=== PATIENT | female | born 1940 | race African-American/Black ===

== ENCOUNTER 2017-07-31 09:58 | Outpatient (CLI) | payer MEDICARE ==
--- NOTE | 2017-07-31 11:25 | RAD ---
2 VIEW CHEST: Date: 07/31/17 HISTORY: Dyspnea. COMPARISON: 09/28/15. FINDINGS: Lungs are clear. No infiltrates seen. Heart size within normal range. Mild aortic calcification again noted. Osseous structures unremarkable. IMPRESSION: No acute finding or interval change noted. POS: [facility]
== END 2017-07-31 09:59 | disposition home or self-care (01) ==
LOC: RAD 09:58
PROVIDERS: ATTEND Internal Medicine
DX: R06.00 Dyspnea, unspecified (principal)
CPT/HCPCS: 71020

== ENCOUNTER 2017-09-04 20:30 | Outpatient (CLI) | payer MEDICARE | END 2017-09-04 20:31 | disposition home or self-care (01) | LOC: SLEEPLAB 20:30 | PROVIDERS: ATTEND Internal Medicine | DX: G47.33 Obstructive sleep apnea (adult) (pediatric) (principal); R53.83 Other fatigue; I11.0 Hypertensive heart disease with heart failure; I50.9 Heart failure, unspecified; E11.9 Type 2 diabetes mellitus without complications; R09.02 Hypoxemia | CPT/HCPCS: 95810 ==

== ENCOUNTER 2017-09-24 15:48 | Inpatient (IN) | payer MEDICARE ==
[2017-09-24] MEDS ORDERED: Albuterol Sulfate 2.5 mg/3 ml Neb ONE (16:10)
--- NOTE | 2017-09-24 16:13 | RAD ---
ONE VIEW CHEST: COMPARISON: 07/31/17. HISTORY: Shortness of breath. FINDINGS: Atherosclerosis of the aorta. Slight elongation of the thoracic aorta. Normal cardiac silhouette. The pulmonary vessels are slightly prominent. Lungs are hyperinflated. Chronic changes, without con solidation or mass. No pneumothorax or osseous abnormalities. IMPRESSION: 1. Atherosclerosis. 2. Hyperinflation with chronic changes. 3. No acute cardiopulmonary process. POS: [facility]
[2017-09-24 16:17] LABS: #Eosinphils 0.2 thou/uL (0.0-0.7); #Lymphocytes 1.5 thou/uL (1.20-3.40); #Monocytes 0.8 thou/uL (0.11-0.59); #Neutrophils 10.5 thou/uL (1.40-6.50); %Basophils 0.4 % (0.0-1.0); %Eosinophils 1.8 % (0.0-10.0); %Lymphocytes 11.5 % (21.0-51.0); %Monocytes 6.3 % (0.0-10.0); %Neutrophils 80.1 % (42.0-75.0); Hemoglobin 13.4 g/dL (12.0-16.0); Mean Corpuscular HGB CONC 32.1 g/dL (32.0-36.0); Mean Corpuscular Hemoglobin 33.6 pg (27.0-31.0); Mean Platelet Volume 8.8 fL (7.4-10.4); Platelet Count 216 thou/uL (130-400); RBC Distribution Width 11.5 % (11.5-14.5); Red Blood Cell (RBC) Count 3.98 mill/uL (4.20-5.40); White Blood Cell (WBC) Count 13.2 thou/uL (4.8-10.8)
[2017-09-24] MEDS ORDERED: cefTRIAXone\\ROCEPHIN 1 GM in Sodium Chloride 0.9% 100 ML IVPB SCH (16:30)
[2017-09-24 16:34] LABS: ALT (SGPT) 11 U/L (8-55); AST (SGOT) 15 U/L (5-34); Albumin 3.6 g/dL (3.4-4.8); Alkaline Phosphatase 106 U/L (40-150); Anion Gap 12 mmol/L (10-20); BUN (Urea Nitrogen) 18 mg/dL (9.8-20.1); Bilirubin, Total 0.3 mg/dL (0.2-1.2); Calc. Creatinine Clearance 0 mL/min (70-130); Calcium 8.6 mg/dL (7.8-10.44); Carbon Dioxide 25 mmol/L (23-31); Chloride 106 mmol/L (98-107); Estimated GFR-MDRD 85; Globulin 3.5 g/dL (2.4-3.5); Glucose 242 mg/dL (83-110); Potassium 4.2 mmol/L (3.5-5.1); Protein, Total 7.1 g/dL (6.0-8.3); Sodium 139 mmol/L (136-145)
[2017-09-24 16:38] LABS: CKMB 2.4 ng/mL (0-6.6); Troponin I Less than 0.010 ng/mL (< 0.028)
[2017-09-24] MEDS ORDERED: Ondansetron HCl/PF 4 MG/2 ML Vial IVP PRN (17:26)
[2017-09-24] MEDS ORDERED: Acetaminophen 650 MG Suppository PR PRN (17:26)
[2017-09-24] MEDS ORDERED: Dextrose 5% in Water 1,000 ML IV PRN (17:28)
[2017-09-24] MEDS ORDERED: Dextrose 50% Abboject 50 ML SYRINGE SLOW IVP PRN (17:28)
[2017-09-24 17:43] LABS: CO2 Tension 58.9 mmHg (35.0-45.0); Hematocrit-ABG 41.9 % (36.0-47.0); Hemoglobin (Hb) 12.9 g/dL (12.0-16.0); O2 Tension (PaO2) 231.3 mmHg (80.0-100.0); pH, Arterial 7.26 (7.35-7.45)
[2017-09-24 17:44] LABS: Analyzer IN Cardio ER; Calcium, Ionized 1.2 mmol/L (1.12-1.30); Puncture Site RRA
--- NOTE | 2017-09-24 17:58 | HP ---
PRIMARY CARE PHYSICIAN: Ben Otto M.D. PUBLIC HEALTH DIETITIAN: Dr. Becker. CHIEF COMPLAINT: Shortness of breath. HISTORY OF PRESENT ILLNESS: Ms. Duarte is a pleasant 77-year-old lady who was seen at [facility] on 09/24/2017. She is accompanied by her . Ms. Duarte is able to provide some history. History was also obta ined from her , review of medical records and discussion with the emergency room physician. She was reportedly doing well until yesterday. Today morning, she developed shortness of breath. Sh isauro also developed a cough that is productive of whitish sputum. She did not have any fevers. She did not have any nausea, vomiting, diarrhea, or abdominal pain. There are no sick contacts. She was found to be hypoxic, tachypneic and hypertensive. She was therefore brought to the emergency room. REVIEW OF SYSTEMS: The following complete review of systems was negative, unless otherwise mentioned in the HPI or below: Constitutional: Weight loss or gain, ability to conduct usual activities. Sk in: Rash, itching. Eyes: Double vision, pain. ENT/Mouth: Nose bleeding, neck stiffness, pain, te nderness. Cardiovascular: Palpitations, dyspnea on exertion, orthopnea. Respiratory: Shortness of breath, wheezing, cough, hemoptysis, fever or night sweats. Gastrointestinal: Poor appetite, abdom inal pain, heartburn, nausea, vomiting, constipation, or diarrhea. Genitourinary: Urgency, frequenc y, dysuria, nocturia. Musculoskeletal: Pain, swelling. Neurologic/Psychiatric: Anxiety, depressio n. Allergy/Immunologic: Skin rash, bleeding tendency. PAST MEDICAL HISTORY: Significant for COPD, hypertension, diabetes mellitus, and dyslipidemia. PAST SURGICAL HISTORY: None. SOCIAL HISTORY: The patient currently smokes half a pack of cigarettes a day. She denies alcohol us e or recreational drug use. FAMILY HISTORY: Significant for severe COPD in her brother. ALLERGIES: LATEX. CURRENT MEDICATIONS: Simvastatin 40 mg daily, lisinopril 2.5 mg daily, metformin 500 mg 2 times a da y, glyburide 10 mg daily, aspirin 81 mg daily, vitamin B12 of 500 mcg daily, Anoro Ellipta 1 puff pascale ly, Lantus insulin 10 units subcutaneously daily, Proventil 90 mcg inhalation as needed, Ventolin neb ulizers as needed. PHYSICAL EXAMINATION: GENERAL: Ms. Duarte is awake and alert, in moderate respiratory distress on a bilevel positive airway pressure machine. VITAL SIGNS: Blood pressure is 140/69, pulse is 101. She is breathing at rate of 30 and saturating 98% on BiPAP. She is afebrile. EYES: No scleral icterus. No conjunctival pallor. ENT: Moist mucosal membranes, no oropharyngeal erythema or exudates. NECK: Accessory muscles of breathing are active. Trachea is midline. No thyromegaly. I could not assess jugular veins. RESPIRATORY: Accessory muscles of breathing are active. Chest wall movements are symmetric bilatera lly. Lung examination reveals diffuse expiratory wheeze. CARDIOVASCULAR: S1 and S2 are heard, regular. LUNGS: Peripheral pulses are palpable. No carotid bruit, no pericardial rub. ABDOMEN: Soft, nontender, bowel sounds heard, no hepatomegaly, no splenomegaly. NEUROLOGIC: Cranial nerves II-XII are intact. Deep tendon reflexes are 2+. SKIN: Bilateral lower extremity edema at the ankles, no rashes or subcutaneous nodules. LYMPHATIC: No cervical lymphadenopathy. PSYCHIATRIC: The patient appears anxious, oriented to person, place, and time. LABORATORY DATA: Ms. Duarte's labs and investigations were reviewed. I reviewed her electrocardiogra m, which shows sinus tachycardia, no ST changes to suggest an acute coronary syndrome. I also review ed her chest x-ray, which does not show any pulmonary infiltrates. She has hyperinflated lungs. Lab oratory investigations showed leukocytosis with 13,200 white cells, of which 80% are neutrophils, nor mal hemoglobin, normal platelet count, unremarkable comprehensive metabolic profile, elevated lactic acid level of 2.4, normal troponin I and a normal BNP of 27.4. ASSESSMENT AND PLAN: Ms. Duarte is a pleasant 77-year-old lady who was seen at [facility]. Her problem list includes: 1. Acute respiratory failure: Ms. Duarte is presenting with acute respiratory failure, likely second martin to chronic obstructive pulmonary disease exacerbation. She will be admitted to the hospital for further management. Pulmonology Service has been consulted by the emergency room physician and katie blank has been started on ceftriaxone, methylprednisolone, and DuoNebs. We will use oxygen p.r.n. We w ill continue BiPAP as needed. 2. Chronic obstructive pulmonary disease exacerbation. Management as described above. 3. Diabetes mellitus. Start Accu-Cheks, sliding scale. 4. Dyslipidemia: Continue statins. 5. Tobacco abuse: Patient has been counseled regarding tobacco cessation, we will start nicotine re placement therapy. 6. Hypertension: Monitor vital signs, titrate antihypertensives as needed. Many thanks for allowing me to participate in your patient's care. Please feel free to contact me wi th any questions or concerns. LEVEL OF RISK: High. LEVEL OF COMPLEXITY: High. ADDENDUM: I discussed Ms. Duarte's code status. She does not wish to be intubated. She is okay with chest comp ressions, electric shocks and vasopressors if needed.
[2017-09-24 18:32] VITALS: BMI 25.7
[2017-09-24] MEDS: Nicotine 14 MG PATCH TD SCH ×2 (18:37→18:52)
[2017-09-24] MEDS: Dextrose 5 % And 0.9 % NaCl 1,000 ML IV SCH (18:45)
[2017-09-24] MEDS: cefTRIAXone\\ROCEPHIN 1 GM, Syringe 0.4 ML in Sterile Water 9.6 ML SLOW IVP SCH (18:51)
[2017-09-24 19:38] LABS: Troponin I 0.018 ng/mL (< 0.028)
[2017-09-24 20:17] LABS: Lactic Acid 2.7 mmol/L (0.5-2.2)
[2017-09-24 22:30] LABS: Troponin I 0.016 ng/mL (< 0.028)
--- NOTE | 2017-09-25 00:43 | CON ---
DATE OF CONSULTATION: 09/24/2017 HISTORY OF PRESENT ILLNESS: A 77-year-old -Irish female, lifelong smoker, continues to smo ke. She had a PFT done in 10/2015, which shows very severe COPD. Numbers showed that she had marked hyperinflation. She now presents with increasing shortness of breath and cough. She just recently saw Dr. Becker in the office, and apparently prescribed low flow O2. She denies any chest pain, chills, sweats, or hemoptysis. PAST MEDICAL HISTORY: Diabetes, severe chronic obstructive pulmonary disease, previous bladder cance r. PAST SURGICAL HISTORY: Cystoscopy. MEDICATIONS: From home includes albuterol inhaler, inhaler, metformin 500, lisinopril 2.5, gly buride 5, simvastatin 40, Combivent inhaler. ALLERGIES: None. SOCIAL/FAMILY HISTORY: Noted ongoing tobacco abuse, no alcohol abuse. REVIEW OF SYSTEMS: Otherwise, 10-point negative. PHYSICAL EXAMINATION: VITAL SIGNS: Sats are BiPAP , respirations 20, blood pressure 130/80, respirations 18. CHEST: Decreased breath sounds, prolonged expiration. No wheezing. CARDIAC: Sinus tachycardia. ABDOMEN: Soft. X-ray shows hyperinflation, no acute infiltrate. LABORATORY DATA: White count 13,000, H&H 13 and 41, platelet count 216. Electrolytes are normal. IMPRESSION: 1. Chronic obstructive pulmonary disease exacerbation, bronchitis of ongoing tobacco. 2. Diabetes. PLAN: Continue noninvasive ventilation. When she is improved switch over to low flow O2. Neb treat ments, steroids, empiric antibiotics. We will notify Dr. Becker, consultation was noted.
[2017-09-25] MEDS: Dextrose 5 % And 0.9 % NaCl 1,000 ML IV SCH (03:33)
[2017-09-25] MEDS: HumaLOG 300 UNITS/3 ML VIAL SC PRN ×2 (06:29→21:43)
[2017-09-25 06:47] LABS: #Lymphocytes 0.6 thou/uL (1.20-3.40); #Monocytes 0.2 thou/uL (0.11-0.59); #Neutrophils 9.6 thou/uL (1.40-6.50); %Basophils 0.1 % (0.0-1.0); %Eosinophils 0.3 % (0.0-10.0); %Lymphocytes 5.8 % (21.0-51.0); %Monocytes 1.6 % (0.0-10.0); %Neutrophils 92.2 % (42.0-75.0); Hemoglobin 13.9 g/dL (12.0-16.0); Mean Corpuscular HGB CONC 31.1 g/dL (32.0-36.0); Mean Corpuscular Hemoglobin 32.6 pg (27.0-31.0); Mean Platelet Volume 9.8 fL (7.4-10.4); Platelet Count 169 thou/uL (130-400); RBC Distribution Width 11.7 % (11.5-14.5); Red Blood Cell (RBC) Count 4.27 mill/uL (4.20-5.40); White Blood Cell (WBC) Count 10.4 thou/uL (4.8-10.8)
[2017-09-25 08:05] LABS: Anion Gap 14 mmol/L (10-20); BUN (Urea Nitrogen) 21 mg/dL (9.8-20.1); Calc. Creatinine Clearance 52 mL/min (70-130); Calcium 9.4 mg/dL (7.8-10.44); Carbon Dioxide 27 mmol/L (23-31); Chloride 106 mmol/L (98-107); Estimated GFR-MDRD 76; Glucose 166 mg/dL (83-110); Potassium 4.7 mmol/L (3.5-5.1); Sodium 142 mmol/L (136-145)
[2017-09-25] MEDS: Enoxaparin Sodium 40 MG/0.4 ML SYRINGE SC SCH (09:31)
[2017-09-25] MEDS: Guaifenesin DM 100-10/5 ML UDCUP PO PRN (09:39)
[2017-09-25] MEDS: Acetaminophen 325 MG TAB PO PRN (09:39)
--- NOTE | 2017-09-25 14:35 | PDOC.PN ---
- Subjective Encounter Start Date: 09/25/17 Encounter Start Time: 14:33 Subjective: feels better.breathing easier - Objective Resuscitation Status: Resuscitation Status DNI:No Intubation MAR Reviewed: Yes Vital Signs & Weight: Vital Signs (12 hours) Temp Pulse Resp BP Pulse Ox 09/25/17 12:01 99 22 H 97 09/25/17 11:59 97.8 F 94 20 131/73 99 09/25/17 08:11 107 H 97 09/25/17 07:40 97.6 F 96 20 165/67 H 95 09/25/17 07:37 97.7 F 75 24 H 98 09/25/17 04:00 97.7 F 75 24 H 137/63 99 09/25/17 03:10 81 Weight Weight 131 lb 6.4 oz I&O: 09/24/17 09/25/17 09/26/17 06:59 06:59 06:59 Intake Total 30 Balance 30 Result Diagrams: 09/25/17 05:35 09/25/17 07:31 Additional Labs: Accuchecks 09/25/17 09/25/17 09/24/17 11:12 05:35 20:14 POC Glucose 214 H 191 H 266 H Phys Exam - Physical Examination Constitutional: NAD HEENT: PERRLA, moist MMs, sclera anicteric, TM's clear, oral pharynx no lesions , 2+ tonsils Neck: no nodes, no JVD, supple, full ROM Respiratory: no wheezing, no rales, no rhonchi, clear to auscultation bilateral Cardiovascular: RRR, no significant murmur Gastrointestinal: soft, non-tender, no distention, positive bowel sounds Musculoskeletal: no edema, pulses present Neurological: non-focal, normal sensation, moves all 4 limbs Psychiatric: normal affect, A&O x 3 Skin: no rash Dx/Plan (1) Acute respiratory failure Code(s): J96.00 - ACUTE RESPIRATORY FAILURE, UNSP W HYPOXIA OR HYPERCAPNIA Status: Acute Qualifiers: Respiratory failure complication: hypoxia and hypercapnia Qualified Code(s) : J96.01 - Acute respiratory failure with hypoxia; J96.02 - Acute respiratory failure with hypercapnia; J96.02 - Acute respiratory failure with hypercapnia; J96.02 - Acute respiratory failure with hypercapnia Comment: improved.Off of Bipap (2) Acute bronchitis with chronic obstructive pulmonary disease (COPD) Code(s): J44.0 - CHRONIC OBSTRUCTIVE PULMON DISEASE W ACUTE LOWER RESP INFCT; J20.9 - ACUTE BRONCHITIS, UNSPECIFIED Status: Acute (3) DM2 (diabetes mellitus, type 2) Status: Acute (4) HLD (hyperlipidemia) Code(s): E78.5 - HYPERLIPIDEMIA, UNSPECIFIED Status: Acute - Plan PT/OT, social work lecturer, respiratory therapy, incentive spirometry, DVT proph w/ SCDs cont nebs,sterois,ABx.PCCM following.NAAT results pending -: 09/02 GPC in blood Cx-palmira cuevas.follow final results -: am labs. -: Ok to transfer out of CCU. * . Review of Systems - Review of Systems Constitutional: negative: fever, chills, sweats, weakness, malaise, other Respiratory: negative: Cough, Dry, Shortness of Breath, Hemoptysis, SOB with Excertion, Pleuritic Pain, Sputum, Wheezing Cardiovascular: negative: chest pain, palpitations, orthopnea, paroxysmal nocturnal dyspnea, edema, light headedness, other Gastrointestinal: negative: Nausea, Vomiting, Abdominal Pain, Diarrhea, Constipation, Melena, Hematochezia, Other Genitourinary: negative: Dysuria, Frequency, Incontinence, Hematuria, Retention , Other Musculoskeletal: negative: Neck Pain, Shoulder Pain, Arm Pain, Back Pain, Hand Pain, Leg Pain, Foot Pain, Other Neurological: negative: Weakness, Numbness, Incoordination, Change in Speech, Confusion, Seizures, Other - Medications/Allergies Allergies/Adverse Reactions: Allergies Allergy/AdvReac Type Severity Reaction Status Date / Time latex Allergy Verified 09/24/17 17:54 Medications: Current Medications Acetaminophen (Tylenol) 650 mg PO Q4H PRN PRN Reason: Headache/Fever or Pain Last Admin: 09/25/17 09:39 Dose: 650 mg Acetaminophen (Tylenol) 650 mg [place] Q4H PRN PRN Reason: Headache/Fever or Pain Albuterol/Ipratropium (Duoneb) 3 ml NEB [id number] [facility] Last Admin: 09/25/17 12:01 Dose: 3 ml Dextrose/Water (Dextrose 50%) 25 gm SLOW IVP PRN PRN PRN Reason: Hypoglycemia Enoxaparin Sodium (Lovenox) 40 mg SC 0900 [facility] Last Admin: 09/25/17 09:31 Dose: 40 mg Glucagon (Glucagon) 1 mg IM PRN PRN PRN Reason: Hypoglycemia Guaifenesin/Dextromethorphan (Robitussin Dm) 15 ml PO Q4H PRN PRN Reason: Cough Last Admin: 09/25/17 09:39 Dose: 15 ml Dextrose/Water (D5w) 1,000 mls @ 0 mls/hr IV .Q0M PRN; As Directed PRN Reason: Hypoglycemia Ceftriaxone Sodium 1 gm/ (Syringe 0.4 ml/ Sterile Water) 10 mls @ 120 mls/hr SLOW IVP 1800 [facility] Last Admin: 09/24/17 18:51 Dose: 10 mls Insulin Human Lispro (Humalog) 0 units SC .MILD SLIDING SCALE PRN PRN Reason: Mild Correctional Scale Last Admin: 09/25/17 06:29 Dose: 2 unit Nicotine (Nicoderm Patch) 14 mg TD Q24HR [facility] Last Admin: 09/24/17 18:52 Dose: 14 mg Ondansetron HCl (Zofran) 4 mg IVP Q6H PRN PRN Reason: Nausea/Vomiting Prednisone (Prednisone) 40 mg PO QAM-WM [facility] Sodium Chloride (Flush - Normal Saline) 10 ml IVF Q12HR [facility] Last Admin: 09/25/17 09:32 Dose: 10 ml Sodium Chloride (Flush - Normal Saline) 10 ml IVF PRN PRN PRN Reason: Saline Flush
[2017-09-25] MEDS ORDERED: Furosemide 40 MG/4 ML VIAL SLOW IVP SCH (17:00)
--- NOTE | 2017-09-25 17:21 | PRG ---
DATE OF SERVICE: 09/25/2017 SERVICE: Pulmonary Medicine. INTERVAL HISTORY: The patient is doing really well from a respiratory standpoint. She presented to the hospital yesterday in a very terrible place. She was hypoxemic and breathing very uncomfortably. She was initiated on a BiPAP and when she originally arrived in the IMCU, was breathing 30 times a minute. She was in visible distress. As the evening wore on, she became more and more comfortable a nd this morning, she is tolerating a very good BiPAP rate. She denies any current fevers, chills, na usea or vomiting. She is coughing up sputum. She has some sick contacts that were positive. PHYSICAL EXAMINATION: VITAL SIGNS: Afebrile, pulse 98, blood pressure 147/69, respirations 20, saturation 100% on 2 liters nasal cannula. GENERAL: The patient is awake and alert, in no apparent distress. LUNGS: Decent air entry for her. There is a prolonged expiratory phase with polyphonic wheezing. D ependent crackles are minimal. HEART: Normal rate, regular. ABDOMEN: Soft, nontender, nondistended, bowel sounds positive. MUSCULOSKELETAL: No cyanosis or clubbing. There is 1+ pitting in the bilateral lower extremities. NEUROLOGIC: Grossly nonfocal. LABORATORY DATA: WBC 10.4, hemoglobin 13.9, platelets 169,000. A PH 7.26, pCO2 of 59, pO2 of 231 on 100% FiO2 at that time. Basic metabolic profile was essentially unremarkable. Troponin is negative x1. Her BNP was also normal and liver function studies were also unremarkable. Respiratory virus p rofile is positive for rhinovirus. Blood cultures x1 is negative. The other one has gram positive c occi growing. Influenza A and B is negative. ASSESSMENT: 1. Acute on chronic hypoxic and hypercapnic respiratory failure. 2. Chronic obstructive pulmonary disease with acute exacerbation secondary to rhinovirus. 3. Acute on chronic diastolic heart failure, minimal. PLAN: I will give her a single dose of Lasix today. We will continue supportive care with antibioti cs, nebulized medications, and steroids. I will switch her over to p.o. prednisone, which will be co ntinued on a daily basis for the time being. The blood culture is likely a contaminant. I would lik e to keep her in the IMCU for an additional 24 hours as she was in a very severe place yesterday and she may need the BiPAP intermittently tonight.
[2017-09-25] MEDS: cefTRIAXone\\ROCEPHIN 1 GM, Syringe 0.4 ML in Sterile Water 9.6 ML SLOW IVP SCH (18:24)
[2017-09-25] MEDS: Nicotine 14 MG PATCH TD SCH (18:24)
[2017-09-26] MEDS: predniSONE 20 MG TAB PO SCH (09:58)
[2017-09-26] MEDS: Enoxaparin Sodium 40 MG/0.4 ML SYRINGE SC SCH (09:58)
--- NOTE | 2017-09-26 10:12 | PRG ---
DATE OF SERVICE: 09/26/2017 SERVICE: Pulmonary Medicine INTERVAL HISTORY: The patient is doing really well from a respiratory standpoint. She is breathing very comfortably. She used her BiPAP last night. It was the best sleep that she has had in a long p eriod of time. She is requesting that we attempt to set this thing up in the outpatient setting [place] I think is reasonable. Otherwise, her cough is improving a little bit. She has a better appetite today and her strength is improving as well. PHYSICAL EXAMINATION: VITAL SIGNS: Afebrile, pulse 88, blood pressure 116/66, respiration 19, saturation 96% on 2 liters n tad cannula. HEENT: Normocephalic, atraumatic. Sclerae are white, conjunctivae pink. Oral and nasal mucosa is m oist without lesions. LUNGS: Improved air entry. There is a slightly prolonged expiratory phase. Wheezing is present, bu t much improved. Crackles are no longer present. HEART: Normal rate, regular. ABDOMEN: Soft, nontender, nondistended. Bowel sounds are positive. MUSCULOSKELETAL: No cyanosis or clubbing. No pitting in the bilateral lower extremities. NEUROLOGIC: Grossly nonfocal. LABORATORY DATA: Respiratory virus panel is positive for rhinovirus. One out of 2 blood cultures is growing alpha hemolytic streptococcus. ASSESSMENT: 1. Acute on chronic hypoxic and hypercapnic respiratory failure. 2. Chronic obstructive pulmonary disease with acute exacerbation secondary rhinovirus. 3. Acute on chronic diastolic heart failure, returned to baseline. DISCUSSION AND PLAN: I have assessed this patient and will be ordering volume ventilation for noctur nal and as needed daytime use for symptom management of chronic respiratory failure. Traditional monica e BiPAP is insufficient due to the severity of the patient's disease. COPD is a major contributing f actor of the patient's chronic respiratory failure. She does not have significant degree of obstruct jay jay apneas. Otherwise, supportive care including nebulized medications, steroids, antibiotics will b e continued. Pulmonary Critical Care will continue to follow. Once the patient indicates that she f eels safe to go home, she can be considered for discharge.
[2017-09-26] MEDS: HumaLOG 300 UNITS/3 ML VIAL SC PRN ×2 (12:08→18:20)
--- NOTE | 2017-09-26 15:17 | PDOC.PN ---
- Subjective Encounter Start Date: 09/26/17 Encounter Start Time: 15:16 Subjective: feels much better but feels that she needs O2 all the time - Objective Resuscitation Status: Resuscitation Status DNI:No Intubation MAR Reviewed: Yes Vital Signs & Weight: Vital Signs (12 hours) Temp Pulse Resp BP Pulse Ox 09/26/17 11:21 97.8 F 97 24 H 121/66 100 09/26/17 11:16 107 H 22 H 100 09/26/17 11:15 97.8 F 97 24 H 100 09/26/17 08:00 97.6 F 88 19 96 09/26/17 07:21 97.6 F 88 19 116/66 96 09/26/17 06:34 97 09/26/17 06:32 90 19 97 09/26/17 04:00 97.8 F 87 20 123/51 L 98 Weight Weight 131 lb 6.4 oz I&O: 09/25/17 09/26/17 09/27/17 06:59 06:59 06:59 Intake Total 30 540 Balance 30 540 Result Diagrams: 09/25/17 05:35 09/25/17 07:31 Additional Labs: Accuchecks 09/26/17 09/26/17 09/25/17 10:38 06:19 20:43 POC Glucose 155 H 87 230 H 09/25/17 16:58 POC Glucose 220 H Microbiology 09/25/17 11:37 Nasopharyngeal swab Respiratory Panel (PCR) - Final+ rhinoVirus 09/24/17 16:05 Nasal swab Influenza Types A,B Direct EIA - Final 09/24/17 16:51 Venous blood - Right Hand Blood Culture - Preliminary Specimen has been received and culture in progress. No Growth to date. 09/24/17 16:00 Venous blood - Left Arm Blood Culture - Preliminary Alpha-Hemolytic Streptococcus Phys Exam - Physical Examination Constitutional: NAD HEENT: PERRLA, moist MMs, sclera anicteric, oral pharynx no lesions Neck: no nodes, no JVD, supple, full ROM Respiratory: no wheezing, clear to auscultation bilateral Cardiovascular: RRR, no significant murmur Gastrointestinal: soft, non-tender, no distention, positive bowel sounds Musculoskeletal: no edema, pulses present Neurological: non-focal, normal sensation, moves all 4 limbs Psychiatric: normal affect, A&O x 3 Skin: no rash Dx/Plan (1) Acute bronchitis with chronic obstructive pulmonary disease (COPD) Code(s): J44.0 - CHRONIC OBSTRUCTIVE PULMON DISEASE W ACUTE LOWER RESP INFCT; J20.9 - ACUTE BRONCHITIS, UNSPECIFIED Status: Acute (2) DM2 (diabetes mellitus, type 2) Status: Acute (3) HLD (hyperlipidemia) Code(s): E78.5 - HYPERLIPIDEMIA, UNSPECIFIED Status: Acute (4) Acute respiratory failure Code(s): J96.00 - ACUTE RESPIRATORY FAILURE, UNSP W HYPOXIA OR HYPERCAPNIA Status: Resolved Qualifiers: Respiratory failure complication: hypoxia and hypercapnia Qualified Code(s) : J96.01 - Acute respiratory failure with hypoxia; J96.02 - Acute respiratory failure with hypercapnia; J96.02 - Acute respiratory failure with hypercapnia; J96.02 - Acute respiratory failure with hypercapnia Comment: improved.Off of Bipap - Plan plan discussed w/ family, PT/OT, social work administrator, respiratory therapy, incentive spirometry, out of bed/ambulate, DVT proph w/SCDs Cont nebs,Po steroids.PCCM following.[place] negative -: Will eval for home O2 candidacy on day of DC -: To be trey up for home CPAP per PCCM.CM to assist -: cont to monitor.DC when OK w PCCM & home set up done * . Review of Systems - Review of Systems Constitutional: negative: fever, chills, sweats, weakness, malaise, other Respiratory: SOB with Excertion. negative: Cough, Dry, Shortness of Breath, Hemoptysis, Pleuritic Pain, Sputum, Wheezing Cardiovascular: negative: chest pain, palpitations, orthopnea, paroxysmal nocturnal dyspnea, edema, light headedness, other Gastrointestinal: negative: Nausea, Vomiting, Abdominal Pain, Diarrhea, Constipation, Melena, Hematochezia, Other Genitourinary: negative: Dysuria, Frequency, Incontinence, Hematuria, Retention , Other Musculoskeletal: negative: Neck Pain, Shoulder Pain, Arm Pain, Back Pain, Hand Pain, Leg Pain, Foot Pain, Other Neurological: negative: Weakness, Numbness, Incoordination, Change in Speech, Confusion, Seizures, Other - Medications/Allergies Allergies/Adverse Reactions: Allergies Allergy/AdvReac Type Severity Reaction Status Date / Time latex Allergy Verified 09/24/17 17:54 Medications: Current Medications Acetaminophen (Tylenol) 650 mg PO Q4H PRN PRN Reason: Headache/Fever or Pain Last Admin: 09/25/17 09:39 Dose: 650 mg Acetaminophen (Tylenol) 650 mg ID Q4H PRN PRN Reason: Headache/Fever or Pain Albuterol/Ipratropium (Duoneb) 3 ml NEB [id number] [facility] Last Admin: 09/26/17 13:33 Dose: 3 ml Cefdinir (Omnicef) 300 mg PO BID [facility] Stop: 10/01/17 21:01 Dextrose/Water (Dextrose 50%) 25 gm SLOW IVP PRN PRN PRN Reason: Hypoglycemia Enoxaparin Sodium (Lovenox) 40 mg SC 0900 [facility] Last Admin: 09/26/17 09:58 Dose: 40 mg Glucagon (Glucagon) 1 mg IM PRN PRN PRN Reason: Hypoglycemia Guaifenesin/Dextromethorphan (Robitussin Dm) 15 ml PO Q4H PRN PRN Reason: Cough Last Admin: 09/25/17 09:39 Dose: 15 ml Dextrose/Water (D5w) 1,000 mls @ 0 mls/hr IV .Q0M PRN; As Directed PRN Reason: Hypoglycemia Insulin Human Lispro (Humalog) 0 units SC .MILD SLIDING SCALE PRN PRN Reason: Mild Correctional Scale Last Admin: 09/26/17 12:08 Dose: 2 unit Nicotine (Nicoderm Patch) 14 mg TD Q24HR [facility] Last Admin: 09/25/17 18:24 Dose: 14 mg Ondansetron HCl (Zofran) 4 mg IVP Q6H PRN PRN Reason: Nausea/Vomiting Last Admin: 09/25/17 22:12 Dose: 4 mg Prednisone (Prednisone) 40 mg PO QAM-WM [facility] Stop: 10/01/17 08:01 Last Admin: 09/26/17 09:58 Dose: 40 mg Sodium Chloride (Flush - Normal Saline) 10 ml IVF Q12HR [facility] Last Admin: 09/26/17 09:58 Dose: 10 ml Sodium Chloride (Flush - Normal Saline) 10 ml IVF PRN PRN PRN Reason: Saline Flush
[2017-09-26] MEDS: Nicotine 14 MG PATCH TD SCH (16:57)
[2017-09-26] MEDS ORDERED: PROVENTIL INHALER 6.7 G (200 INHALATIONS) INH PRN (17:15)
[2017-09-26] MEDS: Cefdinir 300 MG CAP PO SCH (20:47)
[2017-09-27] MEDS: Cefdinir 300 MG CAP PO SCH ×2 (08:20→20:26)
[2017-09-27] MEDS: predniSONE 20 MG TAB PO SCH (08:20)
[2017-09-27] MEDS: Enoxaparin Sodium 40 MG/0.4 ML SYRINGE SC SCH (08:21)
[2017-09-27 11:09] LABS: #Lymphocytes 0.7 thou/uL (1.20-3.40); #Monocytes 0.3 thou/uL (0.11-0.59); #Neutrophils 6.7 thou/uL (1.40-6.50); %Basophils 0.6 % (0.0-1.0); %Eosinophils 0.5 % (0.0-10.0); %Lymphocytes 8.9 % (21.0-51.0); %Monocytes 3.8 % (0.0-10.0); %Neutrophils 86.2 % (42.0-75.0); Hemoglobin 12.1 g/dL (12.0-16.0); Mean Corpuscular HGB CONC 31.8 g/dL (32.0-36.0); Mean Corpuscular Hemoglobin 33.4 pg (27.0-31.0); Platelet Count 194 thou/uL (130-400); RBC Distribution Width 11.4 % (11.5-14.5); Red Blood Cell (RBC) Count 3.63 mill/uL (4.20-5.40); White Blood Cell (WBC) Count 7.7 thou/uL (4.8-10.8)
[2017-09-27] MEDS ORDERED: Albuterol Sulfate 2.5 mg/3 ml Neb NEB PRN (11:19)
[2017-09-27 11:24] LABS: ALT (SGPT) 11 U/L (8-55); AST (SGOT) 10 U/L (5-34); Albumin 3.3 g/dL (3.4-4.8); Alkaline Phosphatase 82 U/L (40-150); Anion Gap 6 mmol/L (10-20); BUN (Urea Nitrogen) 24 mg/dL (9.8-20.1); Bilirubin, Total 0.5 mg/dL (0.2-1.2); Calc. Creatinine Clearance 55 mL/min (70-130); Calcium 8.5 mg/dL (7.8-10.44); Carbon Dioxide 32 mmol/L (23-31); Chloride 104 mmol/L (98-107); Estimated GFR-MDRD 76; Globulin 2.8 g/dL (2.4-3.5); Glucose 288 mg/dL (83-110); Magnesium 1.9 mg/dL (1.6-2.6); Protein, Total 6.1 g/dL (6.0-8.3); Sodium 138 mmol/L (136-145)
--- NOTE | 2017-09-27 11:41 | PRG ---
DATE OF SERVICE: 09/27/2017 SUBJECTIVE: The patient is doing poorly today in terms of wheezing and shortness of breath. OBJECTIVE: VITAL SIGNS: Temperature was 98.4, pulse 89, respirations 18, O2 sat was 71% on 1 liter when entered the room and improved to 89% on 3 liters, blood pressure 120/69. HEENT: Unremarkable. NECK: She has no JVD. LUNGS: Expiratory wheezing and some accessory muscle use. CARDIAC: S1 and S2 regular. ABDOMEN: Soft. EXTREMITIES: No edema. LABORATORY DATA: White blood cell count 7.7, hematocrit 38 and platelet count 194. ASSESSMENT: 1. Chronic obstructive pulmonary disease with exacerbation. 2. Chronic respiratory failure. PLAN: Start breathing treatment, increase her oxygen to 3 liters and give one dose of IV steroids.
[2017-09-27] MEDS ORDERED: methylPREDNISolone Sod Succ/PF 125 MG/2 ML VIAL IVP SCH (12:00)
[2017-09-27] MEDS: HumaLOG 300 UNITS/3 ML VIAL SC PRN ×2 (12:08→16:42)
[2017-09-27] MEDS: Guaifenesin DM 100-10/5 ML UDCUP PO PRN (12:29)
[2017-09-27] MEDS ORDERED: Albuterol Sulfate 1.25 MG/3 ML NEB ONE (12:30)
[2017-09-27] MEDS: Nicotine 14 MG PATCH TD SCH (16:40)
--- NOTE | 2017-09-27 19:29 | PDOC.PN ---
- Subjective Encounter Start Date: 09/27/17 Encounter Start Time: 12:45 Patient seen and examined. SOB +, Cough with some production. No overnight events - Objective Resuscitation Status: Resuscitation Status DNI:No Intubation MAR Reviewed: Yes Vital Signs & Weight: Vital Signs (12 hours) Temp Pulse Resp BP BP Pulse Ox 09/27/17 18:33 94 20 94 L 09/27/17 15:22 98.4 F 101 H 17 161/73 H 96 09/27/17 14:52 98.3 F 113 H 20 100 09/27/17 14:09 101 H 20 99 09/27/17 11:30 92 20 09/27/17 09:40 89 18 96 09/27/17 08:02 98.4 F 89 16 120/69 96 09/27/17 08:00 98.4 F 89 16 Weight Weight 140 lb 2 oz I&O: 09/26/17 09/27/17 09/28/17 06:59 06:59 06:59 Intake Total 540 1480 Balance 540 1480 Result Diagrams: 09/27/17 10:51 09/27/17 10:51 Additional Labs: Accuchecks 09/27/17 09/27/17 09/26/17 16:35 04:26 20:37 POC Glucose 227 H 152 H 252 H Phys Exam - Physical Examination Pt in mild - mod resp distress Respiratory: no rales Scat wheezing/rhonchi Cardiovascular: RRR, no rub Gastrointestinal: soft, non-tender, positive bowel sounds Musculoskeletal: no edema Neurological: moves all 4 limbs Psychiatric: A&O x 3 Dx/Plan - Plan plan discussed w/ family, continue antibiotics, respiratory therapy, DVT proph w /lovenox, DVT proph w/SCDs IMPRESSION: 1. Acute hypoxic/hypercapnic respiratory failure due to COPD exacerbation 2. DM2 - on sliding scal 3. Tobacco dep 4. HTN 5. Dyslipidemia / Chronic diastolic heart failure/ Mod TR PLAN: * Patient seen by Dr Smith earlier today - started on IV steroids with orders to transfer to IMCU * Cont Atbx * Add Pepcid * Cont Nebs Q4h * Cont to monitor Review of Systems - Review of Systems Cardiovascular: negative: chest pain, palpitations, orthopnea, paroxysmal nocturnal dyspnea, edema, light headedness Gastrointestinal: negative: Nausea, Vomiting, Abdominal Pain, Diarrhea, Constipation, Melena, Hematochezia - Medications/Allergies Allergies/Adverse Reactions: Allergies Allergy/AdvReac Type Severity Reaction Status Date / Time latex Allergy Verified 09/24/17 17:54 Medications: Current Medications Acetaminophen (Tylenol) 650 mg PO Q4H PRN PRN Reason: Headache/Fever or Pain Last Admin: 09/25/17 09:39 Dose: 650 mg Acetaminophen (Tylenol) 650 mg IA Q4H PRN PRN Reason: Headache/Fever or Pain Albuterol Sulfate (Proventil Hfa) 2 puff INH Q4H PRN PRN Reason: Cough Albuterol Sulfate (Ventolin) 2.5 mg NEB Q2H PRN PRN Reason: Dyspnea/Wheezing/SOB Last Admin: 09/27/17 12:30 Dose: 2.5 mg Albuterol/Ipratropium (Duoneb) 3 ml NEB [id number] [facility] Last Admin: 09/27/17 18:33 Dose: 3 ml Cefdinir (Omnicef) 300 mg PO BID [facility] Stop: 10/01/17 21:01 Last Admin: 09/27/17 08:20 Dose: 300 mg Dextrose/Water (Dextrose 50%) 25 gm SLOW IVP PRN PRN PRN Reason: Hypoglycemia Docusate Sodium (Colace) 100 mg PO BID [facility] Enoxaparin Sodium (Lovenox) 40 mg SC 0900 [facility] Last Admin: 09/27/17 08:21 Dose: 40 mg Famotidine (Pepcid) 20 mg PO BID [facility] Glucagon (Glucagon) 1 mg IM PRN PRN PRN Reason: Hypoglycemia Guaifenesin/Dextromethorphan (Robitussin Dm) 15 ml PO Q4H PRN PRN Reason: Cough Last Admin: 09/27/17 12:29 Dose: 15 ml Dextrose/Water (D5w) 1,000 mls @ 0 mls/hr IV .Q0M PRN; As Directed PRN Reason: Hypoglycemia Insulin Human Lispro (Humalog) 0 units SC .MILD SLIDING SCALE PRN PRN Reason: Mild Correctional Scale Last Admin: 09/27/17 16:42 Dose: 3 unit Methylprednisolone Sodium Succinate (Solu-Medrol) 40 mg IVP Q6HR [facility] Last Admin: 09/27/17 16:41 Dose: 40 mg Nicotine (Nicoderm Patch) 14 mg TD Q24HR [facility] Last Admin: 09/27/17 16:40 Dose: 14 mg Ondansetron HCl (Zofran) 4 mg IVP Q6H PRN PRN Reason: Nausea/Vomiting Last Admin: 09/25/17 22:12 Dose: 4 mg Sodium Chloride (Flush - Normal Saline) 10 ml IVF Q12HR [facility] Last Admin: 09/27/17 08:27 Dose: 10 ml Sodium Chloride (Flush - Normal Saline) 10 ml IVF PRN PRN PRN Reason: Saline Flush
[2017-09-27] MEDS: Famotidine 20 MG TAB PO SCH (20:26)
[2017-09-27] MEDS: Docusate 100 MG CAP PO SCH (20:26)
[2017-09-27] MEDS ORDERED: HumaLOG 300 UNITS/3 ML VIAL SC PRN (21:01)
[2017-09-28 04:27] LABS: #Lymphocytes 0.5 thou/uL (1.20-3.40); #Monocytes 0.2 thou/uL (0.11-0.59); #Neutrophils 6.8 thou/uL (1.40-6.50); %Eosinophils 0.2 % (0.0-10.0); %Lymphocytes 6.1 % (21.0-51.0); %Monocytes 2.4 % (0.0-10.0); %Neutrophils 91.3 % (42.0-75.0); Hemoglobin 12.5 g/dL (12.0-16.0); Mean Corpuscular HGB CONC 32.3 g/dL (32.0-36.0); Mean Corpuscular Hemoglobin 33.6 pg (27.0-31.0); Mean Platelet Volume 8.9 fL (7.4-10.4); Platelet Count 199 thou/uL (130-400); RBC Distribution Width 11.4 % (11.5-14.5); Red Blood Cell (RBC) Count 3.72 mill/uL (4.20-5.40); White Blood Cell (WBC) Count 7.5 thou/uL (4.8-10.8)
[2017-09-28 04:44] LABS: Lactic Acid 0.9 mmol/L (0.5-2.2)
[2017-09-28 04:50] LABS: Albumin 3.4 g/dL (3.4-4.8); Anion Gap 9 mmol/L (10-20); BUN (Urea Nitrogen) 25 mg/dL (9.8-20.1); BUN/Creatinine Ratio 27.78; Calc. Creatinine Clearance 54 mL/min (70-130); Calcium 8.9 mg/dL (7.8-10.44); Carbon Dioxide 30 mmol/L (23-31); Chloride 105 mmol/L (98-107); Estimated GFR-MDRD 74; Glucose 276 mg/dL (83-110); Phosphorus 3.3 mg/dL (2.3-4.7); Potassium 4.8 mmol/L (3.5-5.1); Sodium 139 mmol/L (136-145)
[2017-09-28] MEDS: HumaLOG 300 UNITS/3 ML VIAL SC PRN ×3 (06:14→17:12)
[2017-09-28] MEDS: Cefdinir 300 MG CAP PO SCH ×2 (08:09→19:43)
[2017-09-28] MEDS: Famotidine 20 MG TAB PO SCH ×2 (08:09→19:43)
[2017-09-28] MEDS: Docusate 100 MG CAP PO SCH ×2 (08:10→19:42)
[2017-09-28] MEDS: Enoxaparin Sodium 40 MG/0.4 ML SYRINGE SC SCH (08:10)
--- NOTE | 2017-09-28 08:41 | PDOC.PN ---
- Subjective Encounter Start Date: 09/28/17 Encounter Start Time: 08:38 Ms. Duarte was seen today in follow-up. She says she is breathing better today. she has had less cough. - Objective Resuscitation Status: Resuscitation Status DNI:No Intubation MAR Reviewed: Yes Vital Signs & Weight: Vital Signs (12 hours) Temp Pulse Resp BP Pulse Ox 09/28/17 07:42 98.1 F 82 18 138/64 98 09/28/17 07:23 98.1 F 82 14 98 09/28/17 07:11 98 09/28/17 07:09 83 18 98 09/28/17 04:00 97.6 F 81 18 130/65 96 09/28/17 02:18 80 16 98 09/28/17 02:09 81 18 144/68 H 98 09/28/17 00:00 97.8 F 91 18 137/64 97 09/27/17 22:18 94 20 98 Weight Weight 140 lb 2 oz I&O: 09/27/17 09/28/17 09/29/17 06:59 06:59 06:59 Intake Total 1480 820 Balance 1480 820 Result Diagrams: 09/28/17 04:10 09/28/17 04:10 Additional Labs: Accuchecks 09/28/17 09/27/17 09/27/17 05:26 20:16 16:35 POC Glucose 242 H 282 H 227 H Phys Exam - Physical Examination HEENT: PERRLA + expiratory wheeze, no rales Cardiovascular: RRR, no significant murmur Gastrointestinal: soft, non-tender, positive bowel sounds Musculoskeletal: no edema Dx/Plan (1) Acute and chronic respiratory failure with hypoxia Code(s): J96.21 - ACUTE AND CHRONIC RESPIRATORY FAILURE WITH HYPOXIA Status: Acute (2) Acute on chronic diastolic (congestive) heart failure Code(s): I50.33 - ACUTE ON CHRONIC DIASTOLIC (CONGESTIVE) HEART FAILURE Status : Acute (3) Acute bronchitis with chronic obstructive pulmonary disease (COPD) Code(s): J44.0 - CHRONIC OBSTRUCTIVE PULMON DISEASE W ACUTE LOWER RESP INFCT; J20.9 - ACUTE BRONCHITIS, UNSPECIFIED Status: Acute (4) DM2 (diabetes mellitus, type 2) Status: Acute - Plan * Acute on chronic respiratory failure- improved * Will try to suellen steroids once again, and hopefully the COPD will not flair * DM- blood glucose is elevated- likely from steroids- will continue SSI * Acute on chronic diastolic heart failure- stable.
--- NOTE | 2017-09-28 11:13 | PRG ---
DATE OF SERVICE: 09/28/2017 SUBJECTIVE: She feels better than yesterday. Actually, did not require the BiPAP yesterday. OBJECTIVE: VITAL SIGNS: Temperature 98.1, pulse 82, respiration rate 18, O2 saturation 98% on 2 liters and bloo d pressure 130/64. HEENT: Unremarkable. NECK: No JVD. CHEST: No wheezing today. CARDIAC: S1 and S2 regular. ABDOMEN: Soft. EXTREMITIES: No edema. ASSESSMENT: Chronic obstructive pulmonary disease with exacerbation. PLAN: I think she can probably be transferred back to medical, continue the steroids, but I would no t try to taper them very fast, given the set back of yesterday.
[2017-09-28] MEDS: Nicotine 14 MG PATCH TD SCH (16:43)
[2017-09-29] MEDS: Acetaminophen 325 MG TAB PO PRN (05:25)
[2017-09-29 08:24] VITALS: BP 147/73; TEMP 98.2
[2017-09-29] MEDS: Enoxaparin Sodium 40 MG/0.4 ML SYRINGE SC SCH (09:18)
[2017-09-29] MEDS: Famotidine 20 MG TAB PO SCH (09:18)
[2017-09-29] MEDS: Docusate 100 MG CAP PO SCH (09:18)
[2017-09-29] MEDS: Cefdinir 300 MG CAP PO SCH (09:18)
[2017-09-29] MEDS: HumaLOG 300 UNITS/3 ML VIAL SC PRN (11:58)
[2017-09-29] MEDS ORDERED: Furosemide 40 MG TAB PO SCH (13:45)
--- NOTE | 2017-09-29 13:45 | PRG ---
DATE OF SERVICE: 09/29/2017 SERVICE: Pulmonary Medicine. INTERVAL HISTORY: The patient is doing outstanding from a respiratory standpoint. She has been wean ed down to room air. She denies any current chest pain or shortness of breath. She is yet to be too terribly active and has not walked outside of her room. She has no significant cough or sputum prod uction other than some white phlegm from time to time. PHYSICAL EXAMINATION: VITAL SIGNS: Afebrile, pulse 75, blood pressure 147/73, respirations 18, saturation 98% on 2 liters nasal cannula. On room air, she is 93%. GENITOURINARY: Normocephalic, atraumatic. Sclerae are white, conjunctivae pink. Oral and nasal muc michael is moist without lesions. LUNGS: Decent air entry. There is a slightly prolonged expiratory phase. Wheezing is minimal. No crackles or rhonchi are appreciated. HEART: Normal rate and regular. ABDOMEN: Soft, nontender, and nondistended. Bowel sounds are positive premises. MUSCULOSKELETAL: No cyanosis or clubbing. No pitting in the bilateral lower extremities. NEUROLOGIC: Grossly nonfocal. LABORATORY DATA: Blood sugar ranges from 102-333. One out of two blood cultures is growing a possib le Streptococcus viridans. Respiratory virus panel is positive for rhinovirus. Blood culture is unr emarkable. ASSESSMENT: 1. Acute on chronic hypoxic and hypercapnic respiratory failure. 2. Chronic obstructive pulmonary disease with acute exacerbation secondary to rhinovirus. 3. Acute on chronic diastolic heart failure, returned to baseline. DISCUSSION AND PLAN: From a purely respiratory perspective, there is nothing keeping the patient in the hospital any longer. I am going to enlist her in a walking program. Taper the steroids over a p eriod of roughly 2 weeks. Pulmonary or Critical Care will continue to follow if she remains in the h ospital.
--- NOTE | 2017-09-29 14:47 | PDOC.PN ---
- Subjective Encounter Start Date: 09/29/17 Encounter Start Time: 14:45 Ms. Duarte was seen in follow-up. She says her breathing is about at baseline. She still has some significant dyspnea with exertion. - Objective Resuscitation Status: Resuscitation Status DNI:No Intubation MAR Reviewed: Yes Vital Signs & Weight: Vital Signs (12 hours) Temp Pulse Resp BP Pulse Ox 09/29/17 14:31 89 18 95 09/29/17 12:00 93 L 09/29/17 10:12 75 18 98 09/29/17 08:23 98.2 F 94 20 147/73 H 96 09/29/17 08:00 98.2 F 94 20 96 09/29/17 06:59 85 20 98 09/29/17 05:14 98.1 F 86 18 119/73 95 Weight Weight 140 lb 2 oz I&O: 09/28/17 09/29/17 09/30/17 06:59 06:59 06:59 Intake Total 820 850 Balance 820 850 Result Diagrams: 09/28/17 04:10 09/28/17 04:10 Additional Labs: Accuchecks 09/29/17 09/29/17 09/28/17 11:33 04:34 20:25 POC Glucose 222 H 102 127 H 09/28/17 09/27/17 16:33 12:06 POC Glucose 333 H 368 H Phys Exam - Physical Examination HEENT: PERRLA Respiratory: wheezing present, clear to auscultation bilateral Cardiovascular: RRR, no significant murmur Gastrointestinal: soft, non-tender, positive bowel sounds Musculoskeletal: no edema Dx/Plan (1) Acute and chronic respiratory failure with hypoxia Code(s): J96.21 - ACUTE AND CHRONIC RESPIRATORY FAILURE WITH HYPOXIA Status: Acute (2) Acute on chronic diastolic (congestive) heart failure Code(s): I50.33 - ACUTE ON CHRONIC DIASTOLIC (CONGESTIVE) HEART FAILURE Status : Acute (3) Acute bronchitis with chronic obstructive pulmonary disease (COPD) Code(s): J44.0 - CHRONIC OBSTRUCTIVE PULMON DISEASE W ACUTE LOWER RESP INFCT; J20.9 - ACUTE BRONCHITIS, UNSPECIFIED Status: Acute (4) DM2 (diabetes mellitus, type 2) Status: Acute - Plan * Acute on chronic Respiratory failure - improved * HTN- blood pressure is stable * DM- blood glucose is stable * She is stable for discharge home.
--- NOTE | 2017-09-29 21:27 | DIS ---
DATE OF ADMISSION: 09/24/2017 DATE OF DISCHARGE: 09/29/2017 PRIMARY CARE PHYSICIAN: Mila Otto M.D. DISCHARGE DISPOSITION: Home. DISCHARGE DIAGNOSES: 1. Acute on chronic respiratory failure secondary to chronic obstructive pulmonary disease exacerbat ion. 2. Chronic obstructive pulmonary disease exacerbation. 3. Hypertension. 4. Diabetes mellitus, type 2. 5. Dyslipidemia. DISCHARGE MEDICATIONS: Include prednisone taper over 2 weeks, also Omnicef 300 mg twice a day for 4 days, aspirin 81 mg daily, albuterol 2 puffs q.4 hours as needed, albuterol nebs q.6 hours as needed, vitamin B12 5000 mcg daily, glyburide 10 mg daily, lisinopril 2.5 mg daily, metformin 500 mg twice a day, simvastatin 40 mg daily and Anoro Ellipta 1 application inhaled daily. CODE STATUS: DO NOT INTUBATE. ALLERGIES: LATEX. HOSPITAL COURSE: Ms. Duarte is a pleasant 77-year-old female that has a history of chronic respirator y failure secondary to chronic obstructive pulmonary disease. She was in her usual state of health u ntil recently, she began getting more and more fatigued and more short of breath. She also developed a cough that was productive of yellowish sputum. She did not have any fevers; however, she was eval uated in the ER and found to have an exacerbation of her chronic obstructive pulmonary disease. She required CPAP in order to improve her oxygenation and was originally admitted to the [facility]. Her hospi faith course was complicated by reexacerbation of the chronic obstructive [facility], requiring her to be placed back in the IM after she had been transferred to the medical [facility] or. It was felt that it was likely due to a rapid steroid taper. At this time, her steroids will be tapered more slowly and over 2-week period in the outpatient basis and Dr. Becker is also recommend ing a nocturnal respirator as well. These arrangements have been made through case management and karen box is being discharged home to have close outpatient followup.
[2017-09-30] MEDS ORDERED: Furosemide 40 MG TAB PO SCH (07:30)
[2017-09-30] MEDS ORDERED: predniSONE 20 MG TAB PO SCH (08:00)
== END 2017-09-29 17:13 | disposition home health service (06) | DRG 189 ==
LOC: ERS 15:48 → IMCU/EMU 16:45 → T4-A 09-26 10:49 → IMCU/EMU 09-27 14:48 → T4-A 09-28 13:18
PROVIDERS: ADMIT Internal Medicine; ATTEND Internal Medicine
PROC: 5A09357 Assistance with Respiratory Ventilation, Less than 24 Consecutive Hours, Continuous Positive Airway Pressure (ICD-10-PCS; principal; 2017-09-24)
DX: J96.21 Acute and chronic respiratory failure with hypoxia (principal); I50.33 Acute on chronic diastolic (congestive) heart failure; J44.0 Chronic obstructive pulmonary disease with (acute) lower respiratory infection; J44.1 Chronic obstructive pulmonary disease with (acute) exacerbation; E11.9 Type 2 diabetes mellitus without complications; J96.22 Acute and chronic respiratory failure with hypercapnia; I11.0 Hypertensive heart disease with heart failure; E78.5 Hyperlipidemia, unspecified; F17.210 Nicotine dependence, cigarettes, uncomplicated; J20.9 Acute bronchitis, unspecified; B34.8 Other viral infections of unspecified site
CPT/HCPCS: 36415; 36416; 71045; 80048; 80053; 80069; 82553; 82805; 83605; 83735; 83880; 84484; 85025; 87040; 87149; 87633; 87798; 93005; 94640; 94660; 96365; A4216; J0696; J1650; J1956; J2920; J2930; J7506; J7611; J7620

== ENCOUNTER 2017-12-17 11:29 | Inpatient (IN) | payer MEDICARE, MEDICAID ==
[2017-12-17 12:04] LABS: #Eosinphils 0.2 thou/uL (0.0-0.7); #Lymphocytes 1.8 thou/uL (1.20-3.40); #Monocytes 0.6 thou/uL (0.11-0.59); #Neutrophils 4.8 thou/uL (1.40-6.50); %Basophils 0.4 % (0.0-1.0); %Lymphocytes 23.8 % (21.0-51.0); %Monocytes 7.6 % (0.0-10.0); %Neutrophils 65.1 % (42.0-75.0); Hemoglobin 13.4 g/dL (12.0-16.0); Mean Corpuscular HGB CONC 32.9 g/dL (32.0-36.0); Mean Corpuscular Hemoglobin 32.7 pg (27.0-31.0); Mean Corpuscular Volume 99.4 fl (81.0-99.0); Platelet Count 175 thou/uL (130-400); RBC Distribution Width 11.7 % (11.5-14.5); Red Blood Cell (RBC) Count 4.09 mill/uL (4.20-5.40); White Blood Cell (WBC) Count 7.4 thou/uL (4.8-10.8)
[2017-12-17 12:28] LABS: ALT (SGPT) 11 U/L (8-55); AST (SGOT) 9 U/L (5-34); Albumin 3.7 g/dL (3.4-4.8); Alkaline Phosphatase 116 U/L (40-150); Anion Gap 6 mmol/L (10-20); BUN (Urea Nitrogen) 24 mg/dL (9.8-20.1); Bilirubin, Total 0.2 mg/dL (0.2-1.2); CK (CPK) 99 U/L (29-168); Calc. Creatinine Clearance 0 mL/min (70-130); Calcium 9.1 mg/dL (7.8-10.44); Carbon Dioxide 32 mmol/L (23-31); Chloride 107 mmol/L (98-107); Estimated GFR-MDRD 63; Globulin 3.2 g/dL (2.4-3.5); Glucose 261 mg/dL (83-110); Potassium 4.1 mmol/L (3.5-5.1); Protein, Total 6.9 g/dL (6.0-8.3); Sodium 141 mmol/L (136-145)
[2017-12-17 12:32] LABS: Troponin I Less than 0.010 ng/mL (< 0.028)
--- NOTE | 2017-12-17 13:52 | RAD ---
PORTABLE UPRIGHT FRONTAL CHEST RADIOGRAPH: Date: 12-17-17 Comparison: 09-24-17 History: Intermittent chest pain. FINDINGS: Heart and mediastinal contours are stable. There is atherosclerotic calcification in the aortic arch. There is no pneumothorax, pleural fluid, lobar consolidation, or alveolar edema. There is diffuse in creased linear interstitial density with pulmonary hyperinflation. Question history of COPD. IMPRESSION: Interstitial prominence and pulmonary vascular congestion as above. No lobar consolidation or alveola r edema. POS: ANISA
[2017-12-17 16:38] LABS: Troponin I Less than 0.010 ng/mL (< 0.028)
[2017-12-17] MEDS ORDERED: Albuterol Sulfate 2.5 mg/3 ml Neb NEB PRN (16:59)
[2017-12-17] MEDS ORDERED: Dextrose 50% Abboject 50 ML SYRINGE SLOW IVP PRN (17:06)
[2017-12-17] MEDS ORDERED: Ondansetron ODT 4 MG TAB PO PRN (17:06)
[2017-12-17] MEDS ORDERED: Dextrose 5% in Water 1,000 ML IV PRN (17:06)
[2017-12-17] MEDS ORDERED: Guaifenesin DM 100-10/5 ML UDCUP PO PRN (17:06)
[2017-12-17] MEDS ORDERED: Nitroglycerin 0.4 MG TAB (25 Tab Bottle) PO PRN (17:06)
[2017-12-17] MEDS ORDERED: Mag-Al 1200 mg/1200 mg/30 ML UDCUP PO PRN (17:06)
[2017-12-17] MEDS ORDERED: HYDROcodone/Acetaminophen 5/325 mg Tablet PO PRN (17:06)
[2017-12-17] MEDS ORDERED: HumaLOG 300 UNITS/3 ML VIAL SC PRN (17:06)
[2017-12-17] MEDS ORDERED: Acetaminophen 325 MG TAB PO PRN (17:06)
[2017-12-17 17:32] VITALS: BMI 29.7
--- NOTE | 2017-12-17 17:35 | HP ---
DATE OF ADMISSION: 12/17/2017 CHIEF COMPLAINT: Shortness of breath and chest pain. HISTORY OF PRESENT ILLNESS: This is a 77-year-old -[place] female with a known history of [place] PD, type 2 diabetes mellitus, and history of known smoker, quit smoking last September. She was going to therapy sessions after recent hospitalization and she was noted to have chest pain whenever she do es bicycling at therapy center and she noticed this chest pain, which she used to go away when she ta kes nice deep breaths. Pain was located to the left precordium and the pain was more of a pressure-l hadley pain and is more of a constant pain. Denied having any chest pain in the past. No nausea and no vomiting. She did not have any recent stress test. She denied having any cough or any sputum produ ction. No history of any recent fever. PAST MEDICAL HISTORY: 1. COPD. 2. Hypertension. 3. Type 2 diabetes mellitus. 4. Dyslipidemia. PAST SURGICAL HISTORY: None. SOCIAL HISTORY: The patient is a smoker, but she quit smoking in September. No history of alcohol, no history of illicit drug use. FAMILY HISTORY: No significant family history of coronary artery disease, but they do have a history of COPD. ALLERGIES: LATEX. HOME MEDICATIONS: 1. Albuterol nebulizer treatments 2.5 mg q.6 hours. 2. Aspirin 81 mg p.o. daily. 3. Cefdinir. 4. Glyburide 10 mg p.o. daily. 5. Lisinopril 2.5 mg p.o. daily. 6. Metformin. 7. Prednisolone 10 mg p.o. daily. 8. Simvastatin 40 mg p.o. daily. 9. Umeclidinium vilanterol Ellipta. REVIEW OF SYSTEMS: All 12 systems are reviewed with the patient thoroughly and found to be negative at this time. Systems reviewed are HEENT, CVS and SILK SCREEN ETCHER. The following complete review of systems was negative, unless otherwise mentioned in the HPI or below: Constitutional: Weight loss or gain, sense of well-being, ability to conduct usual activities, exerc ise tolerance. Skin/Breast: Rash, itching, changes in hair growth or loss, nail changes, breast lumps, tenderness, swelling, nipple discharge. Eyes: Vision, double vision, tearing, blind spots, pain. ENT/Mouth: Headaches (location, time of onset, duration, precipitating factors), vertigo, lightheade dness, injury. Vision, double vision, tearing, blind spots, pain, nose bleeding, colds, obstruction, discharge, dental difficulties, gingival bleeding, dentures, neck stiffness, pain, tenderness, masses in thyroid or other areas Cardiovascular: Precordial pain, substernal distress, palpitations, syncope, dyspnea on exertion, or thopnea, nocturnal paroxysmal dyspnea, edema, cyanosis, hypertension, heart murmurs, varicosities, ph lebitis, claudication. Respiratory: Pain, shortness of breath, wheezing, stridor, cough, hemoptysis, fever or night sweats Gastrointestinal: Poor appetite, dysphagia, indigestion, abdominal pain, heartburn, eructation, naus ea, vomiting, hematemesis, jaundice, constipation, or diarrhea, abnormal stools (ninoska-colored, tarry, bloody, greasy, foul smelling), flatulence, hemorrhoids, recent changes in bowel habits. Genitourinary: Urgency, frequency, dysuria, nocturia, hematuria, polyuria, oliguria, unusual (or allison nge in) color of urine, stones, hesitancy, change in size of stream, dribbling, acute retention or in continence, libido, potency. Musculoskeletal: Pain, swelling, redness or heat of muscles or joints, limitation, of motion, muscul ar weakness, atrophy, cramps. Neurologic/Psychiatric: Convulsions, paralyses, tremor, incoordination, paraesthesias, difficulties with memory of speech, sensory or motor disturbances, or muscular coordination (ataxia, tremor), emot ional problems, anxiety, depression, previous psychiatric care, unusual perceptions, hallucinations. Allergy/Immunologic: Skin rash, anemia, bleeding tendency, polydipsia, polyuria, intolerance to heat or cold. PHYSICAL EXAMINATION: VITAL SIGNS: Blood pressure is 140/78, respiratory rate is 18, saturation is 98% on room air on 3 li ters. GENERAL: The patient is seen sitting in the bed. Does not appear to be in acute distress at this ti me. She is alert and oriented. HEENT: Atraumatic, normocephalic. PERRLA. Extraocular movements were intact. CARDIOVASCULAR: S1, S2 normal. No murmurs, rubs or gallops. LUNGS: Bilateral air entry was equal. No wheezing, no crackles. ABDOMEN: Soft and nontender. No guarding, no rebound tenderness. Bowel sounds normal. MUSCULOSKELETAL: No calf tenderness. No pedal edema. No joint tenderness, no joint swelling. SKIN: No cyanosis, no erythema, no rash, no pallor. NEUROLOGIC: Cranial examination II-XII intact. No focal deficits were noted. PSYCHIATRIC: No signs of suicidal ideation. No signs of jac were noted. NECK: No JVD. No thyromegaly was noted. LABORATORY DATA AND IMAGING DATA: 1. WBC 7.4, hemoglobin 13.4, hematocrit is 40.7, platelets are 175. Sodium is 141, potassium 4.1, c hloride is 107, BUN is 24, creatinine is 1.04, blood sugar is 261. 2. EKG was seen, it did not show any evidence of ST segment elevations. 3. Chest x-ray was done showing an evidence of prominence pulmonary vascular congestion, otherwise n o lobar consolidation or alveolar edema was noted. 4. Acute chest pain, rule out myocardial infarction. 5. Chronic obstructive pulmonary disease. No evidence of exacerbation. 6. Type 2 diabetes mellitus, poorly controlled. 7. Hypertension, well controlled. 8. Hyperlipidemia. PLAN: 1. Plan is to closely monitor this patient overnight with serial troponins every 6 hours. We will p itz for nuclear stress test in the morning. If the patient has elevated troponins, we will plan to c ancel the stress test and consult Cardiology at that time. The patient is high risk for coronary art myrna disease secondary to chronic smoking, COPD and type 2 diabetes mellitus. 2. We will continue the patient on aspirin and we will start the patient on beta-blockers 3.125 mg p .o. b.i.d. 3. Patient has type 2 diabetes mellitus, poorly controlled. We will start the patient on sliding sc abner insulin and restart the home medication. Plan to increase home medications at this time. We david l do hemoglobin A1C. 4. The patient's blood pressure is well controlled. We will restart the patient's home medications. 5. History of chronic obstructive pulmonary disease. We will restart the patient's home medications . The patient has no evidence of any COPD exacerbation. Lungs sound pretty clear at this time. 6. We will do BNP to look for any evidence of congestive heart failure. If the BNP is elevated, we will plan to do a 2D echo in the morning. 7. DVT prophylaxis, Lovenox 40 mg subcu. I spent 75 minutes of this patient.
[2017-12-17] MEDS: HumaLOG 300 UNITS/3 ML VIAL SC PRN (18:13)
[2017-12-17] MEDS ORDERED: Aspirin 325 MG TAB PO SCH (18:30)
[2017-12-17 18:55] LABS: Troponin I Less than 0.010 ng/mL (< 0.028)
[2017-12-17] MEDS: Famotidine 20 MG TAB PO SCH (20:28)
[2017-12-17] MEDS: Docusate 100 MG CAP PO SCH (20:29)
[2017-12-17] MEDS: Atorvastatin Calcium 20 MG TAB PO SCH (20:29)
[2017-12-17] MEDS: Carvedilol 3.125 MG TAB PO SCH (20:29)
[2017-12-18 05:04] LABS: #Eosinphils 0.3 thou/uL (0.0-0.7); #Lymphocytes 1.6 thou/uL (1.20-3.40); #Monocytes 0.7 thou/uL (0.11-0.59); %Basophils 0.2 % (0.0-1.0); %Eosinophils 5.3 % (0.0-10.0); %Lymphocytes 29.5 % (21.0-51.0); %Monocytes 11.8 % (0.0-10.0); %Neutrophils 53.3 % (42.0-75.0); Hemoglobin 11.4 g/dL (12.0-16.0); Mean Corpuscular HGB CONC 31.9 g/dL (32.0-36.0); Mean Corpuscular Hemoglobin 31.8 pg (27.0-31.0); Mean Corpuscular Volume 99.7 fl (81.0-99.0); Mean Platelet Volume 8.7 fL (7.4-10.4); Platelet Count 164 thou/uL (130-400); RBC Distribution Width 11.7 % (11.5-14.5); Red Blood Cell (RBC) Count 3.58 mill/uL (4.20-5.40); White Blood Cell (WBC) Count 5.6 thou/uL (4.8-10.8)
[2017-12-18 05:16] LABS: Anion Gap 10 mmol/L (10-20); BUN (Urea Nitrogen) 23 mg/dL (9.8-20.1); Calc. Creatinine Clearance 56 mL/min (70-130); Calcium 8.4 mg/dL (7.8-10.44); Carbon Dioxide 25 mmol/L (23-31); Cardiac Risk 3.9 (Less than 4.5); Chloride 111 mmol/L (98-107); Cholesterol 170 mg/dl (< 200 Desired); Estimated GFR-MDRD 72; Glucose 113 mg/dL (83-110); HDL Cholesterol 44 mg/dL (>60 Neg Risk); LDL Cholesterol, Calculated 114 mg/dL; Potassium 3.9 mmol/L (3.5-5.1); Sodium 142 mmol/L (136-145); Triglycerides 61 mg/dL (Less than 150)
[2017-12-18] MEDS ORDERED: UMECLIDINIUM INH SCH (07:00)
[2017-12-18] MEDS ORDERED: VILANTEROL INH SCH (07:00)
[2017-12-18] MEDS: predniSONE 20 MG TAB PO SCH (08:39)
[2017-12-18] MEDS: Docusate 100 MG CAP PO SCH ×3 (08:40→20:47)
[2017-12-18] MEDS: Lisinopril 2.5 MG TAB PO SCH (08:40)
[2017-12-18] MEDS: Aspirin 325 MG TAB PO SCH (08:40)
[2017-12-18] MEDS: Famotidine 20 MG TAB PO SCH ×2 (08:41→20:47)
[2017-12-18] MEDS ORDERED: Enoxaparin Sodium 40 MG/0.4 ML SYRINGE SC SCH (09:00)
[2017-12-18] MEDS ORDERED: Regadenoson 0.4 MG/5 ML SYRINGE ONE (10:12)
[2017-12-18] MEDS ORDERED: ISOVUE-370 76%-LOCM 1 ML ONE (11:38)
[2017-12-18] MEDS: glyBURIDE 5 MG TAB PO SCH (12:01)
[2017-12-18] MEDS: Carvedilol 3.125 MG TAB PO SCH ×2 (12:01→20:47)
--- NOTE | 2017-12-18 13:40 | NM ---
CARDIAC SPECT WITH EJECTION FRACTION AND WALL MOTION: Date: 12/18/17 HISTORY: 77-year-old female with history of chest pain, COPD, hypertension, diabetes mellitus, dyslipidemia, a nd smoking history. TECHNIQUE: Lexiscan sestamibi study. Patient was injected with 33 mCi technetium-99m sestamibi intravenously for stress images and patient was injected with 9.0 mCi technetium-99m sestamibi intravenously for rest ing images. FINDINGS: Multiple SPECT images in the short axis, vertical long axis, and horizontal long axis demonstrate no scan evidence for infarct or ischemia. TID: 1.087 LHR: 0.45 EDV: 59 mL EF: 78% MYOCARDIAL PERFUSION WALL MOTION: Wall motion is normal. IMPRESSION: Unremarkable cardiac SPECT with ejection fraction and wall motion. No scan evidence for infarct or is chemia. POS: ALEA
--- NOTE | 2017-12-18 16:33 | PDOC.PN ---
- Subjective Encounter Start Date: 12/18/17 Encounter Start Time: 15:00 Patient is seen today, alert and oriented. she continuos to have chest pain. - Objective Resuscitation Status: Resuscitation Status FULL:Full Resuscitation MAR Reviewed: Yes Vital Signs & Weight: Vital Signs (12 hours) Temp Pulse Resp BP Pulse Ox 12/18/17 15:26 98.2 F 97 18 135/65 90 L 12/18/17 12:00 97.4 F L 84 18 177/73 H 94 L 12/18/17 08:00 98.0 F 74 18 12/18/17 07:42 98.0 F 74 18 141/61 H 92 L I&O: 12/17/17 12/18/17 12/19/17 06:59 06:59 06:59 Intake Total 585 Balance 585 Result Diagrams: 12/18/17 04:30 12/18/17 04:30 Additional Labs: Accuchecks 12/18/17 12/18/17 12/17/17 11:58 04:59 20:19 POC Glucose 201 H 91 199 H 12/17/17 17:41 POC Glucose 196 H Radiology Reviewed by me: Yes Phys Exam - Physical Examination HEENT: PERRLA, moist MMs Neck: no nodes, no JVD Respiratory: no wheezing, no rales Cardiovascular: RRR, no significant murmur Gastrointestinal: non-tender Musculoskeletal: no edema, pulses present Neurological: non-focal, normal sensation Lymphatic: no nodes Psychiatric: normal affect, A&O x 3 Skin: no rash, normal turgor Dx/Plan (1) Pulmonary embolism Code(s): I26.99 - OTHER PULMONARY EMBOLISM WITHOUT ACUTE COR PULMONALE Status : Acute Qualifiers: Chronicity: acute Comment: CTA showed PE, the reasons for her chest pain. will start on Lovenox 1 mg /kg BID, will order Echo. (2) Acute chest pain Code(s): R07.9 - CHEST PAIN, UNSPECIFIED Status: Acute Comment: Stress test negative for [place]. (3) Acute and chronic respiratory failure with hypoxia Code(s): J96.21 - ACUTE AND CHRONIC RESPIRATORY FAILURE WITH HYPOXIA Status: Acute Comment: Continuos to be on Oxygen, will cotninue to monitor,. (4) DM2 (diabetes mellitus, type 2) Status: Acute Comment: Well controlled with SSI. Hold Metorfmin (5) HLD (hyperlipidemia) Code(s): E78.5 - HYPERLIPIDEMIA, UNSPECIFIED Status: Acute Comment: Will cotniue with Home Medications. - Plan cont current plan of care, PT/OT, social welfare clerk, respiratory therapy, incentive spirometry, DVT proph w/lovenox * . - Discharge Day Encounter end time: 15:35 Review of Systems - Review of Systems Eyes: negative: Pain, Vision Change, Conjunctivae Inflammation, Eyelid Inflammation, Redness, Other ENT: negative: Ear Pain, Ear Discharge, Nose Pain, Nose Discharge, Nose Congestion, Mouth Pain, Mouth Swelling, Throat Pain, Throat Swelling, Other Respiratory: negative: Cough, Dry, Shortness of Breath, Hemoptysis, SOB with Excertion, Pleuritic Pain, Sputum, Wheezing Cardiovascular: chest pain. negative: palpitations, orthopnea, paroxysmal nocturnal dyspnea, edema, light headedness, other Gastrointestinal: negative: Nausea, Vomiting, Abdominal Pain, Diarrhea, Constipation, Melena, Hematochezia, Other Musculoskeletal: negative: Neck Pain, Shoulder Pain, Arm Pain, Back Pain, Hand Pain, Leg Pain, Foot Pain, Other Skin: negative: Rash, Lesions, Ankur, Bruising, Other - Medications/Allergies Allergies/Adverse Reactions: Allergies Allergy/AdvReac Type Severity Reaction Status Date / Time latex Allergy Verified 09/24/17 17:54 Medications: Current Medications Acetaminophen (Tylenol) 650 mg PO Q4H PRN PRN Reason: Headache/Fever or Pain Hydrocodone Bitart/Acetaminophen ([place] 5/325) 1 tab PO Q4H PRN PRN Reason: Moderate Pain (4-6) Al Hydroxide/Mg Hydroxide (Maalox) 30 ml PO Q6H PRN PRN Reason: Heartburn or Indigestion Albuterol Sulfate (Ventolin) 2.5 mg NEB Q6H PRN PRN Reason: Dyspnea Albuterol/Ipratropium (Duoneb) 3 ml NEB [id number] [facility] Aspirin (Aspirin) 325 mg PO DAILY [facility] Last Admin: 12/18/17 08:40 Dose: 325 mg Atorvastatin Calcium (Lipitor) 20 mg PO HS [facility] Last Admin: 12/17/17 20:29 Dose: 20 mg Carvedilol (Coreg) 3.125 mg PO BID [facility] Last Admin: 12/18/17 12:01 Dose: 3.125 mg Dextrose/Water (Dextrose 50%) 25 gm SLOW IVP PRN PRN PRN Reason: Hypoglycemia Docusate Sodium (Colace) 100 mg PO BID [facility] Last Admin: 12/18/17 08:43 Dose: Not Given Enoxaparin Sodium (Lovenox) 70 mg SC 0900,2100 [facility] Famotidine (Pepcid) 20 mg PO BID [facility] Last Admin: 12/18/17 08:41 Dose: 20 mg Glucagon (Glucagon) 1 mg IM PRN PRN PRN Reason: Hypoglycemia Glyburide (Diabeta) 10 mg PO QAM-[facility] Last Admin: 12/18/17 12:01 Dose: 10 mg Guaifenesin/Dextromethorphan (Robitussin Dm) 15 ml PO Q4H PRN PRN Reason: Cough Dextrose/Water (D5w) 1,000 mls @ 0 mls/hr IV .Q0M PRN; As Directed PRN Reason: Hypoglycemia Insulin Human Lispro (Humalog) 0 units SC .MODERATE SLIDING SC PRN PRN Reason: Moderate Correctional Scale Last Admin: 12/17/17 18:13 Dose: 2 unit Insulin Human Lispro (Humalog) 0 units SC .BEDTIME SLIDING SC PRN PRN Reason: Bedtime Correctional Scale Lisinopril (Zestril) 2.5 mg PO DAILY [facility] Last Admin: 12/18/17 08:40 Dose: 2.5 mg Nitroglycerin (Nitrostat) 0.4 mg PO Q5MIN PRN PRN Reason: Chest Pain Ondansetron HCl (Zofran Odt) 4 mg PO Q6H PRN PRN Reason: Nausea/Vomiting Prednisone (Prednisone) 40 mg PO QAM-[facility] Stop: 12/21/17 08:01 Last Admin: 12/18/17 08:39 Dose: 40 mg Prednisone (Prednisone) 30 mg PO QAM-[facility] Stop: 12/25/17 08:01 Prednisone (Prednisone) 20 mg PO QAM-[facility] Stop: 12/29/17 08:01 Prednisone (Prednisone) 10 mg PO QAM-WM [facility] Stop: 01/02/18 08:01
[2017-12-18] MEDS: HumaLOG 300 UNITS/3 ML VIAL SC PRN (17:38)
[2017-12-18] MEDS: Enoxaparin Sodium 80 MG/0.8 ML SYRINGE SC SCH (20:46)
[2017-12-18] MEDS: Atorvastatin Calcium 20 MG TAB PO SCH (20:47)
--- NOTE | 2017-12-19 07:23 | CT ---
CT ANGIOGRAM CHEST WITH 3D RENDERING: HISTORY: A 77-year-old female with a history of chest pain and shortness of breath. FINDINGS: There are scattered bilateral small bullous emphysema changes throughout right and left lungs. There appear to be some linear and interstitial chronic lung changes bilaterally. There is motion artifac t which results in image degradation, particularly in the more distal branches, particularly in the l ower lung zones. There is evidence of definite intraluminal thrombus involving several left upper lo be pulmonary artery branches. In addition, there is a probable intraluminal filling defect in one of the right lower lobe pulmonary artery branches as well as a small right upper lobe pulmonary branch. No evidence for pleural effusion or pericardial effusion. Old granulomatous disease. Three-vessel coronary artery calcific disease. IMPRESSION: Evidence for bilateral pulmonary embolus including several left upper lobe branches, right upper lobe branch, and probable right lower lobe branch. Exam is limited because of motion artifact and bolus contrast density, particularly in the lower lung zones. Bilateral emphysema changes and chronic-appe aring interstitial lung disease. The findings were discussed with Dr. Gonzalez at 4:10 p.m. CODE CR POS: [facility]
[2017-12-19] MEDS: Carvedilol 3.125 MG TAB PO SCH ×2 (09:24→20:38)
[2017-12-19] MEDS: glyBURIDE 5 MG TAB PO SCH (09:24)
[2017-12-19] MEDS: Famotidine 20 MG TAB PO SCH ×2 (09:25→20:38)
[2017-12-19] MEDS: Aspirin 325 MG TAB PO SCH (09:25)
[2017-12-19] MEDS: Lisinopril 2.5 MG TAB PO SCH (09:25)
[2017-12-19] MEDS: Docusate 100 MG CAP PO SCH ×2 (09:25→20:38)
[2017-12-19] MEDS: predniSONE 20 MG TAB PO SCH (09:25)
[2017-12-19] MEDS: Enoxaparin Sodium 80 MG/0.8 ML SYRINGE SC SCH ×2 (09:26→20:39)
[2017-12-19] MEDS: HumaLOG 300 UNITS/3 ML VIAL SC PRN ×2 (15:38→18:47)
--- NOTE | 2017-12-19 16:53 | PDOC.PN ---
- Subjective Encounter Start Date: 12/19/17 Encounter Start Time: 16:00 Patint is seen today, alert and oriented. She is hypoxic at 86 % on RA, Recommeding Home oxygen continuos along with Portable oxygen. Pt has knonw H/o COPD and also has new Bilateral PE. - Objective MAR Reviewed: Yes Vital Signs & Weight: Vital Signs (12 hours) Temp Pulse Resp BP BP Pulse Ox 12/19/17 16:31 97.3 F L 86 18 180/84 H 94 L 12/19/17 13:45 90 16 12/19/17 12:00 97.6 F 73 16 145/67 H 100 12/19/17 09:30 98.3 F 90 18 95 12/19/17 09:25 90 144/69 H 12/19/17 06:46 90 16 Result Diagrams: 12/18/17 04:30 12/18/17 04:30 Additional Labs: Accuchecks 12/19/17 12/19/17 12/19/17 16:25 15:24 11:16 POC Glucose 400 H 386 H 268 H 12/19/17 12/18/17 12/18/17 06:01 21:01 16:36 POC Glucose 75 227 H 385 H Radiology Reviewed by me: Yes EKG Reviewed by me: Yes Phys Exam - Physical Examination HEENT: PERRLA, moist MMs Neck: no nodes, no JVD Respiratory: wheezing present Cardiovascular: RRR, no significant murmur Gastrointestinal: soft, non-tender Musculoskeletal: no edema, pulses present Neurological: non-focal, normal sensation Lymphatic: no nodes Psychiatric: normal affect, A&O x 3 Dx/Plan (1) Pulmonary embolism Code(s): I26.99 - OTHER PULMONARY EMBOLISM WITHOUT ACUTE COR PULMONALE Status : Acute Qualifiers: Chronicity: acute Comment: CTA showed PE, the reasons for her chest pain. will start on Lovenox 1 mg /kg BID, Pt will be on Eliquis at Home along with Home oxygen. (2) Acute chest pain Code(s): R07.9 - CHEST PAIN, UNSPECIFIED Status: Acute Comment: Stress test negative for [place]. (3) Acute and chronic respiratory failure with hypoxia Code(s): J96.21 - ACUTE AND CHRONIC RESPIRATORY FAILURE WITH HYPOXIA Status: Acute Comment: Continuos to be on Oxygen,Will Need Home oxugen setup today, knonw h/o COPD and Now PE. (4) DM2 (diabetes mellitus, type 2) Status: Acute Comment: Poorly controlled with SSI. pt BG is 400 now, Will increase lkevemir to 20 untis now, And check Hb aic. (5) HLD (hyperlipidemia) Code(s): E78.5 - HYPERLIPIDEMIA, UNSPECIFIED Status: Acute Comment: Will cotniue with Home Medications. (6) Pulmonary embolism Code(s): I26.99 - OTHER PULMONARY EMBOLISM WITHOUT ACUTE COR PULMONALE Status : Acute - Plan cont current plan of care, continue antibiotics, PT/OT, respiratory therapy, incentive spirometry, DVT proph w/lovenox * . - Discharge Day Encounter end time: 16:35 Review of Systems - Review of Systems Eyes: negative: Pain, Vision Change, Conjunctivae Inflammation, Eyelid Inflammation, Redness, Other ENT: negative: Ear Pain, Ear Discharge, Nose Pain, Nose Discharge, Nose Congestion, Mouth Pain, Mouth Swelling, Throat Pain, Throat Swelling, Other Respiratory: Shortness of Breath, Wheezing. negative: Cough, Dry, Hemoptysis, SOB with Excertion, Pleuritic Pain, Sputum Gastrointestinal: negative: Nausea, Vomiting, Abdominal Pain, Diarrhea, Constipation, Melena, Hematochezia, Other Genitourinary: negative: Dysuria, Frequency, Incontinence, Hematuria, Retention , Other Musculoskeletal: negative: Neck Pain, Shoulder Pain, Arm Pain, Back Pain, Hand Pain, Leg Pain, Foot Pain, Other - Medications/Allergies Allergies/Adverse Reactions: Allergies Allergy/AdvReac Type Severity Reaction Status Date / Time latex Allergy Verified 09/24/17 17:54 Medications: Current Medications Acetaminophen (Tylenol) 650 mg PO Q4H PRN PRN Reason: Headache/Fever or Pain Hydrocodone Bitart/Acetaminophen ([place] 5/325) 1 tab PO Q4H PRN PRN Reason: Moderate Pain (4-6) Al Hydroxide/Mg Hydroxide (Maalox) 30 ml PO Q6H PRN PRN Reason: Heartburn or Indigestion Albuterol Sulfate (Ventolin) 2.5 mg NEB Q6H PRN PRN Reason: Dyspnea Albuterol/Ipratropium (Duoneb) 3 ml NEB [id number] Last Admin: 12/19/17 13:45 Dose: 3 ml Aspirin (Aspirin) 325 mg PO DAILY [facility] Last Admin: 12/19/17 09:25 Dose: 325 mg Atorvastatin Calcium (Lipitor) 20 mg PO HS [facility] Last Admin: 12/18/17 20:47 Dose: 20 mg Carvedilol (Coreg) 3.125 mg PO BID [facility] Last Admin: 12/19/17 09:24 Dose: 3.125 mg Dextrose/Water (Dextrose 50%) 25 gm SLOW IVP PRN PRN PRN Reason: Hypoglycemia Docusate Sodium (Colace) 100 mg PO BID [facility] Last Admin: 12/19/17 09:25 Dose: Not Given Enoxaparin Sodium (Lovenox) 70 mg SC 0900,2100 [facility] Last Admin: 12/19/17 09:26 Dose: 70 mg Famotidine (Pepcid) 20 mg PO BID [facility] Last Admin: 12/19/17 09:25 Dose: 20 mg Glucagon (Glucagon) 1 mg IM PRN PRN PRN Reason: Hypoglycemia Glyburide (Diabeta) 10 mg PO [facility] Last Admin: 12/19/17 09:24 Dose: 10 mg Guaifenesin/Dextromethorphan (Robitussin Dm) 15 ml PO Q4H PRN PRN Reason: Cough Dextrose/Water (D5w) 1,000 mls @ 0 mls/hr IV .Q0M PRN; As Directed PRN Reason: Hypoglycemia Insulin Human Lispro (Humalog) 0 units SC .MODERATE SLIDING SC PRN PRN Reason: Moderate Correctional Scale Last Admin: 12/19/17 15:38 Dose: 10 unit Insulin Human Lispro (Humalog) 0 units SC .BEDTIME SLIDING SC PRN PRN Reason: Bedtime Correctional Scale Lisinopril (Zestril) 2.5 mg PO DAILY [facility] Last Admin: 12/19/17 09:25 Dose: 2.5 mg Nitroglycerin (Nitrostat) 0.4 mg PO Q5MIN PRN PRN Reason: Chest Pain Ondansetron HCl (Zofran Odt) 4 mg PO Q6H PRN PRN Reason: Nausea/Vomiting Prednisone (Prednisone) 40 mg PO [facility] Stop: 12/21/17 08:01 Last Admin: 12/19/17 09:25 Dose: 40 mg Prednisone (Prednisone) 30 mg PO QAM-[facility] Stop: 12/25/17 08:01 Prednisone (Prednisone) 20 mg PO QAM-WM [facility] Stop: 12/29/17 08:01 Prednisone (Prednisone) 10 mg PO QAM-WM [facility] Stop: 01/02/18 08:01
[2017-12-19] MEDS ORDERED: Insulin Detemir 100 UNITS/ML 20 UNITS in Pre-Filled Syringe 1 EACH SC SCH (18:00)
[2017-12-19 18:29] LABS: Hemoglobin A1c 7.8 % (4.0-6.0)
[2017-12-19] MEDS: Atorvastatin Calcium 20 MG TAB PO SCH (20:38)
[2017-12-20] MEDS: predniSONE 20 MG TAB PO SCH (08:15)
[2017-12-20] MEDS: glyBURIDE 5 MG TAB PO SCH (08:15)
[2017-12-20] MEDS: Docusate 100 MG CAP PO SCH (08:16)
[2017-12-20] MEDS: Carvedilol 3.125 MG TAB PO SCH (08:16)
[2017-12-20] MEDS: Aspirin 325 MG TAB PO SCH (08:16)
[2017-12-20] MEDS: Enoxaparin Sodium 80 MG/0.8 ML SYRINGE SC SCH (08:17)
[2017-12-20] MEDS: Lisinopril 2.5 MG TAB PO SCH (08:18)
[2017-12-20] MEDS: Famotidine 20 MG TAB PO SCH (08:18)
[2017-12-20] MEDS: HumaLOG 300 UNITS/3 ML VIAL SC PRN (11:21)
[2017-12-20 11:25] VITALS: BP 152/70; TEMP 98.1
--- NOTE | 2017-12-20 14:05 | DIS ---
DATE OF ADMISSION: 12/17/2017 DATE OF DISCHARGE: 12/20/2017 ADMITTING DIAGNOSIS: Acute chest pain. DISCHARGE DIAGNOSIS: Acute bilateral pulmonary embolism causing chest pain. SECONDARY DIAGNOSES: 1. Chronic obstructive pulmonary disease. 2. Acute hypoxic and acute on chronic hypoxic respiratory failure. 3. Type 2 diabetes mellitus, hyperglycemia. 4. Dyslipidemia. 5. Hypertension. HISTORY OF PRESENT ILLNESS AND HOSPITAL COURSE: In brief, this is a 77-year-old white female with a known history of COPD; type 2 diabetes mellitus with known history of smoking, quit recently. The pa tient complaining of chest pain on and off, this was aggravated on exercise, but getting better on de ep breathing. There is a suspicion for a cardiac disease, the patient went through a cardiac stress test, which came back unremarkable. The chest pain was very convincing with a high suspicion, I orde red a CTA, which did show an evidence of bilateral pulmonary embolism involving multiple pulmonary ar teries. The patient was started on levofloxacin initially and then changed to Eliquis. The patient was persistently short of breath and was needing continuous oxygenation to keep her saturations more than 86%. So, I requested the geriatric case manager to file for a home oxygen therapy, which would benefit t he patient. The patient is on oxygen only, she takes at night. She does not have any portable oxyge n and because of this new development of the PE and is under chronic COPD, the patient would benefit from continuous oxygen on 2 liters nasal cannula. The patient is discharged home in stable condition after arranging portable oxygen. PHYSICAL EXAMINATION: On date of discharge: VITAL SIGNS: Blood pressures are 152/70, heart rate is 77, respirations 15, saturation 94% on 2 lite rs. GENERAL: The patient is moderately built and moderately nourished, does not appear in any acute dist ress at this time, alert and oriented x3. HEENT: Atraumatic, normocephalic. PERRLA. Extraocular movements were intact. Oral mucosa is pink and moist. CARDIOVASCULAR: S1, S2 normal. No murmurs, rubs or gallops. LUNGS: Bilateral air entry was equal. No wheezing, no crackles. ABDOMEN: Soft, nontender. No guarding, no rebound tenderness. Bowel sounds normal. MUSCULOSKELETAL: No calf tenderness. No pedal edema. No joint tenderness, no joint swelling. SKIN: No cyanosis, no erythema, no rash, no pallor. NEUROLOGIC: Cranial examination II-XII intact. No focal deficits were noted. DISCHARGE MEDICATIONS: Insulin [id number] units subcutaneously daily, metformin 500 mg p.o. b.i.d., albuterol inhalation b.i.d., aspirin 81 mg p.o. daily, glyburide 10 mg p.o. daily, lisinopril 10 mg p .o. daily, simvastatin 40 mg p.o. daily. Eliquis 10 mg p.o. b.i.d., continue for 7 more days and changed to 5 mg p.o. b.i.d. after that. DISCHARGE INSTRUCTIONS: Continue activity as tolerated. Advised to follow up with primary care phys ician in 1-2 weeks. Advised to continue on the nasal cannula continuous oxygen. Advised to return back to the ER for any persistent chest pains or worsening shortness of breath. DIET: Continue with the diabetic diet. The patient is on steroids, so her sugars are kind of high a t discharge. I explained the patient to return to the ER if the patient's sugars are higher than 400 . I spent 35 minutes with this patient on the day of discharge.
[2017-12-22] MEDS ORDERED: predniSONE 20 MG TAB PO SCH (08:00)
[2017-12-26] MEDS ORDERED: predniSONE 20 MG TAB PO SCH (08:00)
[2017-12-30] MEDS ORDERED: predniSONE 5 MG TAB PO SCH (08:00)
== END 2017-12-20 13:17 | disposition home or self-care (01) | DRG 175 ==
LOC: ERS 11:29 → 2SW 17:03 → OBSVTOIN 12-18 16:13 → 2NO 12-18 20:23
PROVIDERS: ADMIT Family Medicine; ATTEND Family Medicine
DX: I26.99 Other pulmonary embolism without acute cor pulmonale (principal); J96.21 Acute and chronic respiratory failure with hypoxia; E11.65 Type 2 diabetes mellitus with hyperglycemia; J44.9 Chronic obstructive pulmonary disease, unspecified; E78.5 Hyperlipidemia, unspecified; I10 Essential (primary) hypertension; Z99.81 Dependence on supplemental oxygen; Z87.891 Personal history of nicotine dependence; Z91.040 Latex allergy status; Z79.51 Long term (current) use of inhaled steroids; Z79.52 Long term (current) use of systemic steroids; Z79.84 Long term (current) use of oral hypoglycemic drugs
CPT/HCPCS: 36415; 36416; 71045; 71275; 78452; 80048; 80053; 80061; 82550; 82553; 83036; 83880; 84484; 85025; 93005; 93017; 93306; 94640; 94760; A9500; J1650; J1815; J2785; J7506; J7620; Q0162

== ENCOUNTER 2018-01-21 11:09 | Outpatient (CLI) | payer MEDICARE, MEDICAID | END 2018-01-21 11:10 | disposition home or self-care (01) | LOC: BICMAMMO 11:09 | PROVIDERS: ATTEND Family Medicine | DX: Z12.31 Encounter for screening mammogram for malignant neoplasm of breast (principal) | CPT/HCPCS: 77063; 77067 ==

== ENCOUNTER 2018-11-04 09:57 | Outpatient (CLI) | payer MEDICARE ==
--- NOTE | 2018-11-04 10:58 | RAD ---
TWO VIEWS CHEST: Comparison: 07-31-17 History: Dyspnea. FINDINGS: Two views of the chest show normal sized cardiomediastinal silhouette. There is no evidence of consol idation, mass, or pleural effusion. Degenerative changes are seen in the spine. IMPRESSION: No evidence of acute cardiopulmonary disease. POS: [facility]
== END 2018-11-04 09:58 | disposition home or self-care (01) ==
LOC: RAD 09:57
PROVIDERS: ATTEND Internal Medicine
DX: R06.00 Dyspnea, unspecified (principal)
CPT/HCPCS: 71046

== ENCOUNTER 2019-07-16 11:38 | Inpatient (IN) | payer MEDICARE ==
[2019-07-16] MEDS ORDERED: methylPREDNISolone Sod Succ/PF 125 MG/2 ML VIAL ONE (12:00)
[2019-07-16] MEDS ORDERED: Magnesium 2 GM/50 ML BAG (IN WATER) ONE (12:00)
[2019-07-16] MEDS ORDERED: Albuterol Sulfate 2.5 mg/0.5 ml Neb ONE (12:13)
[2019-07-16] MEDS ORDERED: Albuterol Sulfate 2.5 mg/3 ml Neb ONE (12:14)
[2019-07-16 12:29] LABS: Hemoglobin 12.3 g/dL (12.0-16.0); Mean Corpuscular HGB CONC 32.1 g/dL (32.0-36.0); Mean Corpuscular Volume 99.5 fL (78.0-98.0); Mean Platelet Volume 9.7 fL (7.4-10.4); Platelet Count 205 thou/uL (130-400); RBC Distribution Width 11.6 % (11.5-14.5); Red Blood Cell (RBC) Count 3.86 mill/uL (4.20-5.40); White Blood Cell (WBC) Count 20.6 thou/uL (4.8-10.8)
[2019-07-16 12:30] LABS: ALT (SGPT) 10 U/L (8-55); AST (SGOT) 10 U/L (5-34); Albumin 3.7 g/dL (3.4-4.8); Alkaline Phosphatase 98 U/L (40-110); Anion Gap 11 mmol/L (10-20); BUN (Urea Nitrogen) 33 mg/dL (9.8-20.1); Bilirubin, Total 0.9 mg/dL (0.2-1.2); Calc. Creatinine Clearance 0 mL/min (70-130); Calcium 9.5 mg/dL (7.8-10.44); Carbon Dioxide 29 mmol/L (23-31); Chloride 102 mmol/L (98-107); Estimated GFR-MDRD 49; Globulin 3.8 g/dL (2.4-3.5); Glucose 250 mg/dL (83-110); INR-International Normal Ratio 1.1; PTT 31.4 SEC (22.9-36.1); Potassium 4.2 mmol/L (3.5-5.1); Protein, Total 7.5 g/dL (6.0-8.3); Prothrombin Time 13.9 SEC (12.0-14.7); Sodium 138 mmol/L (136-145)
[2019-07-16 12:49] LABS: Band 25 % (5-11); Lymphocytes 5 % (21-51); MDiff Complete? YES; Monocytes 9 % (0-10); Neutrophil 61 % (42-75); Platelet Morphology Comment Appears Adequate; RBC Morphology Normal
--- NOTE | 2019-07-16 12:54 | RAD ---
SINGLE VIEW OF THE CHEST: COMPARISON: 11/04/2018. HISTORY: Shortness of breath. FINDINGS: A single view of the chest shows a normal-size cardiomediastinal silhouette. Consolidation is seen i n the right lower lobe. No pleural effusion is seen. IMPRESSION: Right lower lobe pneumonia. POS: [facility]
[2019-07-16] MEDS ORDERED: Cefepime 2 GM VIAL ONE (13:14)
[2019-07-16] MEDS ORDERED: Sodium Chloride 0.9% 100 ML ONE (13:15)
[2019-07-16 13:41] LABS: Bacteria/HPF None Seen HPF (None Seen); Bilirubin Negative (Negative); Blood, Urine Trace (Negative); Clarity Clear (Clear); Glucose, Urine (Dipstick) Greater than 1000 mg/dL (Negative); Leukocyte Negative Leu/uL (Negative); Nitrite Negative (Negative); Protein, Urine (Dipstick) 100 mg/dL (Neg-Trace); RBC/HPF 0-3 HPF (0-3); Urobilinogen Normal mg/dL (Less than 2); WBC/HPF 0-3 HPF (0-3)
[2019-07-16 14:15] LABS: Analyzer IN Cardio ER; CO2 Tension 35.8 mmHg (35.0-45.0); Calcium, Ionized 1.17 mmol/L (1.12-1.30); Carboxyhemoglobin (COHb) 0.5 gm% (0.0-3.0); Hemoglobin (Hb) 11.7 g/dL (12.0-16.0); O2 Tension (PaO2) 74.6 mmHg (> 70.0); Potassium - ABG Lab 4.07 mmol/L (3.70-5.30); pH, Arterial 7.43 (7.35-7.45)
[2019-07-16 14:16] LABS: Puncture Site RRA
[2019-07-16 15:00] LABS: Lactic Acid 2.2 mmol/L (0.5-2.2)
[2019-07-16] MEDS ORDERED: Acetaminophen 325 MG TAB PO PRN (15:34)
[2019-07-16] MEDS ORDERED: Ondansetron PF 4 MG/2 ML Vial IVP PRN (15:34)
[2019-07-16] MEDS ORDERED: Ondansetron ODT 4 MG TAB SL PRN (15:34)
[2019-07-16 16:56] VITALS: BMI 29.4
[2019-07-16] MEDS ORDERED: Dextrose 50% Abboject 50 ML SYRINGE SLOW IVP PRN (17:15)
[2019-07-16] MEDS ORDERED: Dextrose 5% in Water 1,000 ML IV PRN (17:15)
[2019-07-16] MEDS ORDERED: Insulin Glargine 12 UNITS in Pre-Filled Syringe SC SCH (17:30)
--- NOTE | 2019-07-16 18:23 | HP ---
PRIMARY CARE PHYSICIAN: [facility]. CHIEF COMPLAINT: Worsening cough and shortness of breath. HISTORY OF PRESENT ILLNESS: A 79-year-old female with known history of COPD, type 2 diabetes mellitus, former smoker with prior history of pulmonary embolism, presents to the hospital with worsening cough and shortness of breath. The patient reportedly has been having cough and shortness of breath since about 2 to 3 weeks. However, in the last 4 days, cough and shortness of breath worsened and were associated with generalized weakness, wheezing, difficulty breathing, and bilateral leg swelling. The patient denied chest pain or fever. She also denied nausea or vomiting, but admitted to poor oral intake and poor appetite. There is no history of hematuria, dysuria, or abdominal pain. Due to worsening symptoms, the patient was brought to the ER. On presentation to the ER, the patient was noticed to be tachycardic and tachypneic. She was also found to be hypoxic with SpO2 of 82 on 2 L of oxygen via nasal cannula. She also was in respiratory distress and was wheezing. While in the ER, the patient spiked a temperature of 102.5. She was treated in the ER with albuterol inhalation, magnesium sulfate, IV fluid as well as antibiotic therapy with levofloxacin, cefepime, and vancomycin. Due to respiratory distress, the patient was also started on BiPAP with improvement. At home, the patient was coughing up sputum, which she described as white, but there was no hemoptysis. PAST MEDICAL HISTORY: 1. COPD. 2. Hypertension. 3. Type 2 diabetes mellitus. 4. Dyslipidemia. 5. Tobacco abuse disorder. The patient is a former smoker, who quit in September 2016. PAST SURGICAL HISTORY: Significant only for colonic polyps removal. FAMILY HISTORY: Reviewed, but noncontributory. SOCIAL HISTORY: The patient lives with family. She is a former smoker. She smoked 2 packs for several years. She quit in September 2016. She denied alcohol or recreational drug use. ALLERGIES: REPORTED ALLERGIC REACTION TO LATEX. CURRENT HOME MEDICATIONS: 1. Simvastatin 40 mg p.o. daily. 2. Lisinopril 2.5 mg p.o. daily. 3. Metformin 500 mg p.o. b.i.d. 4. Glyburide 10 mg p.o. once daily. 5. Vitamin B12 one tablet p.o. daily. 6. Anoro Ellipta 1 puff inhalation daily. 7. Lantus 10 units subcutaneously daily. 8. Proventil 1 puff inhalation as needed for shortness of breath. REVIEW OF SYSTEMS: A 12-point review of systems performed was negative other than pertinent positives and negatives included in the history of present illness. PHYSICAL EXAMINATION: VITAL SIGNS: Initial vitals on presentation to the ER showed BP 173/78, pulse 122, SpO2 of 82 on 2 L nasal cannula. Respiratory rate was 46. Temperature was 99.1. Most current vitals showed heart rate of 92, respiratory rate of 37, SpO2 of 100% on 4 L nasal cannula, and blood pressure of 149/76. GENERAL: Elderly female, in moderate respiratory distress. Afebrile. Anicteric. Acyanotic. HEENT: Normocephalic and atraumatic. Oral mucosa is dry. NECK: Supple. Nontender with good range of motion. No JVD appreciated. CARDIOVASCULAR: Regular rhythm and rate, but tachycardic. RESPIRATORY: Diminished air movement in both lungs. No obvious crackle was appreciated. Few scattered rhonchi were noted. Work of breathing is mildly increased. GI: Full, soft, nontender, and nondistended with normal bowel sounds. EXTREMITIES: Trace bilateral leg edema noted. ENVIRONMENTAL EMERGENCIES ASSISTANT: Conscious, alert, and oriented x3 with appropriate mental status. DIAGNOSTIC DATA: CBC showed WBC count of 20.6, hemoglobin of 12.3, MCV of 99.5, and platelet of 205. CMP showed sodium 138, potassium 4.2, chloride 102, CO2 of 29, BUN 33, creatinine 1.27, glucose 250, calcium 9.5, total bilirubin 0.9, AST 10, ALT 10, alkaline phosphatase 98, total protein 7.5, albumin 3.7, and globulin 3.8. Initial lactic acid was 2.2 and repeat 3 hours later also was 2.2. Initial cardiac markers showed troponin less than 0.010 and BNP of 24.2. Urinalysis showed clear urine with pH of 6.0, specific gravity of 1.019, protein of 100 mg/dL, glucose is more than 1000, trace ketone, trace blood. Negative nitrite, bilirubin, and leukocyte esterase. Microscopy showed 0 to 3 rbc and 0 to 3 wbc. Chest x-ray showed consolidation in the right lower lobe. No effusion was noted. EKG showed normal sinus rhythm, but tachycardic with rate of 109. Nonspecific ST changes noted. ASSESSMENT: 1. Acute respiratory failure with hypoxia. 2. Right lower lobe pneumonia. 3. Chronic obstructive pulmonary disease exacerbation. 4. Sepsis. 5. Chronic kidney disease with possible acute kidney injury. 6. Type 2 diabetes mellitus with hyperglycemia. 7. History of hypertension. 8. Dyslipidemia. 9. Physical deconditioning. PLAN: 1. We will continue on broad-spectrum antibiotic therapy. 2. We will get sputum culture as well as blood culture. 3. We will also get respiratory panel to rule out influenza. 4. We will also rule out acute myocardial infarction with serial troponin. 5. We will continue noninvasive respiratory support with BiPAP as needed. We will wean oxygen as tolerated. 6. We will also continue bronchodilators and steroids. 7. DVT prophylaxis with Lovenox will be commenced. 8. PPI for GERD and GI bleeding prophylaxis also will be commenced. 9. We will consult Pulmonology. 10. Further treatment to follow depending on hospital course. CODE STATUS: Full code. Spouse is the surrogate decision maker. Job ID: [id number]
[2019-07-16] MEDS: Piperacillin/Tazobactam 3.375 GM in Sodium Chloride 0.9% 100 ML IVPB SCH ×2 (18:27→23:24)
[2019-07-16] MEDS: Sodium Chloride 0.9% 1,000 ML IV SCH (18:27)
[2019-07-16] MEDS: methylPREDNISolone Sod Succ 40 MG VIAL IVP SCH ×2 (18:27→23:25)
[2019-07-16] MEDS: HumaLOG 300 UNITS/3 ML VIAL SC PRN (20:46)
[2019-07-17] MEDS: HumaLOG 300 UNITS/3 ML VIAL SC PRN ×4 (00:04→20:23)
[2019-07-17] MEDS ORDERED: Cefepime 2 GM in Sodium Chloride 0.9% 100 ML IVPB SCH (01:00)
[2019-07-17 04:12] LABS: #Lymphocytes 0.4 thou/uL (1.20-3.40); #Monocytes 0.4 thou/uL (0.11-0.59); #Neutrophils 11.7 thou/uL (1.40-6.50); %Eosinophils 0.1 % (0.0-10.0); %Lymphocytes 2.8 % (21.0-51.0); %Monocytes 3.5 % (0.0-10.0); %Neutrophils 93.7 % (42.0-75.0); Hemoglobin 10.2 g/dL (12.0-16.0); Mean Corpuscular HGB CONC 31.1 g/dL (32.0-36.0); Mean Corpuscular Hemoglobin 31.6 pg (27.0-31.0); Mean Platelet Volume 9.5 fL (7.4-10.4); Platelet Count 178 thou/uL (130-400); RBC Distribution Width 11.7 % (11.5-14.5); Red Blood Cell (RBC) Count 3.23 mill/uL (4.20-5.40); White Blood Cell (WBC) Count 12.5 thou/uL (4.8-10.8)
[2019-07-17 04:27] LABS: Anion Gap 13 mmol/L (10-20); BUN (Urea Nitrogen) 27 mg/dL (9.8-20.1); Calc. Creatinine Clearance 39 mL/min (70-130); Calcium 8.5 mg/dL (7.8-10.44); Carbon Dioxide 19 mmol/L (23-31); Chloride 109 mmol/L (98-107); Estimated GFR-MDRD 50; Glucose 354 mg/dL (83-110); Potassium 4.2 mmol/L (3.5-5.1); Sodium 137 mmol/L (136-145)
[2019-07-17] MEDS: methylPREDNISolone Sod Succ 40 MG VIAL IVP SCH (05:36)
[2019-07-17] MEDS: Piperacillin/Tazobactam 3.375 GM in Sodium Chloride 0.9% 100 ML IVPB SCH ×4 (05:36→22:57)
[2019-07-17] MEDS: Sodium Chloride 0.9% 1,000 ML IV SCH (05:37)
[2019-07-17] MEDS: Enoxaparin Sodium 40 MG/0.4 ML SYRINGE SC SCH (08:20)
[2019-07-17] MEDS: Aspirin Chewable 81 MG TAB PO SCH (08:20)
[2019-07-17] MEDS ORDERED: Insulin Glargine 30 UNITS in Pre-Filled Syringe 1 EACH SC SCH (09:00)
[2019-07-17] MEDS ORDERED: Insulin Glargine 20 UNITS in Pre-Filled Syringe SC SCH (09:00)
--- NOTE | 2019-07-17 09:45 | CON ---
DATE OF CONSULTATION: HISTORY OF PRESENT ILLNESS: Sal Duarte is a 79-year-old female, presents with 3-day history of lack of appetite, not feeling well, shortness of breath, cough, and low-grade fever. She then started developing some yellow sputum production. X-ray in the ER shows a right-sided pneumonia, and she is being admitted. She sees Dr. Becker. On a regular day, she can barely walk any significant distance without getting markedly short of breath. She says she quit smoking 2 years ago. No history of alcohol abuse. PAST MEDICAL HISTORY: Diabetes, hypertension, and COPD. PAST SURGICAL HISTORY: Previous surgeries: Colonoscopy. HOME MEDICATIONS: Include: 1. Metformin 500 twice a day. 2. Glyburide 10 a day. 3. Anoro. 4. . 5. Aspirin 81. 6. Eliquis 5 twice a day. 7. Nebulizer. ALLERGIES: NONE. REVIEW OF SYSTEMS: Otherwise, 10-point negative. PHYSICAL EXAMINATION: VITAL SIGNS: Saturations are 95% on 2 L, temperature 97, respiratory rate 25, blood pressure 137/61. GENERAL: She is awake, alert, and responsive, in no distress. She says she is feeling better this morning. CHEST: Decreased breath sounds without any wheezing or crackles. CARDIAC: Normal S1 and S2. No gallops. No masses. LABORATORY DATA: Creatinine 1.25, blood sugar 325. White count 12,000. ASSESSMENT: Chronic obstructive pulmonary disease exacerbation, right lower lobe pneumonia, diabetes, hypertension, and azotemia. She is on adequate antibiotics. I would de-escalate antibiotics once we get cultures back. Otherwise, we will notify Dr. Becker. Continue steroids and neb treatment. Consultation note of 70 minutes, 50% in direct patient care. Job ID: [id number]
[2019-07-17] MEDS: guaiFENesin ER 600 MG TAB PO SCH ×2 (11:09→20:23)
[2019-07-17] MEDS: Lactated Ringer's 1,000 ML IV SCH ×2 (11:12→19:39)
[2019-07-17] MEDS ORDERED: Vancomycin HCl 1 GM in Premix Bag 1 BAG IVPB SCH (13:00)
--- NOTE | 2019-07-17 13:12 | PDOC.HOSPP ---
- Subjective Encounter Date: 07/17/19 Encounter Time: 10:10 Subjective: 79 y/o female with COPD admitted with worsening cough and SOB associated with fever, weakness and poor appetite. Started on BIPAP, bronchodilators, steroid and oxygen. Feeling. better. - Objective Vital Signs & Weight: Vital Signs (12 hours) Temp Pulse Resp Pulse Ox 07/17/19 10:31 97.8 F 07/17/19 07:22 95 07/17/19 07:20 97.4 F L 07/17/19 07:08 95 25 H 07/17/19 04:00 98.1 F 100 Weight Weight 145 lb 12.8 oz Most Recent Monitor Data Heart Rate from ECG 99 NIBP 128/75 NIBP BP-Mean 92 Respiration from ECG 29 SpO2 97 I&O: 07/16/19 07/17/19 07/18/19 06:59 06:59 06:59 Intake Total 1974 Balance 1974 Result Diagrams: 07/17/19 03:52 07/17/19 03:52 Additional Labs: Accuchecks 07/17/19 07/17/19 07/16/19 10:14 05:29 23:55 POC Glucose 425 H 329 H 341 H 07/16/19 07/16/19 20:39 18:30 POC Glucose 418 H 296 H Hospitalist ROS - Medication Medications: Active Medications Generic Name Dose Route Start Last Admin Trade Name Freq PRN Reason Stop Dose Admin Albuterol/Ipratropium 3 ml 07/16/19 19:00 07/17/19 07:08 Duoneb NEB 3 ml [id number] KERMIT Administration Aspirin 81 mg 07/17/19 09:00 07/17/19 08:20 Aspirin Chewable PO 81 mg DAILY KERMIT Administration Enoxaparin Sodium 40 mg 07/17/19 09:00 07/17/19 08:20 Lovenox SC 40 mg 0900 KERMIT Administration Guaifenesin 600 mg 07/17/19 09:00 07/17/19 11:09 Mucinex PO 600 mg Q12HR KERMIT Administration Piperacillin Sod/Tazobactam 100 mls @ 200 mls/hr 07/16/19 18:00 07/17/19 11: 10 Sod 3.375 gm/ Sodium Chloride IVPB 100 mls Q6HR KERMIT Administration Lactated Ringer's 1,000 mls @ 50 mls/hr 07/17/19 09:00 07/17/19 11:12 Lactated Ringer's IV 1,000 mls .Q20H KERMIT Administration Insulin Human Lispro 0 units 07/16/19 17:15 07/17/19 11:12 Humalog SC 10 unit .MODERATE SLIDING SC PRN Administration Moderate Correctional Scale Pantoprazole Sodium 40 mg 07/17/19 09:00 07/17/19 08:20 Protonix PO 40 mg DAILY KERMIT Administration - Exam General Appearance: awake alert Eye: anicteric sclera ENT: normocephalic atraumatic, moist mucosa Neck: supple, symmetric Heart: RRR Respiratory: no wheezes, no ronchi, normal chest expansion Respiratory - other findings: transmitted sound noted Gastrointestinal: soft, non-tender, non-distended, normal bowel sounds Extremities: no cyanosis Extremities - other findings: trace edema Neurological: cranial nerve grossly intact, no focal deficits Psychiatric: A&O x 3 Hosp A/P (1) Sepsis Code(s): A41.9 - SEPSIS, UNSPECIFIED ORGANISM Status: Acute (2) Right lower lobe pneumonia Code(s): J18.9 - PNEUMONIA, UNSPECIFIED ORGANISM Status: Acute (3) Acute and chronic respiratory failure with hypoxia Code(s): J96.21 - ACUTE AND CHRONIC RESPIRATORY FAILURE WITH HYPOXIA Status: Acute (4) Acute bronchitis with chronic obstructive pulmonary disease (COPD) Code(s): J44.0 - CHR OBSTRUCTIVE PULMON DISEASE WITH (ACUTE) LOWER RESP INFCT; J20.9 - ACUTE BRONCHITIS, UNSPECIFIED Status: Acute (5) DM2 (diabetes mellitus, type 2) Status: Acute (6) Physical deconditioning Code(s): R53.81 - OTHER MALAISE Status: Acute - Plan Continue broad spectrum antibiotics. await sputum and blood cultures Start steroid weaning Adjust insulin therapy to get adequate glycemic control. Wean off BIPAP. Wean oxygen as tolerated. Bronchodilators to continue.
[2019-07-17] MEDS ORDERED: methylPREDNISolone Sod Succ 40 MG VIAL IVP SCH (21:00)
[2019-07-18] MEDS: Piperacillin/Tazobactam 3.375 GM in Sodium Chloride 0.9% 100 ML IVPB SCH (05:22)
[2019-07-18] MEDS: HumaLOG 300 UNITS/3 ML VIAL SC PRN ×4 (05:24→21:22)
[2019-07-18] MEDS: Aspirin Chewable 81 MG TAB PO SCH (08:47)
[2019-07-18] MEDS: guaiFENesin ER 600 MG TAB PO SCH ×2 (08:47→20:54)
[2019-07-18] MEDS: Enoxaparin Sodium 40 MG/0.4 ML SYRINGE SC SCH (08:47)
[2019-07-18] MEDS ORDERED: Insulin Glargine 30 UNITS in Pre-Filled Syringe 1 EACH SC SCH (09:00)
[2019-07-18] MEDS: predniSONE 20 MG TAB PO SCH (10:07)
[2019-07-18] MEDS: Insulin Glargine 40 UNITS in Pre-Filled Syringe 1 EACH SC SCH (10:08)
[2019-07-18] MEDS: HumaLOG 300 UNITS/3 ML VIAL SC SCH ×3 (10:09→16:52)
[2019-07-18 10:35] LABS: Hemoglobin 11.4 g/dL (12.0-16.0); Mean Corpuscular HGB CONC 31.4 g/dL (32.0-36.0); Mean Corpuscular Hemoglobin 31.8 pg (27.0-31.0); Mean Platelet Volume 9.2 fL (7.4-10.4); Platelet Count 238 thou/uL (130-400); RBC Distribution Width 11.7 % (11.5-14.5); Red Blood Cell (RBC) Count 3.58 mill/uL (4.20-5.40); White Blood Cell (WBC) Count 15.3 thou/uL (4.8-10.8)
[2019-07-18 10:53] LABS: Albumin 3.4 g/dL (3.4-4.8); Anion Gap 14 mmol/L (10-20); BUN (Urea Nitrogen) 20 mg/dL (9.8-20.1); BUN/Creatinine Ratio 17.86; Calc. Creatinine Clearance 44 mL/min (70-130); Calcium 9.2 mg/dL (7.8-10.44); Carbon Dioxide 20 mmol/L (23-31); Chloride 109 mmol/L (98-107); Estimated GFR-MDRD 57; Glucose 305 mg/dL (83-110); Potassium 4.4 mmol/L (3.5-5.1); Sodium 139 mmol/L (136-145)
[2019-07-18 10:57] LABS: Phosphorus 1.8 mg/dL (2.3-4.7)
[2019-07-18 11:09] LABS: Vancomycin, Trough 6.9 ug/mL
[2019-07-18 11:11] LABS: Burr Cells SLIGHT = 2-5 cells (100X) (0-1/hpf); Lymphocytes 1 % (21-51); MDiff Complete? YES; Monocytes 9 % (0-10); Neutrophil 89 % (42-75); Ovalocytes SLIGHT = 2-5 cells (100X) (0-1/hpf); Platelet Morphology Comment Appears Adequate; Polychromasia SLIGHT = 2-3 cells (100X) (0-2/hpf); Reactive Lymphocytes 1 % (0-10)
[2019-07-18] MEDS: Piperacillin/Tazobactam 2.25 GM in Sodium Chloride 0.9% 100 ML IVPB SCH ×3 (11:26→23:58)
[2019-07-18] MEDS: Vancomycin HCl 750 MG in Sodium Chloride 0.9% 250 ML 250 ML IVPB SCH (12:04)
--- NOTE | 2019-07-18 12:55 | PRG ---
DATE OF SERVICE: 07/18/2019 SUBJECTIVE: This morning, she is doing better. She is less short of breath, less cough. OBJECTIVE: VITAL SIGNS: Temperature 98, pulse 90, respiratory rate 20, saturations 96% on 1 L, blood pressure 150/65. CHEST: Decreased breath sounds. No wheezing. CARDIAC: Normal S1 and S2. No gallops. ABDOMEN: No masses. LABORATORY DATA: White count 15,000, hemoglobin and hematocrit unremarkable. Electrolytes are normal. Creatinine 1.25. ASSESSMENT: Right lower lobe pneumonia, chronic obstructive pulmonary disease. PLAN: Continue antibiotics. Probably discontinue vancomycin tomorrow if cultures are negative. Job ID: [id number]
[2019-07-18] MEDS ORDERED: Vancomycin HCl 1 GM in Premix Bag 1 BAG IVPB SCH (13:00)
[2019-07-18] MEDS: Lactated Ringer's 1,000 ML IV SCH (13:24)
--- NOTE | 2019-07-18 13:41 | PDOC.HOSPP ---
- Subjective Encounter Date: 07/18/19 Encounter Time: 10:37 Subjective: 79 y/o female with COPD admitted with worsening cough and SOB associated with fever, weakness and poor appetite. Started on BIPAP, bronchodilators, steroid and oxygen. Feeling. better. SOB and cough are subsiding. - Objective Vital Signs & Weight: Vital Signs (12 hours) Temp Pulse Resp BP Pulse Ox 07/18/19 12:42 79 16 98 07/18/19 08:00 98.1 F 91 20 151/61 H 96 07/18/19 06:39 75 16 94 L 07/18/19 03:40 98.4 F 80 20 158/68 H 95 Weight Weight 145 lb 12.8 oz Most Recent Monitor Data Heart Rate from ECG 90 NIBP 100/84 NIBP BP-Mean 89 Respiration from ECG 21 SpO2 97 I&O: 07/17/19 07/18/19 07/19/19 06:59 06:59 06:59 Intake Total 1974 2775 Balance 1974 2775 Result Diagrams: 07/18/19 10:24 07/18/19 10:24 Additional Labs: Accuchecks 07/18/19 07/18/19 07/17/19 11:34 05:26 20:25 POC Glucose 276 H 372 H 340 H 07/17/19 16:34 POC Glucose 387 H Hospitalist ROS - Medication Medications: Active Medications Generic Name Dose Route Start Last Admin Trade Name Freq PRN Reason Stop Dose Admin Albuterol/Ipratropium 3 ml 07/16/19 19:00 07/18/19 12:42 Duoneb NEB 3 ml [id number] KERMIT Administration Aspirin 81 mg 07/17/19 09:00 07/18/19 08:47 Aspirin Chewable PO 81 mg DAILY KERMIT Administration Enoxaparin Sodium 40 mg 07/17/19 09:00 07/18/19 08:47 Lovenox SC 40 mg 0900 KERMIT Administration Guaifenesin 600 mg 07/17/19 09:00 07/18/19 08:47 Mucinex PO 600 mg Q12HR KERMIT Administration Levofloxacin 750 mg/ Device 150 mls @ 100 mls/hr 07/18/19 14:00 07/18/19 13: 30 IVPB 150 mls Q2D@1400 KERMIT Administration Insulin Glargine 40 units/ 0.4 mls @ 0 mls/hr 07/18/19 09:00 07/18/19 10:08 Miscellaneous Medication SC 0.4 mls QAM KERMIT Administration Piperacillin Sod/Tazobactam 100 mls @ 200 mls/hr 07/18/19 12:00 07/18/19 11: 26 Sod 2.25 gm/ Sodium Chloride IVPB 100 mls Q6HR KERMIT Administration Vancomycin HCl 750 mg/ Sodium 250 mls @ 250 mls/hr 07/18/19 13:00 07/18/19 12 :04 Chloride IVPB 250 mls 0100,1300 KERMIT Administration Lactated Ringer's 1,000 mls @ 80 mls/hr 07/18/19 11:36 07/18/19 13:24 Lactated Ringer's IV 1,000 mls .[id number] KERMIT Administration Insulin Human Lispro 0 units 07/16/19 17:15 07/18/19 11:34 Humalog SC 6 unit .MODERATE SLIDING SC PRN Administration Moderate Correctional Scale Insulin Human Lispro 3 units 07/18/19 08:00 07/18/19 11:34 Humalog SC 3 unit TID-WM KERMIT Administration Pantoprazole Sodium 40 mg 07/17/19 09:00 07/18/19 08:47 Protonix PO 40 mg DAILY KERMIT Administration Prednisone 40 mg 07/18/19 09:00 07/18/19 10:07 Prednisone PO 40 mg DAILY KERMIT Administration Sodium Chloride 10 ml 07/18/19 09:00 07/18/19 10:14 Flush - Normal Saline IVF 10 ml Q12HR KERMIT Administration - Exam General Appearance: awake alert Eye: anicteric sclera ENT: normocephalic atraumatic, moist mucosa Neck: supple, symmetric Heart: RRR Respiratory: no wheezes, no ronchi Respiratory - other findings: fair air entry with prolonged exoiration and few rhonchi Gastrointestinal: soft, non-tender, non-distended, normal bowel sounds Extremities: no edema Neurological: cranial nerve grossly intact, no focal deficits Psychiatric: A&O x 3 Hosp A/P (1) Acute and chronic respiratory failure with hypoxia Code(s): J96.21 - ACUTE AND CHRONIC RESPIRATORY FAILURE WITH HYPOXIA Status: Acute (2) Sepsis Code(s): A41.9 - SEPSIS, UNSPECIFIED ORGANISM Status: Acute (3) Right lower lobe pneumonia Code(s): J18.9 - PNEUMONIA, UNSPECIFIED ORGANISM Status: Acute (4) Acute bronchitis with chronic obstructive pulmonary disease (COPD) Code(s): J44.0 - CHR OBSTRUCTIVE PULMON DISEASE WITH (ACUTE) LOWER RESP INFCT; J20.9 - ACUTE BRONCHITIS, UNSPECIFIED Status: Acute (5) DM2 (diabetes mellitus, type 2) Status: Acute (6) Physical deconditioning Code(s): R53.81 - OTHER MALAISE Status: Acute (7) Hypophosphatemia Code(s): E83.39 - OTHER DISORDERS OF PHOSPHORUS METABOLISM Status: Acute (8) CKD (chronic kidney disease) stage 3, GFR 30-59 ml/min Code(s): N18.3 - CHRONIC KIDNEY DISEASE, STAGE 3 (MODERATE) Status: Acute - Plan Continue broad spectrum antibiotics. await sputum and blood cultures Increase lantus Wean oxygen as tolerated. Bronchodilators to continue. Increase activity Replete serum phosphate
[2019-07-18] MEDS: PHOS-NAK 1 PKT PACK PO SCH ×2 (14:59→20:55)
[2019-07-19] MEDS: Vancomycin HCl 750 MG in Sodium Chloride 0.9% 250 ML 250 ML IVPB SCH (00:37)
[2019-07-19] MEDS: Lactated Ringer's 1,000 ML IV SCH (01:17)
[2019-07-19] MEDS: Piperacillin/Tazobactam 2.25 GM in Sodium Chloride 0.9% 100 ML IVPB SCH (05:27)
[2019-07-19] MEDS: HumaLOG 300 UNITS/3 ML VIAL SC PRN ×3 (06:09→21:53)
[2019-07-19 06:58] LABS: Hemoglobin 10.2 g/dL (12.0-16.0); Mean Corpuscular HGB CONC 31.4 g/dL (32.0-36.0); Mean Platelet Volume 8.8 fL (7.4-10.4); Platelet Count 262 thou/uL (130-400); RBC Distribution Width 11.6 % (11.5-14.5); White Blood Cell (WBC) Count 9.6 thou/uL (4.8-10.8)
[2019-07-19 07:16] LABS: Albumin 3.1 g/dL (3.4-4.8); Anion Gap 11 mmol/L (10-20); BUN (Urea Nitrogen) 16 mg/dL (9.8-20.1); BUN/Creatinine Ratio 18.18; Calc. Creatinine Clearance 56 mL/min (70-130); Calcium 8.8 mg/dL (7.8-10.44); Carbon Dioxide 26 mmol/L (23-31); Chloride 108 mmol/L (98-107); Estimated GFR-MDRD 75; Glucose 182 mg/dL (83-110); Phosphorus 2.6 mg/dL (2.3-4.7); Potassium 4.2 mmol/L (3.5-5.1); Sodium 141 mmol/L (136-145)
[2019-07-19] MEDS: guaiFENesin ER 600 MG TAB PO SCH ×2 (08:05→20:05)
[2019-07-19] MEDS: Aspirin Chewable 81 MG TAB PO SCH (08:06)
[2019-07-19] MEDS: predniSONE 20 MG TAB PO SCH (08:06)
[2019-07-19] MEDS: Enoxaparin Sodium 40 MG/0.4 ML SYRINGE SC SCH (08:08)
[2019-07-19] MEDS: Insulin Glargine 40 UNITS in Pre-Filled Syringe 1 EACH SC SCH (08:15)
[2019-07-19] MEDS: HumaLOG 300 UNITS/3 ML VIAL SC SCH ×3 (08:16→18:13)
[2019-07-19] MEDS ORDERED: Lisinopril 10 MG TAB PO SCH ×2 (09:00→18:15)
--- NOTE | 2019-07-19 09:23 | PDOC.HOSPP ---
- Subjective Encounter Date: 07/19/19 Encounter Time: 09:22 Subjective: 79 y/o female with COPD admitted with worsening cough and SOB associated with fever, weakness and poor appetite. Started on BIPAP, bronchodilators, steroid and oxygen. SOB and cough are subsiding. still wheezing. - Objective Vital Signs & Weight: Vital Signs (12 hours) Temp Pulse Resp BP BP BP Pulse Ox 07/19/19 08:17 160/80 H 07/19/19 08:01 98.0 F 80 19 164/80 H 94 L 07/19/19 06:31 100 07/19/19 06:25 81 20 100 07/19/19 06:20 188/81 H 07/19/19 05:10 97.7 F 93 16 187/80 H 96 07/19/19 00:55 86 20 96 07/18/19 23:56 97.7 F 74 16 172/74 H 97 Weight Weight 145 lb 12.8 oz Most Recent Monitor Data Heart Rate from ECG 90 NIBP 100/84 NIBP BP-Mean 89 Respiration from ECG 21 SpO2 97 I&O: 07/18/19 07/19/19 07/20/19 06:59 06:59 06:59 Intake Total 2775 1900 Balance 2775 1900 Result Diagrams: 07/19/19 06:08 07/19/19 06:08 Additional Labs: Accuchecks 07/19/19 07/18/19 07/18/19 05:27 20:56 16:52 POC Glucose 173 H 307 H 269 H 07/18/19 07/18/19 11:34 05:26 POC Glucose 276 H 372 H Hospitalist ROS - Medication Medications: Active Medications Generic Name Dose Route Start Last Admin Trade Name Freq PRN Reason Stop Dose Admin Aspirin 81 mg 07/17/19 09:00 07/19/19 08:06 Aspirin Chewable PO Not Given DAILY KERMIT Enoxaparin Sodium 40 mg 07/17/19 09:00 07/19/19 08:08 Lovenox SC 40 mg 0900 KERMIT Administration Guaifenesin 600 mg 07/17/19 09:00 07/19/19 08:05 Mucinex PO 600 mg Q12HR KERMIT Administration Insulin Glargine 40 units/ 0.4 mls @ 0 mls/hr 07/18/19 09:00 07/19/19 08:15 Miscellaneous Medication SC 0.4 mls QAM KERMIT Administration Insulin Human Lispro 0 units 07/16/19 17:15 07/19/19 06:09 Humalog SC 2 unit .MODERATE SLIDING SC PRN Administration Moderate Correctional Scale Insulin Human Lispro 3 units 07/18/19 08:00 07/19/19 08:16 Humalog SC 3 unit TID-WM KERMIT Administration Levofloxacin 750 mg 07/19/19 08:00 07/19/19 08:15 Levaquin PO 07/19/19 10:00 750 mg 0800 KERMIT Administration Lisinopril 10 mg 07/19/19 09:00 07/19/19 08:17 Zestril PO 10 mg DAILY KERMIT Administration Pantoprazole Sodium 40 mg 07/17/19 09:00 07/19/19 08:07 Protonix PO 40 mg DAILY KERMIT Administration Prednisone 40 mg 07/18/19 09:00 07/19/19 08:06 Prednisone PO 40 mg DAILY KERMIT Administration Sodium Chloride 10 ml 07/18/19 09:00 07/19/19 08:18 Flush - Normal Saline IVF 10 ml Q12HR KERMIT Administration - Exam General Appearance: awake alert Eye: anicteric sclera ENT: normocephalic atraumatic Neck: supple, symmetric Heart: RRR Respiratory: normal chest expansion Respiratory - other findings: fair air entry with some transmitted sound and few rhonchi. Gastrointestinal: soft, non-tender, non-distended, normal bowel sounds Extremities: no cyanosis, no edema Neurological: cranial nerve grossly intact, no focal deficits Psychiatric: A&O x 3 Hosp A/P (1) Acute and chronic respiratory failure with hypoxia Code(s): J96.21 - ACUTE AND CHRONIC RESPIRATORY FAILURE WITH HYPOXIA Status: Acute (2) Sepsis Code(s): A41.9 - SEPSIS, UNSPECIFIED ORGANISM Status: Acute (3) Right lower lobe pneumonia Code(s): J18.9 - PNEUMONIA, UNSPECIFIED ORGANISM Status: Acute (4) Acute bronchitis with chronic obstructive pulmonary disease (COPD) Code(s): J44.0 - CHR OBSTRUCTIVE PULMON DISEASE WITH (ACUTE) LOWER RESP INFCT; J20.9 - ACUTE BRONCHITIS, UNSPECIFIED Status: Acute (5) DM2 (diabetes mellitus, type 2) Status: Acute (6) Physical deconditioning Code(s): R53.81 - OTHER MALAISE Status: Acute (7) Hypophosphatemia Code(s): E83.39 - OTHER DISORDERS OF PHOSPHORUS METABOLISM Status: Acute (8) CKD (chronic kidney disease) stage 3, GFR 30-59 ml/min Code(s): N18.3 - CHRONIC KIDNEY DISEASE, STAGE 3 (MODERATE) Status: Acute (9) АНДРЕЙ (acute kidney injury) Code(s): N17.9 - ACUTE KIDNEY FAILURE, UNSPECIFIED Status: Acute (10) CHRISTINE on CPAP Code(s): G47.33 - OBSTRUCTIVE SLEEP APNEA (ADULT) (PEDIATRIC); Z99.89 - DEPENDENCE ON OTHER ENABLING MACHINES AND DEVICES Status: Acute - Plan DC IV zosyn and vanc and transition IV levaquin to oral as cultures grew normal kaden Continue insulin therapy Wean oxygen as tolerated. Bronchodilators to continue. Restart BIPAP at night for CHRISTINE Increase activity
[2019-07-19 09:45] LABS: Band 12 % (5-11); Eosinophils 1 % (0-10); Lymphocytes 10 % (21-51); MDiff Complete? YES; Monocytes 5 % (0-10); Neutrophil 72 % (42-75); Platelet Morphology Comment Appears Adequate; Polychromasia SLIGHT = 2-3 cells (100X) (0-2/hpf)
[2019-07-19] MEDS ORDERED: hydrALAZINE 20 MG/ML VIAL SLOW IVP PRN (18:01)
[2019-07-20 07:23] VITALS: TEMP 98.1
[2019-07-20] MEDS ORDERED: Lisinopril 20 MG TAB PO SCH (09:00)
[2019-07-20] MEDS: Insulin Glargine 40 UNITS in Pre-Filled Syringe 1 EACH SC SCH (09:49)
[2019-07-20] MEDS: HumaLOG 300 UNITS/3 ML VIAL SC SCH ×2 (09:49→12:24)
[2019-07-20] MEDS: predniSONE 20 MG TAB PO SCH (09:50)
[2019-07-20] MEDS: guaiFENesin ER 600 MG TAB PO SCH (09:50)
[2019-07-20] MEDS: Enoxaparin Sodium 40 MG/0.4 ML SYRINGE SC SCH (09:50)
[2019-07-20] MEDS: Aspirin Chewable 81 MG TAB PO SCH (09:52)
[2019-07-20 10:02] VITALS: BP 141/67
--- NOTE | 2019-07-20 19:41 | DIS ---
DATE OF ADMISSION: 07/16/2019 DATE OF DISCHARGE: 07/20/2019 DISCHARGE DISPOSITION: Home. FOLLOWUP: Follow up with [facility] in 1 week. ALLERGIES: THE PATIENT IS ALLERGIC TO LATEX. DISCHARGE MEDICATION: 1. Omnicef 300 mg twice daily for three more days. 2. Prednisone taper. 3. Levaquin 500 mg daily for next 5 more days. 4. All other home medications were left unchanged. FOLLOWUP: The patient was advised to follow up with Dr. Becker. The patient was seen and examined on the day of discharge. Denies any new complaints. Denies any shortness of breath or wheezing at rest. BRIEF HOSPITAL COURSE: The patient is a 79-year-old female with COPD and tobacco abuse in the past, presented to the hospital with worsening shortness of breath along with cough. Her O2 saturation in the emergency room was 82% on 2 L nasal cannula with pulse rate of 122, blood pressure of 173/78. She was started on cefepime, Levaquin, along with vancomycin and steroids in the emergency room. She was monitored in the intermediate care unit. She was seen by Pulmonary, Dr. Saul. She required noninvasive positive pressure ventilation during this hospital stay. She is currently in the medical floor. She appears stable for discharge. FINAL DIAGNOSES: 1. Severe sepsis secondary to right lower lobe pneumonia with acute on chronic hypoxic respiratory failure. 2. Chronic obstructive pulmonary disease exacerbation. 3. Acute kidney injury on chronic kidney disease stage 2. 4. Diabetes mellitus type 2. 5. Physical deconditioning. 6. Chronic anticoagulation for pulmonary embolism. 7. Hypertension. 8. Diabetes mellitus type 2. 9. Dyslipidemia. 10. Former smoker. 11. Hypophosphatemia. 12. Moderate protein-calorie malnutrition. PLAN: Plan of care was discussed with the patient in detail. She stated understanding. Job ID: [id number]
== END 2019-07-20 13:50 | disposition home or self-care (01) | DRG 871 ==
LOC: ERS 11:38 → IMCU/EMU 14:03 → ONC 07-17 19:39
PROVIDERS: ADMIT Internal Medicine Nephrology; ATTEND Internal Medicine Nephrology
DX: A41.9 Sepsis, unspecified organism (principal); J18.9 Pneumonia, unspecified organism; J96.21 Acute and chronic respiratory failure with hypoxia; I26.99 Other pulmonary embolism without acute cor pulmonale; J44.1 Chronic obstructive pulmonary disease with (acute) exacerbation; J44.0 Chronic obstructive pulmonary disease with (acute) lower respiratory infection; N17.9 Acute kidney failure, unspecified; E44.0 Moderate protein-calorie malnutrition; R65.20 Severe sepsis without septic shock; I12.9 Hypertensive chronic kidney disease with stage 1 through stage 4 chronic kidney disease, or unspecified chronic kidney disease; E11.22 Type 2 diabetes mellitus with diabetic chronic kidney disease; N18.2 Chronic kidney disease, stage 2 (mild); E11.65 Type 2 diabetes mellitus with hyperglycemia; E78.5 Hyperlipidemia, unspecified; E83.39 Other disorders of phosphorus metabolism; J20.9 Acute bronchitis, unspecified; G47.33 Obstructive sleep apnea (adult) (pediatric); Z99.89 Dependence on other enabling machines and devices; Z79.01 Long term (current) use of anticoagulants; Z87.891 Personal history of nicotine dependence; Z68.29 Body mass index [BMI] 29.0-29.9, adult
CPT/HCPCS: 36415; 36416; 51701; 71045; 80053; 80069; 80202; 81003; 81015; 82805; 83605; 83880; 84484; 85025; 85610; 85730; 87040; 87070; 87086; 87205; 93005; 94640; 94660; 94760; 96365; 96367; 96375; A4353; J0692; J1650; J1815; J1956; J2543; J2920; J2930; J3370; J3475; J3490; J7050; J7512; J7611; J7620

== ENCOUNTER 2023-03-13 08:10 | Outpatient (CLI) | payer MEDICARE | END 2023-03-13 08:11 | disposition home or self-care (01) | LOC: RAD 08:10 | PROVIDERS: ATTEND Internal Medicine Critical Care Medicine | DX: R06.00 Dyspnea, unspecified (principal) | CPT/HCPCS: 71046 ==

== ENCOUNTER 2023-06-18 01:09 | Inpatient (IN) | payer MEDICARE, OTHER ==
[2023-06-18] MEDS ORDERED: Furosemide 40 MG/4 ML VIAL ONE ×2 (01:30→01:33)
[2023-06-18] MEDS ORDERED: Magnesium 2 GM/50 ML BAG (IN WATER) ONE (01:33)
[2023-06-18] MEDS ORDERED: methylPREDNISolone Sod Succ/PF 125 MG/2 ML VIAL ONE (04:13)
[2023-06-18] MEDS ORDERED: LevoFLOXacin 750 mg/D5W 150 ml Premix Bag ONE (04:27)
[2023-06-18 04:57] LABS: Anion Gap 14 mmol/L (10-20); BUN (Urea Nitrogen) 20 mg/dL (9.8-20.1); Calc. Creatinine Clearance 0 mL/min (70-130); Carbon Dioxide 31 mmol/L (23-31); Chloride 103 mmol/L (98-107); Estimated GFR 51; Potassium 4.4 mmol/L (3.5-5.1); Sodium 144 mmol/L (136-145)
[2023-06-18 04:58] LABS: ALT (SGPT) 99 U/L (8-55); AST (SGOT) 175 U/L (5-34); Albumin 3.1 g/dL (3.4-4.8); Alkaline Phosphatase 125 U/L (40-110); Bilirubin, Total 0.5 mg/dL (0.2-1.2); Cholesterol 101 mg/dL (< 200 Desired); Globulin 3.7 g/dL (2.4-3.5); Glucose 337 mg/dL (83-110); HDL Cholesterol 42 mg/dL (>60 Neg Risk); LDL Cholesterol, Calculated 47 mg/dL; Lipase 54 U/L (8-78); Magnesium 2.6 mg/dL (1.6-2.6); Protein, Total 6.8 g/dL (5.8-8.1); Triglycerides 60 mg/dL (Less than 150)
[2023-06-18 04:59] LABS: Cardiac Risk 2.4 (Less than 4.5); Troponin I 0.057 ng/mL (< 0.028)
[2023-06-18 05:02] LABS: Hematocrit 30.8 % (36.0-47.0); Mean Corpuscular HGB CONC 29.2 g/dL (32.0-36.0); Mean Corpuscular Hemoglobin 31.5 pg (27.0-31.0); Mean Corpuscular Volume 107.7 fl (78.0-98.0); Mean Platelet Volume 10.3 fL (7.4-10.4); Platelet Count 470 10x3/uL (130-400); Red Blood Cell (RBC) Count 2.86 mill/uL (4.20-5.40); White Blood Cell (WBC) Count 18.7 10x3/uL (4.8-10.8)
[2023-06-18 05:03] LABS: #Basophils 0.1 thou/uL (0.0-0.2); #Eosinphils 0.3 thou/uL (0.0-0.7); #Neutrophils 14.3 thou/uL (1.40-6.50); %Basophils 0.3 % (0.0-1.0); %Eosinophils 1.4 % (0.0-10.0); %Lymphocytes 14.9 % (21.0-51.0); %Monocytes 5.4 % (0.0-10.0); %Neutrophils 76.7 % (42.0-75.0)
[2023-06-18 05:27] LABS: SARS-CoV-2 NAA Rapid Test Not Detected (NotDetected)
[2023-06-18] MEDS ORDERED: Dextrose 50% Abboject 50 ML SYRINGE SLOW IVP PRN (06:01)
[2023-06-18] MEDS ORDERED: Glucagon 1 MG/ML KIT IM PRN (06:01)
[2023-06-18] MEDS ORDERED: Dextrose 5% in Water 1,000 ML IV PRN (06:01)
[2023-06-18] MEDS ORDERED: Acetaminophen 325 MG TAB PO PRN (06:05)
[2023-06-18] MEDS ORDERED: Ondansetron ODT 4 MG TAB PO PRN (06:05)
[2023-06-18] MEDS ORDERED: Ondansetron PF 4 MG/2 ML Vial IVP PRN (06:05)
[2023-06-18] MEDS ORDERED: Electrolyte Replacement Protocol 1 EACH IVPB PRN (06:06)
[2023-06-18] MEDS ORDERED: Ipratropium Bromide 2.5 ml Neb NEB SCH (06:30)
[2023-06-18 06:47] VITALS: BMI 23.2
[2023-06-18] MEDS ORDERED: cefTRIAXone\\ROCEPHIN 1 GM in Sodium Chloride 0.9% 100 ML IVPB SCH (08:00)
[2023-06-18] MEDS ORDERED: LevoFLOXacin 750 mg/D5W 750 MG in Premix 1 BAG IVPB SCH (08:00)
[2023-06-18] MEDS ORDERED: Azithromycin 500 MG in Sodium Chloride 0.9% 250 ML 250 ML IVPB SCH (08:00)
[2023-06-18] MEDS ORDERED: Ipratropium/Albuterol 3 ML NEB NEB PRN (08:14)
[2023-06-18 08:15] LABS: HBCM Index 0.07 S/CO (0-0.79); HBSAg Index 0.19 S/CO (0-0.99); Hep A IgM AB Non-Reactive S/CO (NonReactive); Hep A IgM S/CO 0.18 S/CO (0-0.79); Hep B Surf Ag Non-Reactive S/CO (NonReactive); Hep C IgG Ab Non-Reactive S/CO (NonReactive); Hep C Index 0.18 S/CO (0-0.79); Hepatitis B Core IgM Abs Non-Reactive S/CO (NonReactive)
[2023-06-18 08:44] LABS: Bilirubin Negative (Negative); Blood, Urine Negative (Negative); Glucose, Urine (Dipstick) >=1000 mg/dL (Negative); Ketone, Urine Negative (Negative); Leukocyte Negative (Negative); Nitrite Negative (Negative); Protein, Urine (Dipstick) Negative (Neg-Trace); Urobilinogen 0.2 mg/dL (Less than 2); pH, Urine 5.5 (5.0-9.0)
[2023-06-18 08:46] LABS: Clarity Clear (Clear)
[2023-06-18 08:59] LABS: Bacteria/HPF None Seen HPF (None Seen); CAUTI Indications for Culture Alt mental st,lethar; RBC/HPF None Seen HPF (0-3); Squamous Epithelial 0-3 HPF (0-3); WBC/HPF None Seen HPF (0-3)
[2023-06-18 09:00] LABS: Urine Culture Reflex No No
[2023-06-18] MEDS ORDERED: CYANOCOBALAMIN 100 MCG PO SCH (09:00)
[2023-06-18] MEDS ORDERED: CYANOCOBALAMIN 50 MCG PO SCH (09:00)
[2023-06-18] MEDS ORDERED: Non-Formulary Item 1 EACH (Multivitamin [Multivitamin] 1 EACH Tablet) PO SCH (09:00)
[2023-06-18] MEDS: Clopidogrel Bisulfate 75 MG TAB PO SCH (09:03)
[2023-06-18] MEDS: Aspirin 81 mg Enteric Coated Tablet PO SCH (09:03)
[2023-06-18] MEDS: Ferrous Sulfate 325 MG TAB PO SCH (09:03)
[2023-06-18] MEDS: Insulin Glargine 30 UNITS/0.3 ML VIAL SC SCH (09:03)
[2023-06-18] MEDS: Pentoxifylline 400 MG ER.TAB PO SCH ×3 (09:04→21:36)
[2023-06-18] MEDS: Multivit, Therapeutic 1 TAB PO SCH (09:04)
[2023-06-18] MEDS: Pantoprazole 40 MG VIAL IVP SCH (09:04)
[2023-06-18] MEDS: Ipratropium/Albuterol 3 ML NEB NEB SCH ×4 (10:36→22:13)
[2023-06-18] MEDS: methylPREDNISolone Sod Succ 40 MG VIAL IVP SCH ×3 (12:43→23:44)
[2023-06-18] MEDS: Furosemide 40 MG/4 ML VIAL SLOW IVP SCH (13:49)
[2023-06-18] MEDS ORDERED: Lorazepam 2 MG/ML VIAL SLOW IVP SCH (13:57)
[2023-06-18] MEDS ORDERED: Non-Formulary Item 1 EACH (Metformin Hcl [Metformin Hcl] 1,000 MG Tablet) PO SCH (17:00)
[2023-06-18] MEDS: metFORMIN 500 MG TAB PO SCH (17:35)
[2023-06-18] MEDS ORDERED: Non-Formulary Item 1 EACH (Atorvastatin Calcium [Atorvastatin Calcium] 80 MG Tablet) PO SCH (21:00)
[2023-06-18] MEDS: Atorvastatin Calcium 40 MG TAB PO SCH (21:36)
[2023-06-18] MEDS: HumaLOG 300 UNITS/3 ML VIAL SC PRN (21:36)
[2023-06-18] MEDS: Latanoprost 0.005% Ophth Soln 2.5 ml Bottle EA EYE SCH (21:36)
[2023-06-19] MEDS: Ipratropium/Albuterol 3 ML NEB NEB SCH ×6 (02:08→22:24)
[2023-06-19] MEDS: methylPREDNISolone Sod Succ 40 MG VIAL IVP SCH ×3 (05:52→18:20)
[2023-06-19] MEDS: Furosemide 40 MG/4 ML VIAL SLOW IVP SCH ×2 (05:52→13:50)
[2023-06-19] MEDS: HumaLOG 300 UNITS/3 ML VIAL SC PRN ×3 (05:52→21:07)
[2023-06-19 08:33] LABS: #Monocytes 0.4 thou/uL (0.11-0.59); #Neutrophils 9.4 thou/uL (1.40-6.50); %Lymphocytes 4.8 % (21.0-51.0); %Monocytes 4.3 % (0.0-10.0); %Neutrophils 90.5 % (42.0-75.0); Hematocrit 29.6 % (36.0-47.0); Hemoglobin 8.8 g/dL (12.0-16.0); Mean Corpuscular HGB CONC 29.7 g/dL (32.0-36.0); Mean Corpuscular Hemoglobin 31.8 pg (27.0-31.0); Mean Corpuscular Volume 106.9 fl (78.0-98.0); Mean Platelet Volume 10.5 fL (7.4-10.4); Platelet Count 348 10x3/uL (130-400); RBC Distribution Width 15.4 % (11.5-14.5); Red Blood Cell (RBC) Count 2.77 mill/uL (4.20-5.40); White Blood Cell (WBC) Count 10.3 10x3/uL (4.8-10.8)
[2023-06-19 08:54] LABS: ALT (SGPT) 74 U/L (8-55); AST (SGOT) 38 U/L (5-34); Albumin 3.3 g/dL (3.4-4.8); Alkaline Phosphatase 102 U/L (40-110); Anion Gap 12 mmol/L (10-20); BUN (Urea Nitrogen) 29 mg/dL (9.8-20.1); Bilirubin, Total 0.3 mg/dL (0.2-1.2); Calc. Creatinine Clearance 48 mL/min (70-130); Calcium 9.3 mg/dL (7.8-10.44); Carbon Dioxide 31 mmol/L (23-31); Chloride 105 mmol/L (98-107); Estimated GFR 68; Globulin 3.4 g/dL (2.4-3.5); Glucose 213 mg/dL (83-110); Potassium 4.4 mmol/L (3.5-5.1); Protein, Total 6.7 g/dL (5.8-8.1); Sodium 144 mmol/L (136-145)
[2023-06-19] MEDS: Aspirin 81 mg Enteric Coated Tablet PO SCH (09:58)
[2023-06-19] MEDS: Multivit, Therapeutic 1 TAB PO SCH (09:58)
[2023-06-19] MEDS: Pantoprazole 40 MG VIAL IVP SCH (09:58)
[2023-06-19] MEDS: Clopidogrel Bisulfate 75 MG TAB PO SCH (09:58)
[2023-06-19] MEDS: Insulin Glargine 30 UNITS/0.3 ML VIAL SC SCH (10:00)
[2023-06-19] MEDS: Pentoxifylline 400 MG ER.TAB PO SCH ×3 (13:26→21:06)
[2023-06-19] MEDS: ALPRAZolam 0.25 MG TAB PO PRN ×2 (13:51→21:06)
[2023-06-19] MEDS: metFORMIN 500 MG TAB PO SCH (18:21)
[2023-06-19] MEDS: Atorvastatin Calcium 40 MG TAB PO SCH (21:06)
[2023-06-19] MEDS: Latanoprost 0.005% Ophth Soln 2.5 ml Bottle EA EYE SCH (21:11)
[2023-06-20] MEDS: methylPREDNISolone Sod Succ 40 MG VIAL IVP SCH ×4 (00:20→21:06)
[2023-06-20] MEDS: Ipratropium/Albuterol 3 ML NEB NEB SCH ×6 (02:35→22:48)
[2023-06-20] MEDS: Furosemide 40 MG/4 ML VIAL SLOW IVP SCH (05:45)
[2023-06-20] MEDS ORDERED: LevoFLOXacin 750 mg/D5W 750 MG in Premix 1 BAG IVPB SCH (06:00)
[2023-06-20 06:53] LABS: #Monocytes 0.3 thou/uL (0.11-0.59); #Neutrophils 10.2 thou/uL (1.40-6.50); %Basophils 0.1 % (0.0-1.0); %Lymphocytes 3.2 % (21.0-51.0); %Monocytes 2.6 % (0.0-10.0); %Neutrophils 93.6 % (42.0-75.0); Hematocrit 27.8 % (36.0-47.0); Hemoglobin 8.3 g/dL (12.0-16.0); Mean Corpuscular HGB CONC 29.9 g/dL (32.0-36.0); Mean Corpuscular Hemoglobin 31.4 pg (27.0-31.0); Mean Corpuscular Volume 105.3 fl (78.0-98.0); Mean Platelet Volume 10.2 fL (7.4-10.4); Platelet Count 355 10x3/uL (130-400); RBC Distribution Width 15.8 % (11.5-14.5); Red Blood Cell (RBC) Count 2.64 mill/uL (4.20-5.40); White Blood Cell (WBC) Count 10.9 10x3/uL (4.8-10.8)
[2023-06-20 07:22] LABS: ALT (SGPT) 68 U/L (8-55); AST (SGOT) 28 U/L (5-34); Albumin 3.2 g/dL (3.4-4.8); Alkaline Phosphatase 96 U/L (40-110); Anion Gap 15 mmol/L (10-20); BUN (Urea Nitrogen) 33 mg/dL (9.8-20.1); Bilirubin, Total 0.4 mg/dL (0.2-1.2); Calc. Creatinine Clearance 40 mL/min (70-130); Calcium 9.4 mg/dL (7.8-10.44); Carbon Dioxide 31 mmol/L (23-31); Chloride 103 mmol/L (98-107); Estimated GFR 56; Globulin 3.2 g/dL (2.4-3.5); Glucose 230 mg/dL (83-110); Potassium 4.7 mmol/L (3.5-5.1); Protein, Total 6.4 g/dL (5.8-8.1); Sodium 144 mmol/L (136-145)
[2023-06-20] MEDS ORDERED: methylPREDNISolone Sod Succ 40 MG VIAL IVP SCH (08:00)
[2023-06-20] MEDS: Pantoprazole 40 MG VIAL IVP SCH (09:37)
[2023-06-20] MEDS: Insulin Glargine 30 UNITS/0.3 ML VIAL SC SCH (09:38)
[2023-06-20] MEDS: Clopidogrel Bisulfate 75 MG TAB PO SCH (09:39)
[2023-06-20] MEDS: Multivit, Therapeutic 1 TAB PO SCH (09:39)
[2023-06-20] MEDS: Ferrous Sulfate 325 MG TAB PO SCH (09:39)
[2023-06-20] MEDS: Aspirin 81 mg Enteric Coated Tablet PO SCH (09:39)
[2023-06-20] MEDS: Pentoxifylline 400 MG ER.TAB PO SCH ×3 (09:40→21:02)
[2023-06-20] MEDS: HumaLOG 300 UNITS/3 ML VIAL SC PRN ×2 (12:24→17:09)
[2023-06-20] MEDS: metFORMIN 500 MG TAB PO SCH (17:09)
[2023-06-20] MEDS: ALPRAZolam 0.25 MG TAB PO PRN (18:57)
[2023-06-20] MEDS: Latanoprost 0.005% Ophth Soln 2.5 ml Bottle EA EYE SCH (21:05)
[2023-06-20] MEDS: Atorvastatin Calcium 40 MG TAB PO SCH (21:10)
[2023-06-21] MEDS: Ipratropium/Albuterol 3 ML NEB NEB SCH ×6 (02:31→23:03)
[2023-06-21 04:42] LABS: #Monocytes 0.6 thou/uL (0.11-0.59); #Neutrophils 9.7 thou/uL (1.40-6.50); %Basophils 0.1 % (0.0-1.0); %Lymphocytes 4.6 % (21.0-51.0); %Monocytes 5.2 % (0.0-10.0); %Neutrophils 89.5 % (42.0-75.0); Hematocrit 26.6 % (36.0-47.0); Hemoglobin 7.9 g/dL (12.0-16.0); Mean Corpuscular HGB CONC 29.7 g/dL (32.0-36.0); Mean Corpuscular Hemoglobin 31.2 pg (27.0-31.0); Mean Corpuscular Volume 105.1 fl (78.0-98.0); Mean Platelet Volume 10.7 fL (7.4-10.4); Platelet Count 334 10x3/uL (130-400); RBC Distribution Width 15.7 % (11.5-14.5); Red Blood Cell (RBC) Count 2.53 mill/uL (4.20-5.40); White Blood Cell (WBC) Count 10.8 10x3/uL (4.8-10.8)
[2023-06-21 05:09] LABS: ALT (SGPT) 54 U/L (8-55); AST (SGOT) 19 U/L (5-34); Albumin 3.1 g/dL (3.4-4.8); Alkaline Phosphatase 93 U/L (40-110); Anion Gap 16 mmol/L (10-20); BUN (Urea Nitrogen) 40 mg/dL (9.8-20.1); Bilirubin, Total 0.4 mg/dL (0.2-1.2); Calc. Creatinine Clearance 38 mL/min (70-130); Calcium 9.5 mg/dL (7.8-10.44); Carbon Dioxide 30 mmol/L (23-31); Chloride 104 mmol/L (98-107); Estimated GFR 53; Globulin 3.1 g/dL (2.4-3.5); Glucose 187 mg/dL (83-110); Potassium 4.2 mmol/L (3.5-5.1); Protein, Total 6.2 g/dL (5.8-8.1); Sodium 146 mmol/L (136-145)
[2023-06-21] MEDS ORDERED: Furosemide 40 MG/4 ML VIAL SLOW IVP SCH (06:00)
[2023-06-21] MEDS: Multivit, Therapeutic 1 TAB PO SCH (10:09)
[2023-06-21] MEDS: Insulin Glargine 30 UNITS/0.3 ML VIAL SC SCH (10:10)
[2023-06-21] MEDS: Clopidogrel Bisulfate 75 MG TAB PO SCH (10:10)
[2023-06-21] MEDS: Aspirin 81 mg Enteric Coated Tablet PO SCH (10:10)
[2023-06-21] MEDS: Pentoxifylline 400 MG ER.TAB PO SCH ×3 (10:10→21:38)
[2023-06-21] MEDS: methylPREDNISolone Sod Succ 40 MG VIAL IVP SCH ×2 (10:12→21:38)
[2023-06-21] MEDS: Pantoprazole 40 MG VIAL IVP SCH (10:13)
[2023-06-21] MEDS: ALPRAZolam 0.25 MG TAB PO PRN ×2 (10:16→21:37)
[2023-06-21] MEDS: metFORMIN 500 MG TAB PO SCH (17:11)
[2023-06-21] MEDS: HumaLOG 300 UNITS/3 ML VIAL SC PRN ×2 (17:13→21:37)
[2023-06-21] MEDS: Atorvastatin Calcium 40 MG TAB PO SCH (21:37)
[2023-06-21] MEDS: Latanoprost 0.005% Ophth Soln 2.5 ml Bottle EA EYE SCH (21:37)
[2023-06-22] MEDS: Ipratropium/Albuterol 3 ML NEB NEB SCH ×6 (02:21→22:10)
[2023-06-22 04:34] LABS: #Monocytes 0.4 thou/uL (0.11-0.59); #Neutrophils 8.3 thou/uL (1.40-6.50); %Neutrophils 90.5 % (42.0-75.0); Hematocrit 25.6 % (36.0-47.0); Hemoglobin 7.7 g/dL (12.0-16.0); Mean Corpuscular HGB CONC 30.1 g/dL (32.0-36.0); Mean Corpuscular Hemoglobin 32.1 pg (27.0-31.0); Mean Corpuscular Volume 106.7 fl (78.0-98.0); Mean Platelet Volume 11.1 fL (7.4-10.4); Platelet Count 292 10x3/uL (130-400); RBC Distribution Width 15.8 % (11.5-14.5); White Blood Cell (WBC) Count 9.2 10x3/uL (4.8-10.8)
[2023-06-22 05:05] LABS: ALT (SGPT) 44 U/L (8-55); AST (SGOT) 16 U/L (5-34); Alkaline Phosphatase 83 U/L (40-110); Anion Gap 14 mmol/L (10-20); BUN (Urea Nitrogen) 35 mg/dL (9.8-20.1); Bilirubin, Total 0.4 mg/dL (0.2-1.2); Calc. Creatinine Clearance 45 mL/min (70-130); Carbon Dioxide 33 mmol/L (23-31); Chloride 101 mmol/L (98-107); Estimated GFR 64; Globulin 2.7 g/dL (2.4-3.5); Glucose 188 mg/dL (83-110); Protein, Total 5.7 g/dL (5.8-8.1); Sodium 143 mmol/L (136-145)
[2023-06-22] MEDS: Furosemide 40 MG/4 ML VIAL SLOW IVP SCH (05:13)
[2023-06-22] MEDS ORDERED: LevoFLOXacin 500 mg/D5W 500 MG in Premix 1 BAG IVPB SCH (06:00)
[2023-06-22] MEDS: Aspirin 81 mg Enteric Coated Tablet PO SCH (08:20)
[2023-06-22] MEDS: Multivit, Therapeutic 1 TAB PO SCH (08:20)
[2023-06-22] MEDS: Ferrous Sulfate 325 MG TAB PO SCH (08:20)
[2023-06-22] MEDS: Clopidogrel Bisulfate 75 MG TAB PO SCH (08:20)
[2023-06-22] MEDS: Pentoxifylline 400 MG ER.TAB PO SCH ×3 (08:20→21:09)
[2023-06-22] MEDS: methylPREDNISolone Sod Succ 40 MG VIAL IVP SCH ×2 (08:21→21:07)
[2023-06-22] MEDS: Pantoprazole 40 MG VIAL IVP SCH (08:23)
[2023-06-22] MEDS: Insulin Glargine 30 UNITS/0.3 ML VIAL SC SCH (08:25)
[2023-06-22] MEDS: HumaLOG 300 UNITS/3 ML VIAL SC PRN ×3 (11:35→21:23)
[2023-06-22] MEDS: metFORMIN 500 MG TAB PO SCH (16:08)
[2023-06-22] MEDS: Atorvastatin Calcium 40 MG TAB PO SCH (21:08)
[2023-06-22] MEDS: Latanoprost 0.005% Ophth Soln 2.5 ml Bottle EA EYE SCH (21:09)
[2023-06-23] MEDS: Ipratropium/Albuterol 3 ML NEB NEB SCH ×6 (04:16→23:25)
[2023-06-23] MEDS: Furosemide 40 MG/4 ML VIAL SLOW IVP SCH (05:00)
[2023-06-23 05:18] LABS: #Monocytes 0.4 thou/uL (0.11-0.59); %Eosinophils 0.1 % (0.0-10.0); %Lymphocytes 6.9 % (21.0-51.0); %Monocytes 3.9 % (0.0-10.0); %Neutrophils 88.7 % (42.0-75.0); Hematocrit 25.6 % (36.0-47.0); Hemoglobin 7.5 g/dL (12.0-16.0); Mean Corpuscular HGB CONC 29.3 g/dL (32.0-36.0); Mean Corpuscular Hemoglobin 31.4 pg (27.0-31.0); Mean Corpuscular Volume 107.1 fl (78.0-98.0); Mean Platelet Volume 11.1 fL (7.4-10.4); Platelet Count 268 10x3/uL (130-400); RBC Distribution Width 15.9 % (11.5-14.5); Red Blood Cell (RBC) Count 2.39 mill/uL (4.20-5.40); White Blood Cell (WBC) Count 10.1 10x3/uL (4.8-10.8)
[2023-06-23 05:51] LABS: ALT (SGPT) 39 U/L (8-55); AST (SGOT) 20 U/L (5-34); Alkaline Phosphatase 77 U/L (40-110); Anion Gap 11 mmol/L (10-20); BUN (Urea Nitrogen) 38 mg/dL (9.8-20.1); Bilirubin, Total 0.4 mg/dL (0.2-1.2); Calc. Creatinine Clearance 45 mL/min (70-130); Calcium 9.1 mg/dL (7.8-10.44); Carbon Dioxide 33 mmol/L (23-31); Chloride 101 mmol/L (98-107); Estimated GFR 65; Globulin 2.5 g/dL (2.4-3.5); Glucose 241 mg/dL (83-110); Potassium 5.3 mmol/L (3.5-5.1); Protein, Total 5.5 g/dL (5.8-8.1); Sodium 140 mmol/L (136-145)
[2023-06-23] MEDS: HumaLOG 300 UNITS/3 ML VIAL SC PRN ×2 (06:26→17:01)
[2023-06-23] MEDS: Pentoxifylline 400 MG ER.TAB PO SCH ×3 (08:56→20:11)
[2023-06-23] MEDS: Multivit, Therapeutic 1 TAB PO SCH (08:56)
[2023-06-23] MEDS: Clopidogrel Bisulfate 75 MG TAB PO SCH (08:56)
[2023-06-23] MEDS: Aspirin 81 mg Enteric Coated Tablet PO SCH (08:56)
[2023-06-23] MEDS ORDERED: Insulin Glargine 30 UNITS/0.3 ML VIAL SC SCH ×2 (09:00)
[2023-06-23] MEDS: methylPREDNISolone Sod Succ 40 MG VIAL IVP SCH (09:04)
[2023-06-23] MEDS: metFORMIN 500 MG TAB PO SCH (17:01)
[2023-06-23] MEDS: Latanoprost 0.005% Ophth Soln 2.5 ml Bottle EA EYE SCH (20:11)
[2023-06-23] MEDS: Atorvastatin Calcium 40 MG TAB PO SCH (20:11)
[2023-06-23] MEDS: predniSONE 20 MG TAB PO SCH (20:12)
[2023-06-24] MEDS: Ipratropium/Albuterol 3 ML NEB NEB SCH ×6 (03:11→23:19)
[2023-06-24] MEDS: LevoFLOXacin 500 MG TAB PO SCH (04:52)
[2023-06-24 05:11] LABS: #Monocytes 0.4 thou/uL (0.11-0.59); #Neutrophils 9.8 thou/uL (1.40-6.50); %Basophils 0.1 % (0.0-1.0); %Eosinophils 0.2 % (0.0-10.0); %Lymphocytes 4.6 % (21.0-51.0); %Monocytes 3.7 % (0.0-10.0); %Neutrophils 90.7 % (42.0-75.0); Hematocrit 27.5 % (36.0-47.0); Hemoglobin 8.2 g/dL (12.0-16.0); Mean Corpuscular HGB CONC 29.8 g/dL (32.0-36.0); Mean Corpuscular Hemoglobin 31.9 pg (27.0-31.0); Mean Platelet Volume 11.3 fL (7.4-10.4); Platelet Count 272 10x3/uL (130-400); RBC Distribution Width 16.1 % (11.5-14.5); Red Blood Cell (RBC) Count 2.57 mill/uL (4.20-5.40); White Blood Cell (WBC) Count 10.8 10x3/uL (4.8-10.8)
[2023-06-24 05:41] LABS: ALT (SGPT) 45 U/L (8-55); AST (SGOT) 25 U/L (5-34); Albumin 3.2 g/dL (3.4-4.8); Alkaline Phosphatase 88 U/L (40-110); Anion Gap 12 mmol/L (10-20); BUN (Urea Nitrogen) 36 mg/dL (9.8-20.1); Bilirubin, Total 0.5 mg/dL (0.2-1.2); Calc. Creatinine Clearance 46 mL/min (70-130); Calcium 9.2 mg/dL (7.8-10.44); Carbon Dioxide 32 mmol/L (23-31); Chloride 100 mmol/L (98-107); Estimated GFR 67; Globulin 2.8 g/dL (2.4-3.5); Glucose 300 mg/dL (83-110); Potassium 5.5 mmol/L (3.5-5.1); Sodium 138 mmol/L (136-145)
[2023-06-24] MEDS ORDERED: LevoFLOXacin 500 mg/D5W 500 MG in Premix 1 BAG IVPB SCH (06:00)
[2023-06-24] MEDS: HumaLOG 300 UNITS/3 ML VIAL SC PRN ×3 (06:21→17:11)
[2023-06-24] MEDS: Clopidogrel Bisulfate 75 MG TAB PO SCH (07:52)
[2023-06-24] MEDS: Furosemide 40 MG TAB PO SCH (07:53)
[2023-06-24] MEDS: Pentoxifylline 400 MG ER.TAB PO SCH ×3 (07:53→20:07)
[2023-06-24] MEDS: Multivit, Therapeutic 1 TAB PO SCH (07:53)
[2023-06-24] MEDS: predniSONE 20 MG TAB PO SCH ×2 (07:54→20:08)
[2023-06-24] MEDS: Ferrous Sulfate 325 MG TAB PO SCH (07:54)
[2023-06-24] MEDS: Aspirin 81 mg Enteric Coated Tablet PO SCH (07:54)
[2023-06-24] MEDS ORDERED: Insulin Glargine 30 UNITS/0.3 ML VIAL SC SCH ×2 (09:00→21:00)
[2023-06-24 11:19] LABS: Anion Gap 13 mmol/L (10-20); BUN (Urea Nitrogen) 33 mg/dL (9.8-20.1); Calc. Creatinine Clearance 46 mL/min (70-130); Calcium 9.5 mg/dL (7.8-10.44); Carbon Dioxide 31 mmol/L (23-31); Chloride 102 mmol/L (98-107); Estimated GFR 70; Glucose 218 mg/dL (83-110); Potassium 4.7 mmol/L (3.5-5.1); Sodium 141 mmol/L (136-145)
[2023-06-24] MEDS ORDERED: HumaLOG 300 UNITS/3 ML VIAL SC SCH (12:30)
[2023-06-24] MEDS: HumaLOG 300 UNITS/3 ML VIAL SC SCH ×2 (17:11→18:29)
[2023-06-24] MEDS: metFORMIN 500 MG TAB PO SCH (17:11)
[2023-06-24] MEDS: Atorvastatin Calcium 40 MG TAB PO SCH (20:07)
[2023-06-24] MEDS: Latanoprost 0.005% Ophth Soln 2.5 ml Bottle EA EYE SCH (20:07)
[2023-06-25] MEDS: Ipratropium/Albuterol 3 ML NEB NEB SCH ×6 (02:54→23:59)
[2023-06-25] MEDS: LevoFLOXacin 500 MG TAB PO SCH (05:35)
[2023-06-25] MEDS: HumaLOG 300 UNITS/3 ML VIAL SC PRN ×4 (05:44→20:46)
[2023-06-25 06:58] LABS: #Eosinphils 0.1 thou/uL (0.0-0.7); #Monocytes 0.5 thou/uL (0.11-0.59); #Neutrophils 10.4 thou/uL (1.40-6.50); %Basophils 0.1 % (0.0-1.0); %Eosinophils 0.5 % (0.0-10.0); %Lymphocytes 4.9 % (21.0-51.0); %Monocytes 4.2 % (0.0-10.0); %Neutrophils 89.4 % (42.0-75.0); Hematocrit 27.6 % (36.0-47.0); Hemoglobin 8.2 g/dL (12.0-16.0); Mean Corpuscular HGB CONC 29.7 g/dL (32.0-36.0); Mean Corpuscular Hemoglobin 31.5 pg (27.0-31.0); Mean Corpuscular Volume 106.2 fl (78.0-98.0); Mean Platelet Volume 11.3 fL (7.4-10.4); Platelet Count 271 10x3/uL (130-400); RBC Distribution Width 16.6 % (11.5-14.5); White Blood Cell (WBC) Count 11.6 10x3/uL (4.8-10.8)
[2023-06-25 07:26] LABS: ALT (SGPT) 40 U/L (8-55); AST (SGOT) 18 U/L (5-34); Albumin 3.1 g/dL (3.4-4.8); Alkaline Phosphatase 88 U/L (40-110); Anion Gap 14 mmol/L (10-20); BUN (Urea Nitrogen) 34 mg/dL (9.8-20.1); Bilirubin, Total 0.4 mg/dL (0.2-1.2); Calc. Creatinine Clearance 43 mL/min (70-130); Calcium 8.8 mg/dL (7.8-10.44); Carbon Dioxide 32 mmol/L (23-31); Chloride 103 mmol/L (98-107); Estimated GFR 62; Globulin 2.8 g/dL (2.4-3.5); Glucose 181 mg/dL (83-110); Potassium 4.2 mmol/L (3.5-5.1); Protein, Total 5.9 g/dL (5.8-8.1); Sodium 145 mmol/L (136-145)
[2023-06-25] MEDS: Clopidogrel Bisulfate 75 MG TAB PO SCH (08:36)
[2023-06-25] MEDS: Multivit, Therapeutic 1 TAB PO SCH (08:36)
[2023-06-25] MEDS: Pentoxifylline 400 MG ER.TAB PO SCH ×3 (08:36→20:44)
[2023-06-25] MEDS: Furosemide 40 MG TAB PO SCH (08:36)
[2023-06-25] MEDS: predniSONE 20 MG TAB PO SCH (08:36)
[2023-06-25] MEDS: Aspirin 81 mg Enteric Coated Tablet PO SCH (08:36)
[2023-06-25] MEDS: HumaLOG 300 UNITS/3 ML VIAL SC SCH ×3 (08:38→18:19)
[2023-06-25] MEDS: metFORMIN 500 MG TAB PO SCH (18:19)
[2023-06-25] MEDS: Atorvastatin Calcium 40 MG TAB PO SCH (20:44)
[2023-06-25] MEDS ORDERED: Insulin Glargine 30 UNITS/0.3 ML VIAL SC SCH (21:00)
[2023-06-25] MEDS: Latanoprost 0.005% Ophth Soln 2.5 ml Bottle EA EYE SCH (21:01)
[2023-06-26] MEDS: Ipratropium/Albuterol 3 ML NEB NEB SCH ×3 (03:06→11:07)
[2023-06-26] MEDS: LevoFLOXacin 500 MG TAB PO SCH (05:41)
[2023-06-26 06:44] LABS: #Eosinphils 0.2 thou/uL (0.0-0.7); #Monocytes 0.8 thou/uL (0.11-0.59); #Neutrophils 6.5 thou/uL (1.40-6.50); %Eosinophils 1.7 % (0.0-10.0); %Lymphocytes 18.7 % (21.0-51.0); %Monocytes 8.8 % (0.0-10.0); %Neutrophils 69.5 % (42.0-75.0); Hematocrit 24.4 % (36.0-47.0); Hemoglobin 7.4 g/dL (12.0-16.0); Mean Corpuscular HGB CONC 30.3 g/dL (32.0-36.0); Mean Corpuscular Hemoglobin 32.7 pg (27.0-31.0); Mean Platelet Volume 10.7 fL (7.4-10.4); Platelet Count 229 10x3/uL (130-400); RBC Distribution Width 16.6 % (11.5-14.5); Red Blood Cell (RBC) Count 2.26 mill/uL (4.20-5.40); White Blood Cell (WBC) Count 9.4 10x3/uL (4.8-10.8)
[2023-06-26 07:15] LABS: ALT (SGPT) 32 U/L (8-55); AST (SGOT) 15 U/L (5-34); Albumin 2.9 g/dL (3.4-4.8); Alkaline Phosphatase 67 U/L (40-110); Anion Gap 11 mmol/L (10-20); BUN (Urea Nitrogen) 34 mg/dL (9.8-20.1); Bilirubin, Total 0.3 mg/dL (0.2-1.2); Calc. Creatinine Clearance 49 mL/min (70-130); Calcium 8.4 mg/dL (7.8-10.44); Carbon Dioxide 30 mmol/L (23-31); Chloride 103 mmol/L (98-107); Estimated GFR 73; Globulin 2.2 g/dL (2.4-3.5); Glucose 96 mg/dL (83-110); Potassium 3.6 mmol/L (3.5-5.1); Protein, Total 5.1 g/dL (5.8-8.1); Sodium 140 mmol/L (136-145)
[2023-06-26] MEDS: Clopidogrel Bisulfate 75 MG TAB PO SCH (08:19)
[2023-06-26] MEDS: Ferrous Sulfate 325 MG TAB PO SCH (08:19)
[2023-06-26] MEDS: Pentoxifylline 400 MG ER.TAB PO SCH (08:19)
[2023-06-26] MEDS: Furosemide 40 MG TAB PO SCH (08:19)
[2023-06-26] MEDS: Aspirin 81 mg Enteric Coated Tablet PO SCH (08:19)
[2023-06-26] MEDS: Multivit, Therapeutic 1 TAB PO SCH (08:20)
[2023-06-26] MEDS: HumaLOG 300 UNITS/3 ML VIAL SC SCH ×2 (08:25→11:54)
[2023-06-26 08:26] VITALS: TEMP 98.4
[2023-06-26] MEDS ORDERED: Insulin Glargine 30 UNITS/0.3 ML VIAL SC SCH (08:32)
[2023-06-26] MEDS ORDERED: predniSONE 20 MG TAB PO SCH (09:00)
[2023-06-26 11:43] VITALS: BP 122/66
[2023-06-27] MEDS ORDERED: predniSONE 20 MG TAB PO SCH (09:00)
== END 2023-06-26 12:28 | disposition home health service (06) | DRG 871 ==
LOC: ERS 01:09 → ERHOLD 04:51 → IMCU/EMU 09:52 → T4-B 06-24 12:05
PROVIDERS: ADMIT Student in an Organized Health Care Education/Training Program; ATTEND Student in an Organized Health Care Education/Training Program
PROC: 3E03329 Introduction of Other Anti-infective into Peripheral Vein, Percutaneous Approach (ICD-10-PCS; principal; 2023-06-18)
PROC: 5A09457 Assistance with Respiratory Ventilation, 24-96 Consecutive Hours, Continuous Positive Airway Pressure (ICD-10-PCS; 2023-06-18)
DX: A41.9 Sepsis, unspecified organism (principal); I50.33 Acute on chronic diastolic (congestive) heart failure; J18.9 Pneumonia, unspecified organism; J96.21 Acute and chronic respiratory failure with hypoxia; J96.22 Acute and chronic respiratory failure with hypercapnia; J44.1 Chronic obstructive pulmonary disease with (acute) exacerbation; J44.0 Chronic obstructive pulmonary disease with (acute) lower respiratory infection; K52.1 Toxic gastroenteritis and colitis; I13.0 Hypertensive heart and chronic kidney disease with heart failure and stage 1 through stage 4 chronic kidney disease, or unspecified chronic kidney disease; R65.20 Severe sepsis without septic shock; I25.10 Atherosclerotic heart disease of native coronary artery without angina pectoris; E78.5 Hyperlipidemia, unspecified; N18.31 Chronic kidney disease, stage 3a; E11.22 Type 2 diabetes mellitus with diabetic chronic kidney disease; K21.9 Gastro-esophageal reflux disease without esophagitis; D75.839 Thrombocytosis, unspecified; T36.8X5A Adverse effect of other systemic antibiotics, initial encounter; E11.65 Type 2 diabetes mellitus with hyperglycemia; D63.1 Anemia in chronic kidney disease; D47.2 Monoclonal gammopathy; Z20.822 Contact with and (suspected) exposure to COVID-19; E87.5 Hyperkalemia; E11.51 Type 2 diabetes mellitus with diabetic peripheral angiopathy without gangrene; Z91.040 Latex allergy status; Z79.51 Long term (current) use of inhaled steroids; Z79.899 Other long term (current) drug therapy; Z79.82 Long term (current) use of aspirin; Z79.4 Long term (current) use of insulin; Z95.5 Presence of coronary angioplasty implant and graft; Z79.84 Long term (current) use of oral hypoglycemic drugs; Z87.891 Personal history of nicotine dependence
CPT/HCPCS: 36415; 36416; 51701; 71045; 80053; 80061; 80074; 81001; 83605; 83690; 83735; 83880; 84145; 84443; 85025; 87040; 87081; 93005; 94640; 94660; 96365; 96366; 96375; C9113; J1650; J1815; J1940; J1956; J2060; J2920; J2930; J3475; J7512; J7611; J7620

== ENCOUNTER 2023-07-07 10:14 | Inpatient (IN) | payer MEDICARE ==
[2023-07-07 10:51] LABS: #Eosinphils 0.1 thou/uL (0.0-0.7); #Monocytes 0.6 thou/uL (0.11-0.59); #Neutrophils 5.9 thou/uL (1.40-6.50); %Basophils 0.4 % (0.0-1.0); %Eosinophils 0.9 % (0.0-10.0); %Lymphocytes 9.9 % (21.0-51.0); %Monocytes 7.9 % (0.0-10.0); %Neutrophils 80.4 % (42.0-75.0); Hematocrit 29.9 % (36.0-47.0); Hemoglobin 8.9 g/dL (12.0-16.0); Mean Corpuscular HGB CONC 29.8 g/dL (32.0-36.0); Mean Corpuscular Volume 110.7 fl (78.0-98.0); Platelet Count 198 10x3/uL (130-400); RBC Distribution Width 15.9 % (11.5-14.5); White Blood Cell (WBC) Count 7.4 10x3/uL (4.8-10.8)
[2023-07-07] MEDS ORDERED: Ipratropium/Albuterol 3 ML NEB ONE ×2 (11:02→12:29)
[2023-07-07 11:15] LABS: Base Excess 3.3 mEq/L (-2.0 to +3.0); Calcium, Ionized (venous) 1.01 mmol/L (1.16-1.32); Chloride (VBG) 108 mmol/L (98-106); Hematocrit-VBG 30 % (36.0-47.0); Hemoglobin (Hb) 10.1 g/dL (11.7-16.1); Potassium (VBG) 3.66 mmol/L (3.70-5.30); Sodium 138 mmol/L (133-146); pH (venous) 7.478 (7.32-7.43)
[2023-07-07 11:21] LABS: ALT (SGPT) 70 U/L (8-55); AST (SGOT) 46 U/L (5-34); Albumin 3.5 g/dL (3.4-4.8); Alkaline Phosphatase 118 U/L (40-110); Anion Gap 10 mmol/L (10-20); BUN (Urea Nitrogen) 18 mg/dL (9.8-20.1); Bilirubin, Total 0.4 mg/dL (0.2-1.2); Calc. Creatinine Clearance 0 mL/min (70-130); Carbon Dioxide 29 mmol/L (23-31); Chloride 108 mmol/L (98-107); Estimated GFR 69; Globulin 2.6 g/dL (2.4-3.5); Glucose 116 mg/dL (83-110); Lipase 37 U/L (8-78); Potassium 3.7 mmol/L (3.5-5.1); Protein, Total 6.1 g/dL (5.8-8.1); Sodium 143 mmol/L (136-145)
[2023-07-07 11:28] LABS: Anisocytosis SLIGHT = 6-15 cells HPF (0-5); CellaVision Operator ID lab.dlt; Hypochromia SLIGHT = 6-15 cells HPF (0-5); Macrocytosis SLIGHT = 6-15 cells HPF (0-5); Ovalocytes SLIGHT = 2-5 cells HPF (0-1); Platelet Adequacy Comment Platelets Normal; Poikilocytosis SLIGHT = 6-15 cells HPF (0-5); Polychromasia SLIGHT = 2-3 cells HPF (0-2); Schistocytes SLIGHT = 2-5 cells HPF (0-1)
[2023-07-07] MEDS ORDERED: cefTRIAXone (ROCEPHIN) 2 GM VIAL ONE (11:49)
[2023-07-07] MEDS ORDERED: Sodium Chloride 0.9% 100 ML ONE (11:50)
[2023-07-07 12:14] LABS: Troponin I 0.034 ng/mL (< 0.028)
[2023-07-07] MEDS ORDERED: Azithromycin 500 MG VIAL ONE (12:54)
[2023-07-07] MEDS ORDERED: Dextrose 5% in Water 1,000 ML IV PRN (13:19)
[2023-07-07] MEDS ORDERED: Acetaminophen 325 MG TAB PO PRN (13:19)
[2023-07-07] MEDS ORDERED: Dextrose 50% Abboject 50 ML SYRINGE SLOW IVP PRN (13:19)
[2023-07-07] MEDS ORDERED: Glucagon 1 MG/ML KIT IM PRN (13:19)
[2023-07-07] MEDS ORDERED: Dextrose 10% in Water 1,000 ML IV SCH (13:45)
[2023-07-07] MEDS ORDERED: predniSONE 20 MG TAB PO SCH (14:00)
[2023-07-07] MEDS: Ipratropium/Albuterol 3 ML NEB NEB SCH ×3 (14:05→23:03)
[2023-07-07 14:18] LABS: Troponin I 0.034 ng/mL (< 0.028)
[2023-07-07] MEDS ORDERED: Furosemide 40 MG/4 ML VIAL ONE (14:31)
[2023-07-07 14:34] LABS: Actual Bicarbonate (HCO3a) 26.9 mEq/L (22-28); Analyzer IN Cardio OR; Base Excess (BEa) -1.9 mEq/L (-2.0 to +3.0); Calcium, Ionized (arterial) 1.19 mmol/L (1.12-1.30); Carboxyhemoglobin (COHb) 0.8 gm% (0.0-3.0); Hematocrit-ABG 32 % (36.0-47.0); Hemoglobin (Hb) 10.8 g/dL (12.0-16.0); O2 Tension (PaO2), arterial 82.2 mmHg (> 60.0); pH, Arterial 7.212 (7.35-7.45)
[2023-07-07] MEDS ORDERED: Furosemide 40 MG/4 ML VIAL SLOW IVP SCH (14:45)
[2023-07-07 15:14] VITALS: BMI 27.1
[2023-07-07] MEDS ORDERED: Magnesium 2 GM/50 ML(in water) 2 GM in Premix 1 BAG IVPB SCH (15:45)
[2023-07-07 16:13] LABS: Actual Bicarbonate (HCO3a) 27.8 mEq/L (22-28); Base Excess (BEa) 2.3 mEq/L (-2.0 to +3.0); CO2 Tension 47.7 mmHg (35.0-45.0); Calcium, Ionized (arterial) 1.16 mmol/L (1.12-1.30); Carboxyhemoglobin (COHb) 0.9 gm% (0.0-3.0); Hematocrit-ABG 29 % (36.0-47.0); Hemoglobin (Hb) 9.8 g/dL (12.0-16.0); O2 Tension (PaO2), arterial 85.4 mmHg (> 60.0); Potassium - ABG Lab 3.83 mmol/L (3.70-5.30); pH, Arterial 7.384 (7.35-7.45)
[2023-07-07 16:14] LABS: Puncture Site LBA
[2023-07-07 16:15] LABS: ALV-art Gradient 175.825 mmHg (0-20)
[2023-07-07 16:28] LABS: SARS-CoV-2 NAA Rapid Test Not Detected (NotDetected)
[2023-07-07] MEDS: methylPREDNISolone Sod Succ 40 MG VIAL IVP SCH (18:09)
[2023-07-07] MEDS: Budesonide 0.5 MG/2 ML NEB NEB SCH (19:06)
[2023-07-07 19:41] LABS: Troponin I 0.061 ng/mL (< 0.028)
[2023-07-08] MEDS: methylPREDNISolone Sod Succ 40 MG VIAL IVP SCH ×4 (00:01→17:13)
[2023-07-08 00:34] LABS: Troponin I 0.086 ng/mL (< 0.028)
[2023-07-08] MEDS: Ipratropium/Albuterol 3 ML NEB NEB SCH ×6 (02:47→22:50)
[2023-07-08 03:24] LABS: Bilirubin Negative (Negative); Blood, Urine Negative (Negative); Glucose, Urine (Dipstick) Negative (Negative); Ketone, Urine Negative (Negative); Leukocyte Negative (Negative); Nitrite Negative (Negative); Protein, Urine (Dipstick) Negative (Neg-Trace); Urobilinogen 0.2 mg/dL (Less than 2); pH, Urine 5.5 (5.0-9.0)
[2023-07-08 03:25] LABS: Clarity Clear (Clear)
[2023-07-08 03:34] LABS: RBC/HPF 0-3 HPF (0-3); Squamous Epithelial 0-3 HPF (0-3); WBC/HPF 0-3 HPF (0-3)
[2023-07-08 03:36] LABS: Bacteria/HPF 1+ HPF (None Seen)
[2023-07-08 05:32] LABS: #Monocytes 0.1 thou/uL (0.11-0.59); #Neutrophils 6.7 thou/uL (1.40-6.50); %Basophils 0.1 % (0.0-1.0); %Lymphocytes 4.2 % (21.0-51.0); %Monocytes 1.1 % (0.0-10.0); %Neutrophils 93.9 % (42.0-75.0); Hematocrit 27.1 % (36.0-47.0); Mean Corpuscular HGB CONC 29.5 g/dL (32.0-36.0); Mean Corpuscular Hemoglobin 32.4 pg (27.0-31.0); Mean Corpuscular Volume 109.7 fl (78.0-98.0); Mean Platelet Volume 11.3 fL (7.4-10.4); Platelet Count 174 10x3/uL (130-400); RBC Distribution Width 15.6 % (11.5-14.5); Red Blood Cell (RBC) Count 2.47 mill/uL (4.20-5.40); White Blood Cell (WBC) Count 7.2 10x3/uL (4.8-10.8)
[2023-07-08 06:07] LABS: Troponin I 0.054 ng/mL (< 0.028)
[2023-07-08] MEDS: HumaLOG 300 UNITS/3 ML VIAL SC PRN ×4 (06:15→21:25)
[2023-07-08 06:18] LABS: ALT (SGPT) 75 U/L (8-55); AST (SGOT) 37 U/L (5-34); Albumin 2.9 g/dL (3.4-4.8); Alkaline Phosphatase 102 U/L (40-110); Anion Gap 16 mmol/L (10-20); BUN (Urea Nitrogen) 22 mg/dL (9.8-20.1); Bilirubin, Total 0.3 mg/dL (0.2-1.2); Calc. Creatinine Clearance 46 mL/min (70-130); Calcium 8.4 mg/dL (7.8-10.44); Carbon Dioxide 25 mmol/L (23-31); Chloride 105 mmol/L (98-107); Estimated GFR 63; Globulin 2.5 g/dL (2.4-3.5); Potassium 4.5 mmol/L (3.5-5.1); Protein, Total 5.4 g/dL (5.8-8.1); Sodium 141 mmol/L (136-145)
[2023-07-08 06:26] LABS: Glucose 436 mg/dL (83-110)
[2023-07-08] MEDS: Budesonide 0.5 MG/2 ML NEB NEB SCH ×2 (06:41→18:17)
[2023-07-08 08:39] LABS: Hemoglobin A1c 5.6 % (4.0-6.0)
[2023-07-08] MEDS ORDERED: predniSONE 20 MG TAB PO SCH (09:00)
[2023-07-08] MEDS ORDERED: Famotidine/PF 20 mg/2ml Vial SLOW IVP SCH (09:00)
[2023-07-08] MEDS ORDERED: Furosemide 40 MG TAB PO SCH (11:34)
[2023-07-08] MEDS: cefTRIAXone\\ROCEPHIN 1 GM in Sodium Chloride 0.9% 100 ML IVPB SCH (12:09)
[2023-07-08] MEDS: Furosemide 40 MG TAB PO SCH (12:09)
[2023-07-08] MEDS: Ferrous Sulfate 325 MG TAB PO SCH (12:10)
[2023-07-08] MEDS: Azithromycin 500 MG in Sodium Chloride 0.9% 250 ML 250 ML IVPB SCH (14:05)
[2023-07-08] MEDS: Pentoxifylline 400 MG ER.TAB PO SCH ×2 (15:18→21:26)
[2023-07-08] MEDS ORDERED: Lorazepam 0.5 MG TAB PO SCH (18:20)
[2023-07-08] MEDS: Latanoprost 0.005% Ophth Soln 2.5 ml Bottle EA EYE SCH (21:25)
[2023-07-08] MEDS: Atorvastatin Calcium 40 MG TAB PO SCH (21:26)
[2023-07-09] MEDS: methylPREDNISolone Sod Succ 40 MG VIAL IVP SCH ×4 (01:02→17:32)
[2023-07-09] MEDS: Ipratropium/Albuterol 3 ML NEB NEB SCH ×6 (03:46→22:44)
[2023-07-09] MEDS: Budesonide 0.5 MG/2 ML NEB NEB SCH ×2 (06:57→19:05)
[2023-07-09] MEDS: Aspirin 81 mg Enteric Coated Tablet PO SCH (08:09)
[2023-07-09] MEDS: Famotidine 20 MG TAB PO SCH (08:09)
[2023-07-09] MEDS: Multivit, Therapeutic 1 TAB PO SCH (08:10)
[2023-07-09] MEDS: Pentoxifylline 400 MG ER.TAB PO SCH ×3 (08:10→20:26)
[2023-07-09] MEDS: Furosemide 40 MG TAB PO SCH (08:10)
[2023-07-09] MEDS: Clopidogrel Bisulfate 75 MG TAB PO SCH (08:10)
[2023-07-09] MEDS: HumaLOG 300 UNITS/3 ML VIAL SC PRN ×4 (08:14→21:38)
[2023-07-09 08:17] LABS: ALT (SGPT) 77 U/L (8-55); AST (SGOT) 45 U/L (5-34); Albumin 3.3 g/dL (3.4-4.8); Alkaline Phosphatase 103 U/L (40-110); Anion Gap 23 mmol/L (10-20); BUN (Urea Nitrogen) 28 mg/dL (9.8-20.1); Bilirubin, Total 0.4 mg/dL (0.2-1.2); Calc. Creatinine Clearance 45 mL/min (70-130); Calcium 8.8 mg/dL (7.8-10.44); Carbon Dioxide 16 mmol/L (23-31); Chloride 108 mmol/L (98-107); Estimated GFR 61; Glucose 230 mg/dL (83-110); Protein, Total 6.3 g/dL (5.8-8.1); Sodium 141 mmol/L (136-145)
[2023-07-09 08:29] LABS: #Monocytes 0.2 thou/uL (0.11-0.59); %Basophils 0.1 % (0.0-1.0); %Lymphocytes 5.9 % (21.0-51.0); %Monocytes 1.8 % (0.0-10.0); %Neutrophils 91.7 % (42.0-75.0); Hematocrit 32.3 % (36.0-47.0); Hemoglobin 9.7 g/dL (12.0-16.0); Mean Corpuscular Hemoglobin 33.1 pg (27.0-31.0); Mean Corpuscular Volume 110.2 fl (78.0-98.0); Mean Platelet Volume 11.7 fL (7.4-10.4); Platelet Count 164 10x3/uL (130-400); RBC Distribution Width 15.7 % (11.5-14.5); Red Blood Cell (RBC) Count 2.93 mill/uL (4.20-5.40); White Blood Cell (WBC) Count 8.7 10x3/uL (4.8-10.8)
[2023-07-09] MEDS ORDERED: CYANOCOBALAMIN 50 MCG PO SCH (09:00)
[2023-07-09] MEDS: cefTRIAXone\\ROCEPHIN 1 GM in Sodium Chloride 0.9% 100 ML IVPB SCH (11:31)
[2023-07-09 11:54] LABS: Anion Gap 16 mmol/L (10-20); BUN (Urea Nitrogen) 30 mg/dL (9.8-20.1); Calc. Creatinine Clearance 43 mL/min (70-130); Calcium 9.2 mg/dL (7.8-10.44); Carbon Dioxide 25 mmol/L (23-31); Chloride 105 mmol/L (98-107); Estimated GFR 58; Glucose 292 mg/dL (83-110); Potassium 4.5 mmol/L (3.5-5.1); Sodium 141 mmol/L (136-145)
[2023-07-09] MEDS: Azithromycin 500 MG in Sodium Chloride 0.9% 250 ML 250 ML IVPB SCH (12:21)
[2023-07-09] MEDS ORDERED: Lorazepam 0.5 MG TAB PO SCH (18:23)
[2023-07-09] MEDS: Atorvastatin Calcium 40 MG TAB PO SCH (20:26)
[2023-07-09] MEDS: Latanoprost 0.005% Ophth Soln 2.5 ml Bottle EA EYE SCH (20:27)
[2023-07-10] MEDS: methylPREDNISolone Sod Succ 40 MG VIAL IVP SCH ×3 (00:42→17:42)
[2023-07-10] MEDS: Ipratropium/Albuterol 3 ML NEB NEB SCH ×6 (02:59→23:06)
[2023-07-10] MEDS: HumaLOG 300 UNITS/3 ML VIAL SC PRN ×3 (05:10→20:20)
[2023-07-10] MEDS: Budesonide 0.5 MG/2 ML NEB NEB SCH ×2 (07:41→18:21)
[2023-07-10] MEDS: Aspirin 81 mg Enteric Coated Tablet PO SCH (07:58)
[2023-07-10] MEDS: Famotidine 20 MG TAB PO SCH (07:58)
[2023-07-10] MEDS: Clopidogrel Bisulfate 75 MG TAB PO SCH (07:58)
[2023-07-10] MEDS: Pentoxifylline 400 MG ER.TAB PO SCH ×3 (07:59→20:20)
[2023-07-10] MEDS: Ferrous Sulfate 325 MG TAB PO SCH (07:59)
[2023-07-10] MEDS: Multivit, Therapeutic 1 TAB PO SCH (07:59)
[2023-07-10] MEDS: Furosemide 40 MG TAB PO SCH (07:59)
[2023-07-10 08:01] LABS: #Monocytes 0.2 thou/uL (0.11-0.59); %Basophils 0.1 % (0.0-1.0); %Neutrophils 93.3 % (42.0-75.0); Hematocrit 29.7 % (36.0-47.0); Hemoglobin 8.9 g/dL (12.0-16.0); Mean Corpuscular Hemoglobin 32.4 pg (27.0-31.0); Mean Platelet Volume 10.8 fL (7.4-10.4); Platelet Count 205 10x3/uL (130-400); RBC Distribution Width 15.7 % (11.5-14.5); Red Blood Cell (RBC) Count 2.75 mill/uL (4.20-5.40); White Blood Cell (WBC) Count 8.6 10x3/uL (4.8-10.8)
[2023-07-10 08:31] LABS: ALT (SGPT) 59 U/L (8-55); AST (SGOT) 14 U/L (5-34); Albumin 3.6 g/dL (3.4-4.8); Alkaline Phosphatase 98 U/L (40-110); Anion Gap 12 mmol/L (10-20); BUN (Urea Nitrogen) 31 mg/dL (9.8-20.1); Bilirubin, Total 0.5 mg/dL (0.2-1.2); Calc. Creatinine Clearance 43 mL/min (70-130); Calcium 9.7 mg/dL (7.8-10.44); Carbon Dioxide 27 mmol/L (23-31); Chloride 106 mmol/L (98-107); Estimated GFR 59; Globulin 2.5 g/dL (2.4-3.5); Glucose 189 mg/dL (83-110); Potassium 4.4 mmol/L (3.5-5.1); Protein, Total 6.1 g/dL (5.8-8.1); Sodium 141 mmol/L (136-145)
[2023-07-10] MEDS: Insulin Glargine 30 UNITS/0.3 ML VIAL SC SCH (09:15)
[2023-07-10] MEDS: cefTRIAXone\\ROCEPHIN 1 GM in Sodium Chloride 0.9% 100 ML IVPB SCH (13:22)
[2023-07-10] MEDS: Azithromycin 500 MG in Sodium Chloride 0.9% 250 ML 250 ML IVPB SCH (13:24)
[2023-07-10] MEDS ORDERED: Lorazepam 0.5 MG TAB PO SCH (17:45)
[2023-07-10] MEDS: Atorvastatin Calcium 40 MG TAB PO SCH (20:20)
[2023-07-10] MEDS: Latanoprost 0.005% Ophth Soln 2.5 ml Bottle EA EYE SCH (21:06)
[2023-07-11] MEDS: HumaLOG 300 UNITS/3 ML VIAL SC PRN ×5 (01:05→18:19)
[2023-07-11] MEDS: Ipratropium/Albuterol 3 ML NEB NEB SCH ×6 (02:20→22:25)
[2023-07-11] MEDS: methylPREDNISolone Sod Succ 40 MG VIAL IVP SCH (05:35)
[2023-07-11] MEDS: Budesonide 0.5 MG/2 ML NEB NEB SCH ×2 (07:47→18:49)
[2023-07-11] MEDS: Multivit, Therapeutic 1 TAB PO SCH (08:22)
[2023-07-11] MEDS: Aspirin 81 mg Enteric Coated Tablet PO SCH (08:22)
[2023-07-11] MEDS: Pentoxifylline 400 MG ER.TAB PO SCH ×3 (08:22→20:11)
[2023-07-11] MEDS: Furosemide 40 MG TAB PO SCH (08:22)
[2023-07-11] MEDS: Clopidogrel Bisulfate 75 MG TAB PO SCH (08:22)
[2023-07-11] MEDS: Famotidine 20 MG TAB PO SCH (08:22)
[2023-07-11] MEDS: Insulin Glargine 30 UNITS/0.3 ML VIAL SC SCH (08:25)
[2023-07-11] MEDS ORDERED: hydrOXYzine 10 MG/5 ML UDCUP PO PRN (08:33)
[2023-07-11] MEDS ORDERED: hydrOXYzine 25 MG TAB PO PRN (08:42)
[2023-07-11 09:57] LABS: #Monocytes 0.5 thou/uL (0.11-0.59); #Neutrophils 8.1 thou/uL (1.40-6.50); %Lymphocytes 4.2 % (21.0-51.0); %Monocytes 5.2 % (0.0-10.0); %Neutrophils 90.3 % (42.0-75.0); Hematocrit 30.7 % (36.0-47.0); Mean Corpuscular HGB CONC 29.3 g/dL (32.0-36.0); Mean Corpuscular Hemoglobin 32.4 pg (27.0-31.0); Mean Corpuscular Volume 110.4 fl (78.0-98.0); Mean Platelet Volume 10.7 fL (7.4-10.4); Platelet Count 192 10x3/uL (130-400); RBC Distribution Width 15.3 % (11.5-14.5); Red Blood Cell (RBC) Count 2.78 mill/uL (4.20-5.40)
[2023-07-11] MEDS: Azithromycin 250 MG TAB PO SCH (09:57)
[2023-07-11] MEDS: predniSONE 20 MG TAB PO SCH (09:57)
[2023-07-11 10:27] LABS: Anisocytosis SLIGHT = 6-15 cells HPF (0-5); CellaVision Operator ID lab.dlt; Macrocytosis SLIGHT = 6-15 cells HPF (0-5); Platelet Adequacy Comment Platelets Normal; Poikilocytosis SLIGHT = 6-15 cells HPF (0-5); Polychromasia SLIGHT = 2-3 cells HPF (0-2); Schistocytes SLIGHT = 2-5 cells HPF (0-1)
[2023-07-11 10:29] LABS: ALT (SGPT) 50 U/L (8-55); AST (SGOT) 14 U/L (5-34); Albumin 3.3 g/dL (3.4-4.8); Alkaline Phosphatase 92 U/L (40-110); Anion Gap 15 mmol/L (10-20); BUN (Urea Nitrogen) 37 mg/dL (9.8-20.1); Bilirubin, Total 0.3 mg/dL (0.2-1.2); Calc. Creatinine Clearance 48 mL/min (70-130); Calcium 8.8 mg/dL (7.8-10.44); Carbon Dioxide 25 mmol/L (23-31); Chloride 109 mmol/L (98-107); Estimated GFR 67; Globulin 2.5 g/dL (2.4-3.5); Glucose 145 mg/dL (83-110); Protein, Total 5.8 g/dL (5.8-8.1); Sodium 144 mmol/L (136-145)
[2023-07-11] MEDS: Atorvastatin Calcium 40 MG TAB PO SCH (20:11)
[2023-07-11] MEDS: Latanoprost 0.005% Ophth Soln 2.5 ml Bottle EA EYE SCH (20:13)
[2023-07-12] MEDS: HumaLOG 300 UNITS/3 ML VIAL SC PRN ×3 (00:35→16:26)
[2023-07-12] MEDS: Ipratropium/Albuterol 3 ML NEB NEB SCH ×6 (02:20→22:35)
[2023-07-12 04:12] LABS: #Monocytes 0.7 thou/uL (0.11-0.59); #Neutrophils 6.1 thou/uL (1.40-6.50); %Eosinophils 0.1 % (0.0-10.0); %Lymphocytes 13.8 % (21.0-51.0); %Monocytes 9.2 % (0.0-10.0); %Neutrophils 76.5 % (42.0-75.0); Hematocrit 27.7 % (36.0-47.0); Hemoglobin 8.3 g/dL (12.0-16.0); Mean Corpuscular Hemoglobin 32.7 pg (27.0-31.0); Mean Corpuscular Volume 109.1 fl (78.0-98.0); Mean Platelet Volume 11.2 fL (7.4-10.4); Platelet Count 198 10x3/uL (130-400); RBC Distribution Width 15.2 % (11.5-14.5); Red Blood Cell (RBC) Count 2.54 mill/uL (4.20-5.40)
[2023-07-12 04:38] LABS: ALT (SGPT) 39 U/L (8-55); AST (SGOT) 9 U/L (5-34); Albumin 3.4 g/dL (3.4-4.8); Alkaline Phosphatase 89 U/L (40-110); Anion Gap 12 mmol/L (10-20); BUN (Urea Nitrogen) 33 mg/dL (9.8-20.1); Bilirubin, Total 0.3 mg/dL (0.2-1.2); Calc. Creatinine Clearance 50 mL/min (70-130); Calcium 9.3 mg/dL (7.8-10.44); Carbon Dioxide 28 mmol/L (23-31); Chloride 107 mmol/L (98-107); Estimated GFR 69; Globulin 2.1 g/dL (2.4-3.5); Glucose 193 mg/dL (83-110); Potassium 4.3 mmol/L (3.5-5.1); Protein, Total 5.5 g/dL (5.8-8.1); Sodium 143 mmol/L (136-145)
[2023-07-12] MEDS: Budesonide 0.5 MG/2 ML NEB NEB SCH ×2 (06:51→18:35)
[2023-07-12] MEDS ORDERED: Azithromycin 250 MG TAB PO SCH (09:00)
[2023-07-12] MEDS: predniSONE 20 MG TAB PO SCH (09:07)
[2023-07-12] MEDS: Famotidine 20 MG TAB PO SCH (09:08)
[2023-07-12] MEDS: Azithromycin 250 MG TAB PO SCH (09:08)
[2023-07-12] MEDS: Pentoxifylline 400 MG ER.TAB PO SCH ×3 (09:08→21:44)
[2023-07-12] MEDS: Aspirin 81 mg Enteric Coated Tablet PO SCH (09:08)
[2023-07-12] MEDS: Multivit, Therapeutic 1 TAB PO SCH (09:08)
[2023-07-12] MEDS: Clopidogrel Bisulfate 75 MG TAB PO SCH (09:08)
[2023-07-12] MEDS: Furosemide 40 MG TAB PO SCH (09:08)
[2023-07-12] MEDS: Insulin Glargine 30 UNITS/0.3 ML VIAL SC SCH (09:09)
[2023-07-12] MEDS: Ferrous Sulfate 325 MG TAB PO SCH (12:06)
[2023-07-12] MEDS: Latanoprost 0.005% Ophth Soln 2.5 ml Bottle EA EYE SCH (21:44)
[2023-07-12] MEDS: Atorvastatin Calcium 40 MG TAB PO SCH (21:44)
[2023-07-13] MEDS: Ipratropium/Albuterol 3 ML NEB NEB SCH ×6 (02:33→23:01)
[2023-07-13 04:33] LABS: #Eosinphils 0.2 thou/uL (0.0-0.7); #Monocytes 0.5 thou/uL (0.11-0.59); #Neutrophils 5.2 thou/uL (1.40-6.50); %Basophils 0.1 % (0.0-1.0); %Eosinophils 2.3 % (0.0-10.0); %Monocytes 6.9 % (0.0-10.0); %Neutrophils 69.3 % (42.0-75.0); Hematocrit 26.9 % (36.0-47.0); Hemoglobin 8.1 g/dL (12.0-16.0); Mean Corpuscular HGB CONC 30.1 g/dL (32.0-36.0); Mean Corpuscular Hemoglobin 32.7 pg (27.0-31.0); Mean Corpuscular Volume 108.5 fl (78.0-98.0); Mean Platelet Volume 10.9 fL (7.4-10.4); Platelet Count 187 10x3/uL (130-400); RBC Distribution Width 14.9 % (11.5-14.5); Red Blood Cell (RBC) Count 2.48 mill/uL (4.20-5.40); White Blood Cell (WBC) Count 7.4 10x3/uL (4.8-10.8)
[2023-07-13 05:01] LABS: ALT (SGPT) 32 U/L (8-55); AST (SGOT) 9 U/L (5-34); Albumin 3.2 g/dL (3.4-4.8); Alkaline Phosphatase 82 U/L (40-110); Anion Gap 9 mmol/L (10-20); BUN (Urea Nitrogen) 34 mg/dL (9.8-20.1); Bilirubin, Total 0.4 mg/dL (0.2-1.2); Calc. Creatinine Clearance 48 mL/min (70-130); Carbon Dioxide 30 mmol/L (23-31); Chloride 105 mmol/L (98-107); Estimated GFR 67; Globulin 1.9 g/dL (2.4-3.5); Glucose 158 mg/dL (83-110); Potassium 4.4 mmol/L (3.5-5.1); Protein, Total 5.1 g/dL (5.8-8.1); Sodium 140 mmol/L (136-145)
[2023-07-13] MEDS: Budesonide 0.5 MG/2 ML NEB NEB SCH ×2 (06:47→18:42)
[2023-07-13] MEDS: predniSONE 20 MG TAB PO SCH (09:44)
[2023-07-13] MEDS: Clopidogrel Bisulfate 75 MG TAB PO SCH (09:45)
[2023-07-13] MEDS: Pentoxifylline 400 MG ER.TAB PO SCH ×3 (09:45→21:31)
[2023-07-13] MEDS: Aspirin 81 mg Enteric Coated Tablet PO SCH (09:45)
[2023-07-13] MEDS: Multivit, Therapeutic 1 TAB PO SCH (09:45)
[2023-07-13] MEDS: Famotidine 20 MG TAB PO SCH (09:45)
[2023-07-13] MEDS: Azithromycin 250 MG TAB PO SCH (09:45)
[2023-07-13] MEDS: Insulin Glargine 30 UNITS/0.3 ML VIAL SC SCH (09:46)
[2023-07-13] MEDS: Furosemide 40 MG TAB PO SCH (09:46)
[2023-07-13] MEDS: HumaLOG 300 UNITS/3 ML VIAL SC PRN ×3 (12:53→21:31)
[2023-07-13] MEDS ORDERED: Polyethylene Glycol 3350 17 GM Packet PO SCH (17:00)
[2023-07-13] MEDS: Atorvastatin Calcium 40 MG TAB PO SCH (21:31)
[2023-07-13] MEDS: Latanoprost 0.005% Ophth Soln 2.5 ml Bottle EA EYE SCH (21:32)
[2023-07-14] MEDS: Ipratropium/Albuterol 3 ML NEB NEB SCH ×6 (01:46→23:10)
[2023-07-14] MEDS: Budesonide 0.5 MG/2 ML NEB NEB SCH ×2 (07:19→19:04)
[2023-07-14 07:38] LABS: ALT (SGPT) 31 U/L (8-55); AST (SGOT) 14 U/L (5-34); Albumin 3.2 g/dL (3.4-4.8); Alkaline Phosphatase 74 U/L (40-110); Anion Gap 9 mmol/L (10-20); BUN (Urea Nitrogen) 30 mg/dL (9.8-20.1); Bilirubin, Total 0.4 mg/dL (0.2-1.2); Calc. Creatinine Clearance 53 mL/min (70-130); Carbon Dioxide 32 mmol/L (23-31); Chloride 104 mmol/L (98-107); Estimated GFR 75; Glucose 167 mg/dL (83-110); Potassium 4.4 mmol/L (3.5-5.1); Protein, Total 5.2 g/dL (5.8-8.1); Sodium 141 mmol/L (136-145)
[2023-07-14 08:40] LABS: #Eosinphils 0.2 thou/uL (0.0-0.7); #Monocytes 0.7 thou/uL (0.11-0.59); #Neutrophils 5.1 thou/uL (1.40-6.50); %Basophils 0.3 % (0.0-1.0); %Lymphocytes 24.2 % (21.0-51.0); %Monocytes 8.5 % (0.0-10.0); %Neutrophils 64.1 % (42.0-75.0); Hematocrit 30.5 % (36.0-47.0); Hemoglobin 9.2 g/dL (12.0-16.0); Mean Corpuscular HGB CONC 30.2 g/dL (32.0-36.0); Mean Corpuscular Hemoglobin 31.9 pg (27.0-31.0); Mean Corpuscular Volume 105.9 fl (78.0-98.0); Mean Platelet Volume 10.7 fL (7.4-10.4); RBC Distribution Width 14.8 % (11.5-14.5); Red Blood Cell (RBC) Count 2.88 mill/uL (4.20-5.40); White Blood Cell (WBC) Count 7.9 10x3/uL (4.8-10.8)
[2023-07-14] MEDS: Polyethylene Glycol 3350 17 GM Packet PO SCH (09:00)
[2023-07-14] MEDS: predniSONE 20 MG TAB PO SCH (09:00)
[2023-07-14] MEDS ORDERED: Insulin Glargine 30 UNITS/0.3 ML VIAL SC SCH (09:00)
[2023-07-14] MEDS: Clopidogrel Bisulfate 75 MG TAB PO SCH (09:01)
[2023-07-14] MEDS: Famotidine 20 MG TAB PO SCH (09:01)
[2023-07-14] MEDS: Aspirin 81 mg Enteric Coated Tablet PO SCH (09:01)
[2023-07-14] MEDS: Multivit, Therapeutic 1 TAB PO SCH (09:01)
[2023-07-14] MEDS: Furosemide 40 MG TAB PO SCH (09:01)
[2023-07-14] MEDS: HumaLOG 300 UNITS/3 ML VIAL SC SCH ×3 (09:02→18:33)
[2023-07-14] MEDS: Pentoxifylline 400 MG ER.TAB PO SCH ×3 (09:18→22:07)
[2023-07-14] MEDS ORDERED: HumaLOG 300 UNITS/3 ML VIAL SC PRN (13:16)
[2023-07-14] MEDS: Ferrous Sulfate 325 MG TAB PO SCH (13:16)
[2023-07-14] MEDS: Atorvastatin Calcium 40 MG TAB PO SCH (22:06)
[2023-07-14] MEDS: Latanoprost 0.005% Ophth Soln 2.5 ml Bottle EA EYE SCH (22:07)
[2023-07-15] MEDS: Ipratropium/Albuterol 3 ML NEB NEB SCH ×4 (01:23→18:50)
[2023-07-15] MEDS: Budesonide 0.5 MG/2 ML NEB NEB SCH ×2 (07:03→18:52)
[2023-07-15 08:25] LABS: ALT (SGPT) 29 U/L (8-55); AST (SGOT) 19 U/L (5-34); Albumin 3.1 g/dL (3.4-4.8); Alkaline Phosphatase 77 U/L (40-110); Anion Gap 9 mmol/L (10-20); BUN (Urea Nitrogen) 29 mg/dL (9.8-20.1); Bilirubin, Total 0.4 mg/dL (0.2-1.2); Calc. Creatinine Clearance 51 mL/min (70-130); Calcium 8.4 mg/dL (7.8-10.44); Carbon Dioxide 30 mmol/L (23-31); Chloride 107 mmol/L (98-107); Estimated GFR 71; Glucose 144 mg/dL (83-110); Protein, Total 5.1 g/dL (5.8-8.1); Sodium 142 mmol/L (136-145)
[2023-07-15] MEDS: HumaLOG 300 UNITS/3 ML VIAL SC SCH ×3 (08:35→18:04)
[2023-07-15] MEDS: predniSONE 20 MG TAB PO SCH (09:34)
[2023-07-15] MEDS: Aspirin 81 mg Enteric Coated Tablet PO SCH (09:34)
[2023-07-15] MEDS: Famotidine 20 MG TAB PO SCH (09:35)
[2023-07-15] MEDS: Multivit, Therapeutic 1 TAB PO SCH (09:35)
[2023-07-15] MEDS: Furosemide 40 MG TAB PO SCH (09:35)
[2023-07-15] MEDS: Clopidogrel Bisulfate 75 MG TAB PO SCH (09:35)
[2023-07-15] MEDS: Insulin Glargine 30 UNITS/0.3 ML VIAL SC SCH (09:36)
[2023-07-15] MEDS: Polyethylene Glycol 3350 17 GM Packet PO SCH (09:36)
[2023-07-15] MEDS ORDERED: Ipratropium/Albuterol 3 ML NEB NEB SCH (09:45)
[2023-07-15] MEDS ORDERED: Lorazepam 2 MG/ML VIAL SLOW IVP SCH (09:45)
[2023-07-15 10:28] LABS: CO2 Tension 68.4 mmHg (35.0-45.0)
[2023-07-15 10:29] LABS: Puncture Site RRA
[2023-07-15] MEDS: Pentoxifylline 400 MG ER.TAB PO SCH ×3 (10:36→21:24)
[2023-07-15] MEDS: Latanoprost 0.005% Ophth Soln 2.5 ml Bottle EA EYE SCH (21:23)
[2023-07-15] MEDS: Atorvastatin Calcium 40 MG TAB PO SCH (21:23)
[2023-07-16] MEDS: Ipratropium/Albuterol 3 ML NEB NEB SCH ×3 (02:04→13:36)
[2023-07-16] MEDS: Budesonide 0.5 MG/2 ML NEB NEB SCH (06:41)
[2023-07-16] MEDS: predniSONE 20 MG TAB PO SCH (08:56)
[2023-07-16] MEDS: HumaLOG 300 UNITS/3 ML VIAL SC SCH ×2 (08:56→12:53)
[2023-07-16] MEDS: Insulin Glargine 30 UNITS/0.3 ML VIAL SC SCH (08:57)
[2023-07-16] MEDS: Aspirin 81 mg Enteric Coated Tablet PO SCH (08:58)
[2023-07-16] MEDS: Clopidogrel Bisulfate 75 MG TAB PO SCH (08:58)
[2023-07-16] MEDS: Famotidine 20 MG TAB PO SCH (08:58)
[2023-07-16] MEDS: Multivit, Therapeutic 1 TAB PO SCH (08:58)
[2023-07-16] MEDS: Polyethylene Glycol 3350 17 GM Packet PO SCH (08:59)
[2023-07-16] MEDS: Pentoxifylline 400 MG ER.TAB PO SCH (08:59)
[2023-07-16] MEDS: Furosemide 40 MG TAB PO SCH (09:01)
[2023-07-16] MEDS: Ferrous Sulfate 325 MG TAB PO SCH (12:44)
[2023-07-16 12:55] VITALS: BP 153/72; TEMP 97.7
== END 2023-07-16 15:35 | disposition home or self-care (01) | DRG 189 ==
LOC: ERS 10:14 → 2NO 13:37 → OBSVTOIN 13:37 → IMCU/EMU 15:03 → 2SE 07-12 08:17
PROVIDERS: ADMIT Family Medicine; ATTEND Family Medicine
PROC: 4A133R1 Monitoring of Arterial Saturation, Peripheral, Percutaneous Approach (ICD-10-PCS; principal; 2023-07-07)
PROC: 5A09457 Assistance with Respiratory Ventilation, 24-96 Consecutive Hours, Continuous Positive Airway Pressure (ICD-10-PCS; 2023-07-07)
DX: J96.21 Acute and chronic respiratory failure with hypoxia (principal); I21.A1 Myocardial infarction type 2; J44.1 Chronic obstructive pulmonary disease with (acute) exacerbation; E87.29 Other acidosis; I13.0 Hypertensive heart and chronic kidney disease with heart failure and stage 1 through stage 4 chronic kidney disease, or unspecified chronic kidney disease; J84.9 Interstitial pulmonary disease, unspecified; T68.XXXA Hypothermia, initial encounter; R74.01 Elevation of levels of liver transaminase levels; E11.649 Type 2 diabetes mellitus with hypoglycemia without coma; E78.5 Hyperlipidemia, unspecified; N18.31 Chronic kidney disease, stage 3a; K21.9 Gastro-esophageal reflux disease without esophagitis; I25.10 Atherosclerotic heart disease of native coronary artery without angina pectoris; Z95.5 Presence of coronary angioplasty implant and graft; Z98.890 Other specified postprocedural states; D63.1 Anemia in chronic kidney disease; Z91.040 Latex allergy status; I50.9 Heart failure, unspecified; Z83.3 Family history of diabetes mellitus; Z87.891 Personal history of nicotine dependence; B97.0 Adenovirus as the cause of diseases classified elsewhere; G47.33 Obstructive sleep apnea (adult) (pediatric); E11.65 Type 2 diabetes mellitus with hyperglycemia; Z79.899 Other long term (current) drug therapy; Z79.82 Long term (current) use of aspirin; Z11.52 Encounter for screening for COVID-19
CPT/HCPCS: 36415; 36416; 36600; 70450; 71045; 80053; 81001; 82607; 82805; 83036; 83605; 83690; 83880; 84145; 84484; 85025; 87040; 87633; 93005; 94640; 94660; 96365; 96367; 96368; J0456; J0696; J1650; J1815; J2060; J2920; J3475; J3490; J7050; J7512; J7620; J7626; S0028

== ENCOUNTER 2023-08-04 19:33 | Inpatient (IN) | payer MEDICARE ==
[~2023-08-04 19:33] MED LIST: Iopamidol-370 76% 500 ML MDV (1 ML CHARGE) ONE
[2023-08-04] MEDS ORDERED: KETAMINE 100 MG/ML (5ML VIAL) ONE (19:51)
[2023-08-04] MEDS ORDERED: Ipratropium/Albuterol 3 ML NEB ONE (19:52)
[2023-08-04] MEDS ORDERED: Rocuronium Bromide 10 MG/ML (10ML VIAL) ONE (19:56)
[2023-08-04 20:25] LABS: Analyzer IN Cardio ER; Base Excess (BEa) -2.5 mEq/L (-2.0 to +3.0); Calcium, Ionized (arterial) 1.18 mmol/L (1.12-1.30); Carboxyhemoglobin (COHb) 0.7 gm% (0.0-3.0); Hematocrit-ABG 26 % (36.0-47.0); Hemoglobin (Hb) 8.8 g/dL (12.0-16.0); O2 Tension (PaO2), arterial 72.5 mmHg (> 60.0); Potassium - ABG Lab 3.78 mmol/L (3.70-5.30); pH, Arterial 7.393 (7.35-7.45)
[2023-08-04 20:28] LABS: Puncture Site LBA
[2023-08-04] MEDS ORDERED: Fentanyl CADD 100 ML IV SCH (20:30)
[2023-08-04] MEDS ORDERED: cefTRIAXone (ROCEPHIN) 2 GM VIAL ONE (20:48)
[2023-08-04] MEDS ORDERED: Sodium Chloride 0.9% 100 ML ONE (20:48)
[2023-08-04 21:05] LABS: Bacteria/HPF 1+ HPF (None Seen); Bilirubin Negative (Negative); Blood, Urine Negative (Negative); CAUTI Indications for Culture Alt mental st,lethar; Clarity Turbid (Clear); Glucose, Urine (Dipstick) 200 mg/dL (Negative); Ketone, Urine Negative (Negative); Leukocyte Negative Leu/uL (Negative); Nitrite Negative (Negative); Protein, Urine (Dipstick) 100 mg/dL (Neg-Trace); RBC/HPF 0-3 HPF (0-3); Specific Gravity, Urine 1.019 (1.002-1.036); Squamous Epithelial 0-3 HPF (0-3); Urobilinogen Normal mg/dL (Less than 2); WBC/HPF 0-3 HPF (0-3); pH, Urine 5.5 (5.0-9.0)
[2023-08-04 21:06] LABS: Urine Culture Reflex No No
[2023-08-04 21:11] LABS: #Eosinphils 0.1 thou/uL (0.0-0.7); #Monocytes 0.8 thou/uL (0.11-0.59); #Neutrophils 10.5 thou/uL (1.40-6.50); %Basophils 0.2 % (0.0-1.0); %Eosinophils 0.6 % (0.0-10.0); %Lymphocytes 9.6 % (21.0-51.0); %Monocytes 6.6 % (0.0-10.0); %Neutrophils 82.5 % (42.0-75.0); Hematocrit 29.2 % (36.0-47.0); Hemoglobin 8.6 g/dL (12.0-16.0); Mean Corpuscular HGB CONC 29.5 g/dL (32.0-36.0); Mean Corpuscular Hemoglobin 31.3 pg (27.0-31.0); Mean Corpuscular Volume 106.2 fl (78.0-98.0); Mean Platelet Volume 10.6 fL (7.4-10.4); Platelet Count 259 10x3/uL (130-400); RBC Distribution Width 14.5 % (11.5-14.5); Red Blood Cell (RBC) Count 2.75 mill/uL (4.20-5.40); White Blood Cell (WBC) Count 12.7 10x3/uL (4.8-10.8)
[2023-08-04 21:15] LABS: SARS-CoV-2 NAA Rapid Test Not Detected (NotDetected)
[2023-08-04] MEDS ORDERED: Azithromycin 500 MG VIAL ONE (21:15)
[2023-08-04 21:33] LABS: ALT (SGPT) 86 U/L (8-55); AST (SGOT) 106 U/L (5-34); Albumin 3.4 g/dL (3.4-4.8); Alkaline Phosphatase 114 U/L (40-110); Anion Gap 17 mmol/L (10-20); BUN (Urea Nitrogen) 21 mg/dL (9.8-20.1); Bilirubin, Total 0.4 mg/dL (0.2-1.2); Calc. Creatinine Clearance 0 mL/min (70-130); Calcium 9.2 mg/dL (7.8-10.44); Carbon Dioxide 20 mmol/L (23-31); Chloride 108 mmol/L (98-107); Estimated GFR 62; Glucose 231 mg/dL (83-110); Magnesium 2.5 mg/dL (1.6-2.6); Potassium 3.9 mmol/L (3.5-5.1); Protein, Total 6.4 g/dL (5.8-8.1); Sodium 141 mmol/L (136-145)
[2023-08-04] MEDS ORDERED: Acetaminophen 650 MG Suppository PR PRN (23:37)
[2023-08-04] MEDS ORDERED: Ipratropium/Albuterol 3 ML NEB NEB PRN (23:37)
[2023-08-04] MEDS ORDERED: Dextrose 50% Abboject 50 ML SYRINGE SLOW IVP PRN (23:37)
[2023-08-04] MEDS ORDERED: Dextrose 5% in Water 1,000 ML IV PRN (23:37)
[2023-08-04] MEDS ORDERED: Acetaminophen 325 MG TAB PO PRN (23:37)
[2023-08-04] MEDS ORDERED: Glucagon 1 MG/ML KIT IM PRN (23:37)
[2023-08-04] MEDS ORDERED: Ventilator Sedation Protocol 1 EACH FS SCH (23:45)
[2023-08-04] MEDS ORDERED: hydrOXYzine 25 MG TAB PO PRN (23:51)
[2023-08-05] MEDS ORDERED: Propofol BOLUS 1,000 MG/100 ML VIAL IV PRN (00:15)
[2023-08-05] MEDS ORDERED: Fentanyl BOLUS 250 ML IVPB PRN (00:15)
[2023-08-05] MEDS ORDERED: Lorazepam 2 MG/ML VIAL SLOW IVP PRN (00:15)
[2023-08-05] MEDS ORDERED: Morphine 2 MG/ML VIAL SLOW IVP PRN (00:15)
[2023-08-05] MEDS ORDERED: Propofol 1,000 MG/100 ML VIAL IV PRN (00:15)
[2023-08-05] MEDS ORDERED: DISCONTINUE PREVIOUS NARCOTIC PAIN MEDICATIONS AND BENZODIAZEPINES FS SCH (00:15)
[2023-08-05] MEDS ORDERED: Furosemide 40 MG/4 ML VIAL SLOW IVP SCH ×2 (00:30→09:00)
[2023-08-05 00:44] LABS: Troponin I 0.033 ng/mL (< 0.028)
[2023-08-05 01:18] LABS: Lactic Acid 1.7 mmol/L (0.5-2.2)
[2023-08-05] MEDS: Ipratropium/Albuterol 3 ML NEB NEB SCH ×5 (02:18→23:30)
[2023-08-05 04:43] LABS: #Monocytes 0.1 thou/uL (0.11-0.59); #Neutrophils 6.6 thou/uL (1.40-6.50); %Basophils 0.1 % (0.0-1.0); %Lymphocytes 6.6 % (21.0-51.0); %Monocytes 1.7 % (0.0-10.0); %Neutrophils 91.2 % (42.0-75.0); Hematocrit 26.1 % (36.0-47.0); Hemoglobin 7.8 g/dL (12.0-16.0); Mean Corpuscular HGB CONC 29.9 g/dL (32.0-36.0); Mean Corpuscular Hemoglobin 31.6 pg (27.0-31.0); Mean Corpuscular Volume 105.7 fl (78.0-98.0); Mean Platelet Volume 10.6 fL (7.4-10.4); Platelet Count 255 10x3/uL (130-400); RBC Distribution Width 14.2 % (11.5-14.5); Red Blood Cell (RBC) Count 2.47 mill/uL (4.20-5.40); White Blood Cell (WBC) Count 7.3 10x3/uL (4.8-10.8)
[2023-08-05 05:13] LABS: ALT (SGPT) 72 U/L (8-55); AST (SGOT) 47 U/L (5-34); Alkaline Phosphatase 104 U/L (40-110); Anion Gap 14 mmol/L (10-20); BUN (Urea Nitrogen) 23 mg/dL (9.8-20.1); Bilirubin, Total 0.3 mg/dL (0.2-1.2); Calc. Creatinine Clearance 50 mL/min (70-130); Calcium 8.5 mg/dL (7.8-10.44); Carbon Dioxide 22 mmol/L (23-31); Chloride 110 mmol/L (98-107); Estimated GFR 66; Globulin 2.6 g/dL (2.4-3.5); Glucose 286 mg/dL (83-110); Potassium 4.2 mmol/L (3.5-5.1); Protein, Total 5.6 g/dL (5.8-8.1); Sodium 142 mmol/L (136-145)
[2023-08-05] MEDS: methylPREDNISolone Sod Succ/PF 125 MG/2 ML VIAL IVP SCH ×3 (06:13→22:05)
[2023-08-05] MEDS: HumaLOG 300 UNITS/3 ML VIAL SC PRN ×4 (06:47→16:56)
[2023-08-05 07:08] LABS: Actual Bicarbonate (HCO3a) 23.4 mEq/L (22-28); Base Excess (BEa) -1.1 mEq/L (-2.0 to +3.0); Calcium, Ionized (arterial) 1.15 mmol/L (1.12-1.30); Carboxyhemoglobin (COHb) 0.6 gm% (0.0-3.0); Hematocrit-ABG 27 % (36.0-47.0); Hemoglobin (Hb) 9.2 g/dL (12.0-16.0); O2 Tension (PaO2), arterial 68.8 mmHg (> 60.0); Potassium - ABG Lab 4.28 mmol/L (3.70-5.30); pH, Arterial 7.407 (7.35-7.45)
[2023-08-05 07:11] LABS: Puncture Site RRA
[2023-08-05] MEDS: Sodium Chloride 0.9% 1,000 ML IV SCH (08:37)
[2023-08-05] MEDS: Clopidogrel Bisulfate 75 MG TAB PO SCH (08:50)
[2023-08-05] MEDS: Ferrous Sulfate 325 MG TAB PO SCH (08:50)
[2023-08-05] MEDS: Multivit, Therapeutic 1 TAB PO SCH (08:50)
[2023-08-05] MEDS: Famotidine/PF 20 mg/2ml Vial SLOW IVP SCH (08:50)
[2023-08-05] MEDS: Pentoxifylline 400 MG ER.TAB PO SCH ×3 (08:50→20:03)
[2023-08-05] MEDS: Aspirin 81 mg Enteric Coated Tablet PO SCH (08:50)
[2023-08-05] MEDS: Insulin Glargine 30 UNITS/0.3 ML VIAL SC SCH (08:50)
[2023-08-05] MEDS: Furosemide 40 MG/4 ML VIAL SLOW IVP SCH ×2 (08:52→20:02)
[2023-08-05] MEDS ORDERED: cefTRIAXone\\ROCEPHIN 2 GM in Sodium Chloride 0.9% 100 ML IVPB SCH (20:00)
[2023-08-05] MEDS: Atorvastatin Calcium 40 MG TAB PO SCH (20:02)
[2023-08-05] MEDS ORDERED: Azithromycin 500 MG in Sodium Chloride 0.9% 250 ML 250 ML IVPB SCH (21:00)
[2023-08-05] MEDS ORDERED: Insulin Glargine 30 UNITS/0.3 ML VIAL SC SCH (21:00)
[2023-08-05] MEDS: Latanoprost 0.005% Ophth Soln 2.5 ml Bottle EA EYE SCH (21:00)
[2023-08-06] MEDS: methylPREDNISolone Sod Succ/PF 125 MG/2 ML VIAL IVP SCH ×2 (05:09→13:44)
[2023-08-06] MEDS: Sodium Chloride 0.9% 1,000 ML IV SCH ×2 (05:10→23:13)
[2023-08-06] MEDS: HumaLOG 300 UNITS/3 ML VIAL SC PRN ×2 (05:18→14:01)
[2023-08-06] MEDS: Lorazepam 2 MG/ML VIAL SLOW IVP PRN (05:46)
[2023-08-06] MEDS: Ipratropium/Albuterol 3 ML NEB NEB SCH ×4 (06:59→23:22)
[2023-08-06] MEDS: Furosemide 40 MG/4 ML VIAL SLOW IVP SCH ×2 (08:37→21:11)
[2023-08-06] MEDS: Aspirin 81 mg Enteric Coated Tablet PO SCH (08:37)
[2023-08-06] MEDS: Famotidine/PF 20 mg/2ml Vial SLOW IVP SCH (08:38)
[2023-08-06] MEDS: Pentoxifylline 400 MG ER.TAB PO SCH ×3 (08:38→21:11)
[2023-08-06] MEDS: Clopidogrel Bisulfate 75 MG TAB PO SCH (08:38)
[2023-08-06] MEDS: Multivit, Therapeutic 1 TAB PO SCH (08:38)
[2023-08-06] MEDS: Insulin Glargine 30 UNITS/0.3 ML VIAL SC SCH (09:03)
[2023-08-06] MEDS: Lorazepam 1 MG TAB PO PRN ×3 (09:28→21:11)
[2023-08-06] MEDS: Latanoprost 0.005% Ophth Soln 2.5 ml Bottle EA EYE SCH (21:11)
[2023-08-06] MEDS: Atorvastatin Calcium 40 MG TAB PO SCH (21:11)
[2023-08-07] MEDS: methylPREDNISolone Sod Succ 40 MG VIAL IVP SCH ×2 (01:42→15:08)
[2023-08-07] MEDS: Lorazepam 1 MG TAB PO PRN (04:44)
[2023-08-07] MEDS: Morphine 2 MG/ML VIAL SLOW IVP PRN ×2 (04:56→10:57)
[2023-08-07] MEDS: Ipratropium/Albuterol 3 ML NEB NEB SCH ×4 (07:34→22:55)
[2023-08-07] MEDS: Lorazepam 2 MG/ML VIAL SLOW IVP PRN (10:57)
[2023-08-07] MEDS: Clopidogrel Bisulfate 75 MG TAB PO SCH (11:25)
[2023-08-07] MEDS: Aspirin 81 mg Enteric Coated Tablet PO SCH (11:25)
[2023-08-07] MEDS: Ferrous Sulfate 325 MG TAB PO SCH (11:25)
[2023-08-07] MEDS: Multivit, Therapeutic 1 TAB PO SCH (11:26)
[2023-08-07] MEDS: Furosemide 40 MG/4 ML VIAL SLOW IVP SCH ×2 (11:26→20:22)
[2023-08-07] MEDS: Insulin Glargine 30 UNITS/0.3 ML VIAL SC SCH (11:26)
[2023-08-07] MEDS: Pentoxifylline 400 MG ER.TAB PO SCH ×3 (11:26→20:23)
[2023-08-07] MEDS: Famotidine/PF 20 mg/2ml Vial SLOW IVP SCH (11:26)
[2023-08-07] MEDS: Sodium Chloride 0.9% 1,000 ML IV SCH (16:44)
[2023-08-07] MEDS: Atorvastatin Calcium 40 MG TAB PO SCH (20:23)
[2023-08-07] MEDS: Latanoprost 0.005% Ophth Soln 2.5 ml Bottle EA EYE SCH (20:35)
[2023-08-07] MEDS: HumaLOG 300 UNITS/3 ML VIAL SC PRN (20:45)
[2023-08-08] MEDS: methylPREDNISolone Sod Succ 40 MG VIAL IVP SCH ×2 (02:02→12:37)
[2023-08-08] MEDS: Lorazepam 2 MG/ML VIAL SLOW IVP PRN ×3 (05:27→22:29)
[2023-08-08] MEDS: Morphine 2 MG/ML VIAL SLOW IVP PRN ×3 (05:28→22:29)
[2023-08-08] MEDS: HumaLOG 300 UNITS/3 ML VIAL SC PRN (06:28)
[2023-08-08] MEDS: Ipratropium/Albuterol 3 ML NEB NEB SCH ×3 (06:37→18:20)
[2023-08-08] MEDS: Clopidogrel Bisulfate 75 MG TAB PO SCH (12:00)
[2023-08-08] MEDS: Aspirin 81 mg Enteric Coated Tablet PO SCH (12:00)
[2023-08-08] MEDS: Famotidine/PF 20 mg/2ml Vial SLOW IVP SCH (12:00)
[2023-08-08] MEDS: Pentoxifylline 400 MG ER.TAB PO SCH ×3 (12:01→22:29)
[2023-08-08] MEDS: Multivit, Therapeutic 1 TAB PO SCH (12:01)
[2023-08-08] MEDS: Insulin Glargine 30 UNITS/0.3 ML VIAL SC SCH (12:01)
[2023-08-08] MEDS: Furosemide 40 MG/4 ML VIAL SLOW IVP SCH (12:01)
[2023-08-08] MEDS: Sodium Chloride 0.9% 1,000 ML IV SCH (12:01)
[2023-08-08 13:48] VITALS: BMI 27.9
[2023-08-08] MEDS: Latanoprost 0.005% Ophth Soln 2.5 ml Bottle EA EYE SCH (22:29)
[2023-08-09] MEDS: Ipratropium/Albuterol 3 ML NEB NEB SCH ×4 (02:01→18:30)
[2023-08-09] MEDS: Pentoxifylline 400 MG ER.TAB PO SCH ×3 (09:37→21:40)
[2023-08-09] MEDS: Clopidogrel Bisulfate 75 MG TAB PO SCH (09:37)
[2023-08-09] MEDS: Aspirin 81 mg Enteric Coated Tablet PO SCH (09:37)
[2023-08-09] MEDS: Lorazepam 2 MG/ML VIAL SLOW IVP PRN ×3 (09:38→21:40)
[2023-08-09] MEDS: Morphine 2 MG/ML VIAL SLOW IVP PRN ×4 (09:38→21:39)
[2023-08-09] MEDS: Insulin Glargine 30 UNITS/0.3 ML VIAL SC SCH (09:46)
[2023-08-09] MEDS: Sodium Chloride 0.9% 1,000 ML IV SCH (12:00)
[2023-08-09] MEDS: Latanoprost 0.005% Ophth Soln 2.5 ml Bottle EA EYE SCH (21:29)
[2023-08-10] MEDS ORDERED: Ipratropium/Albuterol 3 ML NEB ONE (01:25)
[2023-08-10] MEDS: HYDROcodone/Acetaminophen 10/325 mg Tablet PO PRN ×3 (01:26→21:14)
[2023-08-10] MEDS: Ipratropium/Albuterol 3 ML NEB NEB SCH ×4 (01:33→19:39)
[2023-08-10] MEDS: Sodium Chloride 0.9% 1,000 ML IV SCH (06:40)
[2023-08-10] MEDS: Clopidogrel Bisulfate 75 MG TAB PO SCH (08:43)
[2023-08-10] MEDS: Aspirin 81 mg Enteric Coated Tablet PO SCH (08:43)
[2023-08-10] MEDS: Pentoxifylline 400 MG ER.TAB PO SCH ×3 (08:43→21:12)
[2023-08-10] MEDS: Insulin Glargine 30 UNITS/0.3 ML VIAL SC SCH (08:44)
[2023-08-10] MEDS: Morphine 2 MG/ML VIAL SLOW IVP PRN ×2 (10:52→18:06)
[2023-08-10] MEDS: Lorazepam 2 MG/ML VIAL SLOW IVP PRN ×2 (10:52→18:06)
[2023-08-10] MEDS: Gabapentin 100 MG CAP PO SCH ×2 (15:27→21:12)
[2023-08-10] MEDS: Latanoprost 0.005% Ophth Soln 2.5 ml Bottle EA EYE SCH (21:18)
[2023-08-11] MEDS: Ipratropium/Albuterol 3 ML NEB NEB SCH ×3 (01:27→14:30)
[2023-08-11] MEDS: Lorazepam 2 MG/ML VIAL SLOW IVP PRN ×2 (02:39→14:09)
[2023-08-11] MEDS: Morphine 2 MG/ML VIAL SLOW IVP PRN (02:40)
[2023-08-11] MEDS: Sodium Chloride 0.9% 1,000 ML IV SCH (04:31)
[2023-08-11] MEDS: Gabapentin 100 MG CAP PO SCH ×2 (08:54→14:07)
[2023-08-11] MEDS: Pentoxifylline 400 MG ER.TAB PO SCH ×2 (08:54→14:07)
[2023-08-11] MEDS: Clopidogrel Bisulfate 75 MG TAB PO SCH (08:54)
[2023-08-11] MEDS: Aspirin 81 mg Enteric Coated Tablet PO SCH (08:54)
[2023-08-11] MEDS: HYDROcodone/Acetaminophen 10/325 mg Tablet PO PRN ×2 (08:56→14:08)
[2023-08-11] MEDS: Insulin Glargine 30 UNITS/0.3 ML VIAL SC SCH (08:57)
[2023-08-11 18:27] VITALS: BP 156/77; TEMP 98.1
== END 2023-08-11 15:00 | disposition home or self-care (01) | DRG 208 ==
LOC: ERS 19:33 → SUATTDRO 19:33 → CCU 23:37 → T4-A 08-06 15:57
PROVIDERS: ADMIT Family Medicine; ATTEND Internal Medicine
PROC: 4A133R1 Monitoring of Arterial Saturation, Peripheral, Percutaneous Approach (ICD-10-PCS; principal; 2023-08-04)
PROC: 5A1935Z Respiratory Ventilation, Less than 24 Consecutive Hours (ICD-10-PCS; 2023-08-05)
PROC: 0BH17EZ Insertion of Endotracheal Airway into Trachea, Via Natural or Artificial Opening (ICD-10-PCS; 2023-08-05)
PROC: 5A09457 Assistance with Respiratory Ventilation, 24-96 Consecutive Hours, Continuous Positive Airway Pressure (ICD-10-PCS; 2023-08-05)
DX: J96.21 Acute and chronic respiratory failure with hypoxia (principal); I50.23 Acute on chronic systolic (congestive) heart failure; J44.1 Chronic obstructive pulmonary disease with (acute) exacerbation; E87.20 Acidosis, unspecified; I11.0 Hypertensive heart disease with heart failure; E11.51 Type 2 diabetes mellitus with diabetic peripheral angiopathy without gangrene; E78.5 Hyperlipidemia, unspecified; K21.9 Gastro-esophageal reflux disease without esophagitis; R77.8 Other specified abnormalities of plasma proteins; R74.01 Elevation of levels of liver transaminase levels; D64.9 Anemia, unspecified; H40.9 Unspecified glaucoma; Z91.040 Latex allergy status; Z88.8 Allergy status to other drugs, medicaments and biological substances; Z99.81 Dependence on supplemental oxygen; Z79.899 Other long term (current) drug therapy; Z79.82 Long term (current) use of aspirin; Z79.51 Long term (current) use of inhaled steroids; Z79.4 Long term (current) use of insulin; Z79.84 Long term (current) use of oral hypoglycemic drugs; Z95.5 Presence of coronary angioplasty implant and graft; Z51.5 Encounter for palliative care; Z11.52 Encounter for screening for COVID-19
CPT/HCPCS: 31500; 36415; 36416; 36600; 43753; 51702; 71045; 71275; 80053; 81001; 82805; 83605; 83735; 83880; 84145; 84443; 84484; 85025; 87040; 93005; 93306; 94002; 94640; 94660; 96360; 96365; 96367; 99292; J0456; J0696; J1650; J1815; J1940; J2060; J2272; J2920; J2930; J3010; J3490; J7050; J7620; Q9967; S0028